=== PATIENT | female | born 1945 | race Caucasian/White ===

== ENCOUNTER → 2019-01-28 11:56 | Outpatient (CLI) | payer MEDICARE, SELFPAY ==
--- NOTE | 2019-01-28 | DI.MG.S_ITS ---
BILATERAL DIGITAL SCREENING MAMMOGRAM 3D/2D WITH CAD: 01/28/2019 CLINICAL: Routine screening. Comparison is made to exams dated: 08/15/2017 mammogram, 03/07/2016 mammogram, and 11/03/2014 mammogram - [facility]. There are scattered fibroglandular elements in both breasts. Current study was also evaluated with a Computer Aided Detection (CAD) system. There are benign calcifications in the left breast. There also are benign biopsy clips in the left breast. No significant masses, calcifications, or other findings are seen in either breast. There has been no significant interval change. IMPRESSION: There is no mammographic evidence of malignancy. A 1 year screening mammogram is recommended. This exam was interpreted at Station ID: [id number]. NOTE: For mammograms, a report in lay terms will be sent to the patient. Approximately 15% of breast malignancies will not be visualized mammographically. In the management of a palpable breast mass, a negative mammogram must not discourage biopsy of a clinically suspicious lesion. Electronically Signed By: Shakira mcknight/triston:01/28/2019 20:07:55 letter sent: Normal Exam ACR BI-RADS Category 2: Benign Finding(s) 3342F
== END ==
PROVIDERS: PCP Family Medicine; Visit Provider Family Medicine
DX: Z12.31 Encounter for screening mammogram for malignant neoplasm of breast (principal)
CPT/HCPCS: 77063; 77067

== ENCOUNTER → 2020-02-19 11:12 | Outpatient (CLI) | payer MEDICARE, SELFPAY ==
--- NOTE | 2020-02-19 | DI.MRI.S_ITS ---
PROCEDURE: MR STROKE Pre- and post-contrast brain MRI, non-contrast brain MR angiogram, pre- and postcontrast neck MR angiogram INDICATIONS: Transient cerebral ischemic attack, unspecified TECHNIQUE: Brain: Noncontrast axial T1 spin echo, axial T2 fast spin echo, sagittal and axial FLAIR, coronal T2 fast spin echo, axial gradient echo, axial diffusion and ADC through the brain. After the administration of contrast, axial 3D VIBE of the cranial vasculature and brain. Brain MRA: Non-contrast 3-D time of flight MR angiogram, with multiple townzgk-vvpsiyjih-fgrxufdefs (MIP) reformats performed. Neck MRA: Axial and sagittal TruFISP through the neck. Coronal dynamic MR angiogram during administration of contrast in the arterial and venous phases, with 3-dimenstional sdbpuop-awzbeyxge-igsxumtjme (MIP) reformats constructed from subtraction images. COMPARISON: None. FINDINGS: Image quality: Excellent. BRAIN: CSF spaces: Ventricles are normal in size and shape. Basal cisterns are patent. No extra-axial fluid collections. Brain: No intracranial bleeds or mass effects. Dietrich-white matter interface is normal. Diffusion weighted images show no acute ischemic insults. Brainstem appears normal. Normal intravascular flow voids are present. No abnormal intracranial enhancement. Skull and face: Calvarial marrow signal is normal. Orbits appear normal. Note is made of bilateral lens replacements. Sinuses: Sinuses and mastoids are clear. There is a left sided ismael bullosa, with associated mild to moderate rightward nasal septal deviation noted. BRAIN MR ANGIOGRAM: Anterior circulation: Intracranial internal carotid arteries are normal in size and enhancement. The flow within the paired anterior cerebral arteries is normal and symmetric. The flow within the middle cerebral arteries is normal and symmetric. The anterior communicating artery is not well seen. No stenoses, occlusions, or aneurysms. Posterior circulation: The visualized portions of the vertebral arteries demonstrate normal caliber, and join to form a normal appearing basilar artery. The flow within the posterior cerebral arteries is normal and symmetric. No stenoses, occlusions, or aneurysms. NECK MR ANGIOGRAM: Carotids: Great vessels demonstrate a conventional anatomy as they arise from the aortic arch. The origins of the common carotid arteries appear patent. The calibers and courses of both common carotid arteries are normal. The bifurcation regions appear normal bilaterally. The internal carotid arteries demonstrate normal course and caliber. Posterior circulation: The origins of the vertebral arteries appear patent. More superior portions of both vertebral arteries demonstrate normal course and caliber, and join to form a normal appearing basilar artery. Miscellaneous: Subclavian arteries appear patent. Pre-contrast images through the neck show no soft tissue abnormalities. IMPRESSION: BRAIN MRI: No findings of acute or subacute infarction can be seen. Note is made of age-appropriate brain parenchymal volume loss and chronic small vessel ischemic changes. BRAIN MR ANGIOGRAM: No significant intracranial arterial abnormality can be seen. NECK MR ANGIOGRAM: Within the arteries of the neck, no hemodynamically significant stenosis can be seen. Dictated by: Vasiliy Irwin M.D. on 02/19/2020 at 12:22 Approved by: Vasiliy Irwin M.D. on 02/19/2020 at 12:24
== END ==
PROVIDERS: PCP Family Medicine; Referring Provider Family Medicine; Visit Provider Family Medicine
DX: G45.9 Transient cerebral ischemic attack, unspecified (principal)
CPT/HCPCS: 70548; 70553

== ENCOUNTER → 2020-03-01 11:12 | Outpatient (CLI) | payer MEDICARE, SELFPAY ==
--- NOTE | 2020-03-01 11:15 | DI.MG.S_ITS ---
BILATERAL DIGITAL SCREENING MAMMOGRAM 3D/2D WITH CAD: 03/01/2020 Comparison is made to exams dated: 01/28/2019 mammogram - [facility], 08/15/2017 mammogram, and 03/07/2016 mammogram - [facility]. There are scattered fibroglandular elements in both breasts. Current study was also evaluated with a Computer Aided Detection (CAD) system. There are benign calcifications in the left breast. There also are biopsy clips in the left breast. No significant masses, calcifications, or other findings are seen in either breast. There has been no significant interval change. IMPRESSION: There is no mammographic evidence of malignancy. A 1 year screening mammogram is recommended. This exam was interpreted at Station ID: [id number]. NOTE: For mammograms, a report in lay terms will be sent to the patient. Approximately 15% of breast malignancies will not be visualized mammographically. In the management of a palpable breast mass, a negative mammogram must not discourage biopsy of a clinically suspicious lesion. Electronically Signed By: Armando cash/triston:03/01/2020 15:00:06 letter sent: Normal Exam ACR BI-RADS Category 2: Benign Finding(s) 3342F
== END ==
PROVIDERS: PCP Family Medicine; Referring Provider Family Medicine; Visit Provider Family Medicine
DX: Z12.31 Encounter for screening mammogram for malignant neoplasm of breast (principal)
CPT/HCPCS: 77063; 77067

== ENCOUNTER → 2020-05-03 10:15 | Outpatient (CLI) | payer MEDICARE, SELFPAY ==
--- NOTE | 2020-05-03 | DI.NM.S_ITS ---
PROCEDURE: NM JAYANT PERF SPECT R&S PHARM Rest and pharmacological stress myocardial perfusion SPECT with gated imaging and ejection fraction RADIOPHARMACEUTICAL: 11.7 mCi Tc-99m tetrafosmin IV at rest and 26.1 mCi Tc-99m tetrafosmin IV at peak effect of pharmacological stress. Pon-qlw-azkwzqno was performed. INDICATIONS: ST ELEVATION TECHNIQUE: Radiopharmaceutical was injected at peak stress test, and also at rest. SPECT images were obtained. SPECT myocardial perfusion images were displayed in short axis, horizontal long axis, and vertical long axis views. Gated images were reviewed using [employer] software. COMPARISON: None. CARDIAC STRESS: A pharmacologic stress test was performed under the supervision of an attending staff, using an infusion of Lexiscan . Hemodynamic data: There is normal blood pressure and heart rate response to pharmacologic stress. Symptoms: The patient denied anginal chest pain. Aminophylline: Not used EKG: No diagnostic changes of ischemia; no ectopy. FINDINGS: Raw data: There is good myocardial uptake of radiotracer. No significant motion artifacts. Orhj-kb-gocbr ratio is 0.32 (normal is less than 0.38 for tetrafosmin tracer). Left ventricle function: Gated images demonstrate normal left ventricular wall thickening. No segmental wall motion abnormalities. No transient ischemic dilation; TID is 0.79 (normal less than 1.3). Left ventricle resting end diastolic volume is 49 mL. Left ventricle stress ejection fraction is >75% ; normal range is above 45%. Myocardial perfusion: There is normal distribution of activity in the left ventricular myocardium. No fixed or reversible perfusion defects. IMPRESSION: -Normal pharmacological myocardial perfusion study with no evidence of ischemia or scar. -Hyperdynamic LV. -Low risk study Dictated by: Omi Lee M.D. on 05/03/2020 at 20:08 Approved by: Omi Lee M.D. on 05/03/2020 at 20:11
== END ==
PROVIDERS: PCP Family Medicine; Referring Provider Family Medicine; Visit Provider Family Medicine
DX: I21.29 ST elevation (STEMI) myocardial infarction involving other sites (principal)
CPT/HCPCS: 78452; 93017; A9502; J2785

== ENCOUNTER → 2020-09-16 11:11 | Outpatient (CLI) | payer MEDICARE, SELFPAY ==
--- NOTE | 2020-09-16 11:58 | DI.CT.S_ITS ---
PROCEDURE: CT ABDOMEN PELVIS WO/W CON INDICATIONS: Other microscopic hematuria TECHNIQUE: Optional 5 mm thick noncontrast images acquired from the diaphragm to the symphysis pubis. After the administration of intravenous contrast, 5 mm thick images acquired from the diaphragm to the symphysis pubis after a 10-minute delay. 2 mm thick coronal and sagittal reformats were then performed of the kidneys and ureters. For radiation dose reduction, the following was used: automated exposure control, adjustment of mA and/or kV according to patient size. COMPARISON: None. FINDINGS: Image quality: Excellent. Lung bases: Lung bases are clear. Heart size is normal. Small to moderate hiatal hernia behind the heart. Urinary system: Both kidneys are normal in size, without hydronephrosis or nephrolithiasis on pre-contrast images. No perinephric fat stranding. There is normal bilateral renal enhancement. Renal calyces appear normal in morphology when filled with contrast. Opacified portions of both ureters demonstrate normal caliber. Bladder wall thickness is normal. No calcified bladder stones. Other solid organs: Liver is normal in size and enhancement. Gallbladder appears normal except for possible several very small noncalcified stones or sludge within the gallbladder lumen posteriorly . Biliary system is non dilated. Pancreas enhances normally. Spleen is normal in size and enhancement. No adrenal nodules. Peritoneum and bowel: Bowel loops demonstrate normal wall thickness and caliber. No free fluid or air. Nodes and vessels: No retroperitoneal or mesenteric adenopathy by size criteria. Aorta and inferior vena cava are normal in size. Abdominal wall: No ventral hernias. Pelvis: No pathologic free pelvic fluid. No inguinal hernias or adenopathy. Bones: No suspicious bony lesions. No vertebral body compression fractures. IMPRESSION: No urinary tract stones are found. No urothelial or renal cortical mass lesion is identified. A source of micro hematuria is not found. No current active disease is identified. Incidental note is made of a small to moderate size sliding hiatal hernia behind the heart. Dictated by: Gelacio Barboza M.D. on 09/16/2020 at 12:00 Approved by: Gelacio Barboza M.D. on 09/16/2020 at 12:03
== END ==
PROVIDERS: PCP Family Medicine; Referring Provider Family Medicine; Visit Provider Family Medicine
DX: R31.29 Other microscopic hematuria (principal); K44.9 Diaphragmatic hernia without obstruction or gangrene
CPT/HCPCS: 74178; Q9967

== ENCOUNTER → 2021-01-12 13:30 | Outpatient (CLI) | payer MEDICARE, SELFPAY | PROVIDERS: PCP Family Medicine; Visit Provider Specialist | DX: N39.0 Urinary tract infection, site not specified (principal); R31.9 Hematuria, unspecified; N95.2 Postmenopausal atrophic vaginitis | CPT/HCPCS: 52000; 81002; 87086; 99214 ==

== ENCOUNTER → 2021-03-10 11:12 | Outpatient (CLI) | payer MEDICARE, SELFPAY ==
--- NOTE | 2021-03-10 11:14 | DI.MG.S_ITS ---
BILATERAL DIGITAL SCREENING MAMMOGRAM 3D/2D WITH CAD: 03/10/2021 CLINICAL: Routine screening. Comparison is made to exams dated: 03/01/2020 mammogram, 01/28/2019 mammogram - [facility], and 08/15/2017 mammogram - [facility]. There are scattered fibroglandular elements in both breasts. Current study was also evaluated with a Computer Aided Detection (CAD) system. There are benign calcifications in both breasts. There also are biopsy clips in the left breast. There are mole markers on both breasts. No significant masses, calcifications, or other findings are seen in either breast. There has been no significant interval change. IMPRESSION: BENIGN There is no mammographic evidence of malignancy. A 1 year screening mammogram is recommended. This exam was interpreted at Station ID: [id number]. NOTE: For mammograms, a report in lay terms will be sent to the patient. Approximately 15% of breast malignancies will not be visualized mammographically. In the management of a palpable breast mass, a negative mammogram must not discourage biopsy of a clinically suspicious lesion. Electronically Signed By: Irineo Fontaine acr/penrad:03/10/2021 12:40:23 letter sent: Normal Exam ACR BI-RADS Category 2: Benign Finding(s) 3342F
== END ==
PROVIDERS: PCP Family Medicine; Referring Provider Family Medicine; Visit Provider Family Medicine
DX: Z12.31 Encounter for screening mammogram for malignant neoplasm of breast (principal)
CPT/HCPCS: 77063; 77067

== ENCOUNTER 2021-09-04 08:13 | Inpatient (IN) | payer MEDICARE, SELFPAY ==
[2021-09-04] VITALS (48 sets, daily range): BP systolic 73–160; BP diastolic 38–79; PULSE 70–102; RESP 0–26; TEMP 35.1–36.5; O2SAT 92–100; BMI 25.7
--- NOTE | 2021-09-04 | PATH_ITS ---
[facility] Accession Number: [id number] . 01 Material submitted: . gallbladder - GALLBLADDER . 02 Diagnosis: Gallbladder, Cholecystectomy: Cholelithiasis with mild chronic and active cholecystitis. No evidence of neoplasm. [facility] 09/07/2021 1719 Local . 02 Electronically signed: . Ryan Angeles MD, PhD, Pathologist NPI- [id number] . 01 Gross description: . The specimen is received in formalin labeled gallbladder and consists of a 7.5 x 3.0 x 2.5 cm previously disrupted gallbladder with a 0.2 cm in diameter cystic duct. The serosa is fernandez-pink and wrinkled. Opening reveals green viscous bile with two black-brown multifaceted choleliths measuring 0.5 x 0.4 x 0.3 cm in aggregate. The mucosa is fernandez-pink and velvety and the wall thickness measures 0.2 cm. Corporate Staff Accountant sections are submitted, to include the en face cystic duct margin (blue) in cassette A1. ([id number]) /[facility] 09/06/[id number] Local . 02 Pathologist provided ICD-10: K81.2 . 02 CPT . 909610 Performed at: 01 [facility] [address], [place], [place] [id number] MD Alfredito Shankar MD Phone: [phone] Performed at: 02 [facility] [address] [place], [place] [id number] MD Isi Bowman MD Phone: [phone]
--- NOTE | 2021-09-04 08:15 | ED.GENADULT ---
HPI - General Adult General Chief complaint: Chest Pain Stated complaint: Poss Cardiac issues- sent by [place] EMT's Time Seen by Provider: 09/04/21 08:15 History of Present Illness HPI narrative: 75-year-old woman from [facility] with a history of hypertension, ITP, surgically removed thyroid on replacement, scoliosis with left hip pain was awoken from sleep this morning to a.m. with severe chest pain she rated as an 8/10 focus between her breasts and associated with bandlike tightness around her lower chest just under her breasts. Was not associated with diaphoresis, dyspnea or palpitations. She did have an episode of emesis prior to arrival. On arrival in the emergency department after being transported from [facility], she is complaining of 4/10 pain that continues to feel like a band like tightness. She notes that she had a large hiatal hernia it was causing dyspnea about 8 years ago that was surgically repaired. She notes that prior to arrival she took a regular aspirin and was given 4 chewable aspirin by medics. She think she was also given some nitroglycerin by medics and that it may have helped but she is not entirely certain. She describes no recent increase in exertional dyspnea no prior chest pain no personal history of cardiac issues, no abdominal pain or diarrhea, no orthopnea, no lower extremity edema and no recent headaches. Related Data Home Medications Medication Instructions Recorded Confirmed levothyroxine 112 mcg tablet 112 mcg PO QAM 04/19/21 09/04/21 estradiol 1 g VAGINAL 2XW 09/04/21 09/04/21 netarsudil 0.02 %-latanoprost 1 drp OPHTHALMIC (EYE) QAM 09/04/21 09/04/21 0.005 % eye drops ([facility]) simvastatin 40 mg tablet 40 mg PO DAILY 09/04/21 09/04/21 vitamin B complex (B 1 tab PO QAM 09/04/21 09/04/21 Complex-Vitamin B12) Previous Rx's Medication Instructions Recorded chlorthalidone 25 mg tablet 25 mg PO QAM #90 tab 02/13/17 irbesartan 150 mg tablet 150 mg PO QAM #90 tab 02/13/17 sertraline 100 mg tablet 100 mg PO QAM #90 tab 02/13/17 oxycodone-acetaminophen 5 mg-325 2 tab PO Q4H PRN #30 tab 07/11/21 mg tablet Allergies Allergy/AdvReac Type Severity Reaction Status Date / Time No Known Drug Allergies Allergy Verified 09/04/21 08:21 Review of Systems Review of Systems Narrative: Remainder of complete review of systems is otherwise unremarkable except for that included in the HPI. Patient History Medical History Arthritis Atrophic vaginitis Benign microscopic hematuria Cystocele History of skin cancer Hypertension (01/05/15) Hypothyroidism (01/05/15) Inflammatory bowel disease Rectocele Recurrent UTI Scar of conjunctiva of right eye Scoliosis Screening for breast cancer Surgical History H/O thyroidectomy History of hip replacement History of repair of hiatal hernia Status post glaucoma surgery Status post Annamaria fundoplication Family History Father Coronary artery disease Gout Hypertension Social History marital status: unmarried,single number of children: 2 household members: significant other Smoking Status: Never smoker alcohol intake: current caffeine: Yes Smoking Status: Never smoker Exam Narrative Exam Narrative: General: Healthy appearing, in no acute distress. Able to give a complete and coherent history. Well-nourished well-developed HEENT: Moist mucous membranes, normal sclera with reactive pupils, Neck: No JVD, supple Respiratory: Lungs are clear to auscultation, no wheezing no rales no rhonchi. Full and symmetrical air movement Cardiac: Regular rate and rhythm no murmurs no bruits Abdomen: Soft, nontender, good bowel tones, no flank pain Skin: Warm and dry, no rashes Neurologic: Grossly neurologically intact with no obvious asymmetries or abnormalities Extremities: No trauma, well perfused Psych: Cooperative, appropriate insight and affect Initial Vital Signs Initial Vital Signs: Vital Signs Pulse Rate 98 H 09/04/21 08:19 Pulse Oximetry 95 09/04/21 08:19 Course Orders Ordered: ED Orders 09/04/21 09:26 CT abdomen pelvis w con Stat 09/04/21 09:28 COVID19 - ADMIT (ASSISTANT SPA DIRECTOR swab/PCR) Stat 09/04/21 09:45 Ictotest Urine Stat Urinalysis and Microscopic Stat 09/04/21 12:48 MR abdomen wo con Stat Acetaminophen (Acetaminophen 325 Mg Tablet) 650 mg PO Q6HR ZORAIDA Al Hydrox/Mg Hydrox/Simethicone (Mag Hydrox/Alum/Simeth 30 Ml Udc) 30 ml PO Q6HR PRN PRN Reason: Dyspepsia Calcium Carbonate (Calcium Carbonate 500 Mg Tab) 1,000 mg PO Q4HR PRN PRN Reason: Dyspepsia Fentanyl (Fentanyl 100 Mcg/2 Ml Inj) 0 mcg IV Q5M PRN PRN Reason: Pain, Moderate (4-6) Hydromorphone HCl (Hydromorphone 0.5 Mg Inj) 0.5 mg IV Q6H PRN PRN Reason: Pain, Moderate (4-6) Hydromorphone HCl (Hydromorphone 2 Mg Inj) 0 mg IV Q5M PRN PRN Reason: Pain, Severe (7-10) Sodium Chloride (Normal Saline 0.9%) 1,000 mls @ 100 mls/hr IV CONT ZORAIDA Piperacillin Sod/Tazobactam (Sod 3.375 gm/ Sodium Chloride) 100 mls @ 25 mls/hr IV Q8H ZORAIDA Last Admin: 09/04/21 17:35 Dose: 25 mls/hr Documented by: CECIL Lactated Ringer's (Lactated Ringers) 1,000 mls @ 42 mls/hr IV NOW ONE Stop: 09/05/21 17:20 Last Admin: 09/04/21 17:32 Dose: 42 mls/hr Documented by: KEVIN Lorazepam (Lorazepam 2 Mg/Ml Inj) 0.25 mg IV NOW PRN PRN Reason: Anxiety Naloxone HCl (Naloxone 0.4 Mg/Ml Vial) 0.2 mg IV Q2MIN PRN PRN Reason: Opiate Reversal Ondansetron HCl (Ondansetron 4 Mg/2 Ml Inj) 4 mg IV Q8HR PRN PRN Reason: Nausea And Vomiting Ondansetron HCl (Ondansetron 4 Mg/2 Ml Inj) 4 mg IV NOW PRN PRN Reason: Nausea And Vomiting Oxycodone HCl (Oxycodone Ir 5 Mg Tablet) 5 mg PO Q6HR PRN PRN Reason: Pain, Moderate (4-6) Oxycodone/Acetaminophen (Oxycodone/Acetaminophen 5/325 Tablet) 1 tab PO PACUNOW PRN PRN Reason: Mild or Moderate Pain Discontinued Medications Bupivacaine HCl (Bupivacaine 0.5% (Pf) Vial) 30 ml INJ NOW ONE Stop: 09/04/21 18:08 Last Admin: 09/04/21 18:07 Dose: 20 ml Documented by: ANTONIO Sodium Chloride (Normal Saline 0.9%) 1,000 mls @ 1,000 mls/hr IV BOLUS ONE Stop: 09/04/21 10:19 Last Infusion: 09/04/21 12:44 Dose: 0 mls/hr Documented by: Admin: 09/04/21 09:26 Dose: 1,000 mls/hr Documented by: NILDA Ceftriaxone Sodium 2,000 mg/ (Sodium Chloride) 100 mls @ 200 mls/hr IV NOW ONE Stop: 09/04/21 09:27 Last Infusion: 09/04/21 10:22 Dose: 0 mls/hr Documented by: Admin: 09/04/21 09:40 Dose: 200 mls/hr Documented by: RICHIE Nitroglycerin (Nitroglycerin 0.4 Mg Sl Tab) 0.4 mg SL [id number] PRN PRN Reason: Chest Pain Last Admin: 09/04/21 08:54 Dose: 0.4 mg Documented by: Admin: 09/04/21 08:40 Dose: 0.4 mg Documented by: Admin: 09/04/21 08:34 Dose: 0.4 mg Documented by: RICHIE Vital Signs Vital signs: Vital Signs - 8 hr 09/04/21 10:30 09/04/21 11:00 09/04/21 11:09 Pulse Rate 91 H 90 91 H Respiratory Rate 17 26 H Blood Pressure 117/70 120/65 110/67 Pulse Oximetry 96 95 94 09/04/21 11:30 09/04/21 12:00 09/04/21 12:30 Pulse Rate 91 H 90 92 H Respiratory Rate 18 13 13 Blood Pressure 118/67 121/69 124/71 Pulse Oximetry 96 97 98 09/04/21 13:00 09/04/21 13:30 09/04/21 14:00 Pulse Rate 90 92 H 86 Respiratory Rate 16 19 16 Blood Pressure 119/68 120/70 123/68 Pulse Oximetry 97 98 09/04/21 14:30 09/04/21 16:41 Pulse Rate 83 81 Respiratory Rate 17 Blood Pressure 118/61 147/70 H Pulse Oximetry 97 Medical Decision Making Lab Data Result diagrams: 09/04/21 08:20 09/04/21 08:20 Labs: Lab Results 09/04/21 09/04/21 09/04/21 Range/Units 08:20 08:20 08:20 WBC 11.3 H (4.5-11.0) X10^3/uL RBC 4.10 (4.0-5.2) X10^6/uL Hgb 13.6 (12.0-16.0) g/dL Hct 39.9 (36-46) % MCV 97.3 (80-100) fL MCH 33.1 (26-34) PG MCHC 34.0 (30-36) % RDW 13.4 (11.6-14.8) % Plt Count 103 L (150-400) X10^3/uL Neut % (Auto) 93.3 H (50-75) % Lymph % (Auto) 2.4 L (25-40) % [place] % (Auto) 3.3 (3-14) % Eos % (Auto) 0.8 L (2-4) % Baso % (Auto) 0.2 (0-2) % Neut # (Auto) 23005 H (4418-6621) /uL Lymph # (Auto) 300 L (6521-7492) /uL [place] # (Auto) 400 (0-900) /uL Eos # (Auto) 100 (0-450) /uL Baso # (Auto) 0 (0-100) /uL Sodium 137 (137-145) mmol/L Potassium 3.5 (3.4-5.1) mmol/L Chloride 99 (98-107) mmol/L Carbon Dioxide 30 (22-32) mmol/L BUN 24 H (7-17) mg/dL Creatinine 0.92 (0.52-1.04) mg/dL Estimated GFR 59.4 L (>60) mL/min BUN/Creatinine Ratio 26.1 H (6-22) Glucose 130 H (80-110) mg/dL Calcium 9.8 (8.4-10.2) mg/dL Magnesium 1.6 (1.6-2.3) mg/dL Total Bilirubin 5.4 H (0.2-1.3) mg/dL AST 336 H (14-36) IU/L ALT 263 H (<35) IU/L Alkaline Phosphatase 204 H (38-126) U/L Troponin I < 0.012 (0.01-0.034) ng/mL Total Protein 7.8 (6.3-8.2) g/dL Albumin 4.5 (3.5-5.0) g/dL Globulin 3.3 (1.7-4.1) g/dL Albumin/Globulin Ratio 1.4 (1.0-2.8) Lipase 171 (23-300) U/L Urine Color Urine Appearance Urine pH (4.5-8.0) Ur Specific [place] (1.000-1.035) Urine Protein (Negative) Urine Glucose (UA) (Negative) g/dL Urine Ketones (NEGATIVE) Urine Occult Blood (Negative) Urine Nitrate (Negative) Urine Bilirubin (NEGATIVE) Ur Bilirubin Confirm (Negative) Urine Urobilinogen (0.2) E.U./dL Ur Leukocyte Esterase (NEGATIVE) Urine RBC (0-5/HPF) Urine WBC (0-5/HPF) Ur Squamous Epith Cells (0-5/HPF) Urine Bacteria (None) Ur Culture Indicated? SARS-CoV-2 (PCR) (Negative) 09/04/21 09/04/21 Range/Units 09:28 09:45 WBC (4.5-11.0) X10^3/uL RBC (4.0-5.2) X10^6/uL Hgb (12.0-16.0) g/dL Hct (36-46) % MCV (80-100) fL MCH (26-34) PG MCHC (30-36) % RDW (11.6-14.8) % Plt Count (150-400) X10^3/uL Neut % (Auto) (50-75) % Lymph % (Auto) (25-40) % [place] % (Auto) (3-14) % Eos % (Auto) (2-4) % Baso % (Auto) (0-2) % Neut # (Auto) (2448-5828) /uL Lymph # (Auto) (6484-9569) /uL [place] # (Auto) (0-900) /uL Eos # (Auto) (0-450) /uL Baso # (Auto) (0-100) /uL Sodium (137-145) mmol/L Potassium (3.4-5.1) mmol/L Chloride (98-107) mmol/L Carbon Dioxide (22-32) mmol/L BUN (7-17) mg/dL Creatinine (0.52-1.04) mg/dL Estimated GFR (>60) mL/min BUN/Creatinine Ratio (6-22) Glucose (80-110) mg/dL Calcium (8.4-10.2) mg/dL Magnesium (1.6-2.3) mg/dL Total Bilirubin (0.2-1.3) mg/dL AST (14-36) IU/L ALT (<35) IU/L Alkaline Phosphatase (38-126) U/L Troponin I (0.01-0.034) ng/mL Total Protein (6.3-8.2) g/dL Albumin (3.5-5.0) g/dL Globulin (1.7-4.1) g/dL Albumin/Globulin Ratio (1.0-2.8) Lipase (23-300) U/L Urine Color Shruti Urine Appearance Sl cloudy Urine pH 5.5 (4.5-8.0) Ur Specific [place] 1.020 (1.000-1.035) Urine Protein 1+ H (Negative) Urine Glucose (UA) Trace H (Negative) g/dL Urine Ketones 1+ H (NEGATIVE) Urine Occult Blood 3+ H (Negative) Urine Nitrate Negative (Negative) Urine Bilirubin 2+ H (NEGATIVE) Ur Bilirubin Confirm Positive H (Negative) Urine Urobilinogen 2.0 H (0.2) E.U./dL Ur Leukocyte Esterase Trace H (NEGATIVE) Urine RBC 5-10/hpf H (0-5/HPF) Urine WBC 1-5/hpf (0-5/HPF) Ur Squamous Epith Cells 5-10 /hpf H (0-5/HPF) Urine Bacteria Few (2-10) H (None) Ur Culture Indicated? Cult not indicated SARS-CoV-2 (PCR) Negative (Negative) Urine Dip Bedside Urine Glucose Negative Bedside Urine Bilirubin ++ 2 Bedside Urine Ketone +/- 5 Urine Specific [place] 1.020 Bedside Urine Occult Blood +++ Bedside Urine pH 6.0 Bedside Urine Protein + 30 Bedside Urine Urobilinogen 2+ 4mg Bedside Urine Nitrite - Negative Bedside Urine Leukocytes + 70 Esterase Point of care testing: Urine Dip Bedside Urine Glucose Negative Bedside Urine Bilirubin ++ 2 Bedside Urine Ketone +/- 5 Urine Specific [place] 1.020 Bedside Urine Occult Blood +++ Bedside Urine pH 6.0 Bedside Urine Protein + 30 Bedside Urine Urobilinogen 2+ 4mg Bedside Urine Nitrite - Negative Bedside Urine Leukocytes + [address] scan - abdomen/pelvis: Radiologist's Impression: FINDINGS:? Image quality:? There is metallic streak artifact from patient's right hip prosthesis.? ? Lung bases:? There is minimal atelectasis and scarring in the right lung base. Heart:? Heart is normal in size.? There is a small to moderate hiatal hernia. ? ABDOMEN: Liver:? Unremarkable.? ? Gallbladder:? The gallbladder is distended with a few small dependent noncalcified gallstones or biliary sludge.? No gallbladder wall thickening or pericholecystic fluid. Biliary ducts:? Unremarkable.? ? Pancreas:? Unremarkable.? ? Spleen:? Unremarkable.? ? Adrenal Glands:? Unremarkable.? ? Kidneys and Ureters:? There is no hydronephrosis.? A few small hypodense foci are demonstrated in the left kidney which are too small to characterize but likely represent cysts.? ? ? Stomach and Bowel:? Stomach and small bowel loops are normal in caliber and wall thickness.? No pericecal inflammatory changes to suggest appendicitis.? There is mild colonic wall thickening with minimal pericolonic fat stranding involving a long segment of the colon beginning in the mid ascending colon extending through the sigmoid colon suggestive of a mild infectious or inflammatory colitis.? Peritoneum:? No abnormal intraperitoneal fluid.? No free air.? ? Ventral Wall: ? No hernia.? Abdominal Nodes:? No retroperitoneal or mesenteric adenopathy by size criteria.? Vessels:? Aorta and inferior vena cava are normal in size.? ? PELVIS: Pelvic Organs:? Unremarkable.? ? Bladder:? Unremarkable.? ? Pelvic Nodes: No enlarged lymph nodes.? Miscellaneous: No inguinal hernias are seen. ? ? ? Bones:? There is a dextroscoliosis of the lumbar spine centered at L2-L3.? Multilevel moderate degenerative disc disease is demonstrated within the lower thoracic and upper lumbar spine.? There is also multilevel moderate facet arthropathy in the lower lumbar spine. ? ? IMPRESSION:? ? 1. Distention of the gallbladder with small dependent noncalcified gallstones or biliary sludge.? No gallbladder wall thickening or pericholecystic fluid to suggest definite cholecystitis.? Further evaluation may be obtained with ultrasound if there is clinical suspicion for cholecystitis. ? 2. Long-segment mild colonic wall thickening as described suggestive of a mild infectious or inflammatory colitis.? ? ? Dictated by: Alfredito Kruse M.D. on 09/04/2021 at 9:05? ?? US - abdomen: Radiologist's Impression: FINDINGS:? ? Liver:? Liver is enlarged measuring 17.5 cm with diffuse increased echogenicity.? No focal lesions. ? Gallbladder:? Gallbladder demonstrates mobile areas of increased echogenicity.? Wall is mildly thickened measuring 3.1 cm.? The gallbladder is markedly distended.? ? Biliary ducts:? Intrahepatic bile ducts are non-dilated.? Extrahepatic bile duct caliber measures 8.8 mm.? Normal is 6-7 mm or less in diameter, or 10 mm or less post-cholecystectomy.? ? Pancreas:? Pancreas is only seen in limited view.? Please see CT abdomen pelvis report of 09/04/2021 for further details. ? ? IMPRESSION:? ? 1. Hepatomegaly with steatosis. ? 2. Markedly distended gallbladder with gallstones as well as mildly prominent wall thickness.? Cholelithiasis with potential cholecystitis should be considered as clinically appropriate. ? Dictated by: Leticia Guerrero M.D. on 09/04/2021 at 9:52? ?? ECG Data Interpretation: Sinus rhythm at a rate of 93 Leftward axis, normal interval No acute ischemic changes MDM Narrative Medical decision making narrative: 75-year-old woman with history of hypertension and hyperlipidemia presents with bandlike chest pain at 2:00 a.m. this morning. Cardiac workup is entirely unremarkable with negative troponins. White count is 11.3, chemistries reveal significantly elevated total bili AST ALT and alk-phos. She does not initially complain of right upper quadrant tenderness however with deep palpation she does note some mild discomfort. Ultrasound shows markedly distended gallbladder with gallstones as well as mildly prominent wall thickness. CT scan of the abdomen is done due to the elevated bilirubin and alk-phos this reveals distended gallbladder mild colonic wall thickening suggestive of mild infectious or inflammatory colitis (which does not correlate with clinical complaints for physical exam). Liver, biliary ducts and pancreas are all described as normal. Patient is currently afebrile. Will review findings with Dr. Rivera, general surgeon. 12:[address] Rivera. He recommends ERCP. If a stone is noted then she will need transfer and if not will be able to admit her here with anticipation of cholecystectomy Discharge Plan Departure Patient Disposition: Admitted as Observation Clinical Impression: Acute cholecystitis Admit Date/Time: 09/04/21 17:02 Admit Provider: Sudheer Rivera
--- NOTE | 2021-09-04 08:31 | DI.RAD.S_ITS ---
PROCEDURE: XR CHEST 1V INDICATIONS: Chest pain TECHNIQUE: One view of the chest was acquired. COMPARISON: None. FINDINGS: Surgical changes and devices: Surgical clips at midline in the thoracic inlet. Lungs and pleura: Subtle perihilar infiltrates. No pleural effusions or pneumothorax. Mediastinum: Mediastinal contours appear normal. Heart size is normal. Tortuous aorta. Suspect a moderate-sized hiatal hernia. Bones and chest wall: Moderate scoliosis. No suspicious bony lesions. Overlying soft tissues appear unremarkable. IMPRESSION: 1. Subtle perihilar infiltrates. 2. Question moderate-sized hiatal hernia. Dictated by: Erma Hammond M.D. on 09/04/2021 at 9:07 Approved by: Erma Hammond M.D. on 09/04/2021 at 9:09
[2021-09-04] MEDS: NITROGLYCERIN 0.4 MG SL TAB SL ×3 (08:34→08:54)
[2021-09-04 08:42] LABS: Add Manual Diff / Slide Review NO; Basophils Absolute Auto 0 /uL (0-100); Basophils Percent Auto 0.2 % (0-2); Eosinophils Absolute Auto 100 /uL (0-450); Eosinophils Percent Auto 0.8 % (2-4); Hematocrit 39.9 % (36-46); Hemoglobin 13.6 g/dL (12.0-16.0); Lymphocytes Absolute Auto 300 /uL (1100-4500); Lymphocytes Percent Auto 2.4 % (25-40); Mean Corpuscular Hemoglobin 33.1 PG (26-34); Mean Corpuscular Volume 97.3 fL (80-100); Monocytes Absolute Auto 400 /uL (0-900); Monocytes Percent Auto 3.3 % (3-14); Neutrophils Absolute Auto 10500 /uL (1500-7000); Neutrophils Percent Auto 93.3 % (50-75); Platelet Count 103 X10^3/uL (150-400); Red Cell Distribution Width 13.4 % (11.6-14.8); White Blood Cell Count 11.3 X10^3/uL (4.5-11.0)
[2021-09-04 08:54] LABS: Alanine Aminotransferase 263 IU/L (<35); Albumin 4.5 g/dL (3.5-5.0); Albumin Globulin Ratio 1.4 (1.0-2.8); Alkaline Phosphatase 204 U/L (38-126); Aspartate Aminotransferase 336 IU/L (14-36); BUN Creatinine Ratio 26.1 (6-22); Bilirubin Total 5.4 mg/dL (0.2-1.3); Blood Urea Nitrogen 24 mg/dL (7-17); Calcium 9.8 mg/dL (8.4-10.2); Carbon Dioxide 30 mmol/L (22-32); Chloride 99 mmol/L (98-107); Estimated Glomerular Filt Rate 59.4 mL/min (>60); Globulin 3.3 g/dL (1.7-4.1); Glucose 130 mg/dL (80-110); HEMOLYSIS 27 (0-50); Lipase 171 U/L (23-300); Potassium 3.5 mmol/L (3.4-5.1); Sodium 137 mmol/L (137-145); Total Protein 7.8 g/dL (6.3-8.2)
[2021-09-04 08:55] LABS: Magnesium 1.6 mg/dL (1.6-2.3)
--- NOTE | 2021-09-04 08:57 | DI.US.S_ITS ---
PROCEDURE: US ABDOMEN LIMITED INDICATIONS: ELEVATED LIVER FUNCTION TESTS TECHNIQUE: Real-time scanning was performed of the abdominal and retroperitoneal organs, with image documentation. COMPARISON: [facility], CT, CT ABDOMEN PELVIS W CON, 09/04/2021, 9:39. FINDINGS: Liver: Liver is enlarged measuring 17.5 cm with diffuse increased echogenicity. No focal lesions. Gallbladder: Gallbladder demonstrates mobile areas of increased echogenicity. Wall is mildly thickened measuring 3.1 cm. The gallbladder is markedly distended. Biliary ducts: Intrahepatic bile ducts are non-dilated. Extrahepatic bile duct caliber measures 8.8 mm. Normal is 6-7 mm or less in diameter, or 10 mm or less post-cholecystectomy. Pancreas: Pancreas is only seen in limited view. Please see CT abdomen pelvis report of 09/04/2021 for further details. IMPRESSION: 1. Hepatomegaly with steatosis. 2. Markedly distended gallbladder with gallstones as well as mildly prominent wall thickness. Cholelithiasis with potential cholecystitis should be considered as clinically appropriate. Dictated by: Leticia Guerrero M.D. on 09/04/2021 at 9:52 Approved by: Leticia Guerrero M.D. on 09/04/2021 at 9:54
--- NOTE | 2021-09-04 09:02 | PC.NURSE ---
No change in pain after 3rd nitro.
[2021-09-04 09:06] LABS: Troponin I < 0.012 ng/mL (0.01-0.034)
[2021-09-04] MEDS: SODIUM CHLORIDE 0.9% 1,000 ML 1000 ML IV (09:26)
--- NOTE | 2021-09-04 09:26 | DI.CT.S_ITS ---
PROCEDURE: CT ABDOMEN PELVIS W CON INDICATIONS: bandlike abd pain, elevated bili/alk phos TECHNIQUE: After the administration of IV contrast, axial sections were acquired from the lung bases to the pubic symphysis. Coronal and sagittal reformats were performed. For radiation dose reduction, the following was used: automated exposure control, adjustment of mA and/or kV according to patient size. COMPARISON: [facility], CT, CT ABDOMEN PELVIS WO/W CON, 09/16/2020, 11:20. [facility], US, US ABDOMEN LIMITED, 09/04/2021, 9:08. FINDINGS: Image quality: There is metallic streak artifact from patient's right hip prosthesis. Lung bases: There is minimal atelectasis and scarring in the right lung base. Heart: Heart is normal in size. There is a small to moderate hiatal hernia. ABDOMEN: Liver: Unremarkable. Gallbladder: The gallbladder is distended with a few small dependent noncalcified gallstones or biliary sludge. No gallbladder wall thickening or pericholecystic fluid. Biliary ducts: Unremarkable. Pancreas: Unremarkable. Spleen: Unremarkable. Adrenal Glands: Unremarkable. Kidneys and Ureters: There is no hydronephrosis. A few small hypodense foci are demonstrated in the left kidney which are too small to characterize but likely represent cysts. Stomach and Bowel: Stomach and small bowel loops are normal in caliber and wall thickness. No pericecal inflammatory changes to suggest appendicitis. There is mild colonic wall thickening with minimal pericolonic fat stranding involving a long segment of the colon beginning in the mid ascending colon extending through the sigmoid colon suggestive of a mild infectious or inflammatory colitis. Peritoneum: No abnormal intraperitoneal fluid. No free air. Ventral Wall: No hernia. Abdominal Nodes: No retroperitoneal or mesenteric adenopathy by size criteria. Vessels: Aorta and inferior vena cava are normal in size. PELVIS: Pelvic Organs: Unremarkable. Bladder: Unremarkable. Pelvic Nodes: No enlarged lymph nodes. Miscellaneous: No inguinal hernias are seen. Bones: There is a dextroscoliosis of the lumbar spine centered at L2-L3. Multilevel moderate degenerative disc disease is demonstrated within the lower thoracic and upper lumbar spine. There is also multilevel moderate facet arthropathy in the lower lumbar spine. IMPRESSION: 1. Distention of the gallbladder with small dependent noncalcified gallstones or biliary sludge. No gallbladder wall thickening or pericholecystic fluid to suggest definite cholecystitis. Further evaluation may be obtained with ultrasound if there is clinical suspicion for cholecystitis. 2. Long-segment mild colonic wall thickening as described suggestive of a mild infectious or inflammatory colitis. Dictated by: Alfredito Kruse M.D. on 09/04/2021 at 9:05 Approved by: Alfredito Kruse M.D. on 09/04/2021 at 9:16
[2021-09-04] MEDS: cefTRIAXone 2,000 MG in SODIUM CHLORIDE 0.9% 100 ML 200 ML IV (09:40)
[2021-09-04 11:24] LABS: Appearance Urine UA SL CLOUDY; Bilirubin Urine UA 2+ (NEGATIVE); Glucose Urine UA TRACE g/dL (Negative); Ketones Urine UA 1+ (NEGATIVE); Leukocyte Esterase Urine UA TRACE (NEGATIVE); Nitrite Urine UA NEGATIVE (Negative); Occult Blood Urine UA 3+ (Negative); Protein Urine UA 1+ (Negative)
[2021-09-04 11:35] LABS: Color Urine UA Amber; pH Urine UA 5.5 (4.5-8.0)
[2021-09-04 11:45] LABS: Bacteria Urine Few (2-10); Culture Indicated Urine Cult Not Indicated; Ictotest Urine Positive (Negative); RBC Urine 5-10/HPF (0-5/HPF); Squamous Epithelial Cell Urine 5-10 /HPF (0-5/HPF); WBC Urine 1-5/HPF (0-5/HPF)
[2021-09-04 11:55] LABS: COVID19 - ADMIT (NP swab/PCR) Negative (Negative)
--- NOTE | 2021-09-04 12:48 | DI.MRI.S_ITS ---
PROCEDURE: MR ABDOMEN WO CON INDICATIONS: MRCP. ? common duct stone. Epigastric pain TECHNIQUE: Coronal HASTE through the abdomen, axial 2-D FLASH in- and [id number], and breath-hold T2 FSE with fat saturation through the biliary system and pancreas. Oblique coronal and axial thin-slice HASTE, radial thick-slab HASTE centered on the extrahepatic bile ducts. Intravenous secretin: Not requested. COMPARISON: [facility], CT, CT ABDOMEN PELVIS W CON, 09/04/2021, 9:39. FINDINGS: Image quality: Excellent. Pancreas and biliary system: Intra- and extra-hepatic biliary ducts are non dilated. Pancreas is normal in morphology, without adjacent soft tissue edema. Pancreatic duct is normal in caliber, without developmental anomalies. The gallbladder is distended with no significant wall thickening or pericholecystic fluid. There are layering small stones.. No gallbladder wall thickening or pericholecystic fluid. . Other solid organs: Liver is normal in size. Spleen is normal in size. No adrenal nodules. Both kidneys are normal in size, without hydronephrosis. Nodes and vessels: No retroperitoneal or mesenteric adenopathy by size criteria. Aorta and inferior vena cava are normal in size. Bowel and peritoneum: Small to moderate-sized hiatal hernia. The bowel loops are normal in caliber. No free fluid. Lung bases: No basal pleural effusions. Heart size is normal. Bones and soft tissues: Severe S-shaped scoliosis of the thoracolumbar spine. No ventral hernias. Bone marrow is of normal overall signal. IMPRESSION: 1. Cholelithiasis without evidence of acute cholecystitis. 2. No choledocholithiasis. 3. Hiatal hernia. Dictated by: Irineo Fontaine M.D. on 09/04/2021 at 15:40 Approved by: Irineo Fontaine M.D. on 09/04/2021 at 15:50
--- NOTE | 2021-09-04 17:14 | P.HP_ITS ---
History of Present Illness History of Present Illness Date Patient Seen: 09/04/21 Time Patient Seen: 17:25 Chief complaint: Poss Cardiac issues- sent by [facility] EMT's Narrative: 75 y.o woman developed epigastric pain and presented to [facility] today. Cardiac workup was negative. On further evaluation labs were significant for WBC 12, TBil 5.4, and elevated LFTs. US, CT and MRCP were performed that demonstrate cholelithiasis and wall thickening there is no common bile duct stone. Her abdominal pain has improved since admission but not yet resolved. Associated nausea no emesis or fever. No anticoagulation. No anesthetic issues with previous surgery. Nonsmoker. Relevant perioperative history 1. Annamaria fundoplication 2. ITP Patient History Medical History Arthritis Atrophic vaginitis Benign microscopic hematuria Cystocele History of skin cancer Hypertension (01/05/15) Hypothyroidism (01/05/15) Inflammatory bowel disease Rectocele Recurrent UTI Scar of conjunctiva of right eye Scoliosis Screening for breast cancer Surgical History H/O thyroidectomy History of hip replacement History of repair of hiatal hernia Status post glaucoma surgery Status post Annamaria fundoplication Family & Social History Family History Father Coronary artery disease Gout Hypertension Safety & Behavioral: Feels Safe in Current Yes Environment Tobacco & Substance use: Smoking Status Never smoker alcohol intake current alcohol intake frequency 0-2 drinks per day Substance Use Type does not use Meds Home Medications and Allergies Home Medications Medication Instructions Recorded Confirmed Type chlorthalidone 25 mg tablet 25 mg PO QAM #90 tab 02/13/17 09/04/21 Rx irbesartan 150 mg tablet 150 mg PO QAM #90 tab 02/13/17 09/04/21 Rx sertraline 100 mg tablet 100 mg PO QAM #90 tab 02/13/17 09/04/21 Rx levothyroxine 112 mcg tablet 112 mcg PO QAM 04/19/21 09/04/21 History oxycodone-acetaminophen 5 mg-325 2 tab PO Q4H PRN #30 tab 07/11/21 09/04/21 Rx mg tablet estradiol 1 g VAGINAL 2XW 09/04/21 09/04/21 History netarsudil 0.02 %-latanoprost 1 drp OPHTHALMIC (EYE) QAM 09/04/21 09/04/21 History 0.005 % eye drops ([place]) simvastatin 40 mg tablet 40 mg PO DAILY 09/04/21 09/04/21 History vitamin B complex (B 1 tab PO QAM 09/04/21 09/04/21 History Complex-Vitamin B12) Allergies Allergy/AdvReac Type Severity Reaction Status Date / Time No Known Drug Allergies Allergy Verified 09/04/21 08:21 Review of Systems Review of Systems ROS: Yes All systems reviewed with the patient and are negative except as otherwise documented Exam Vital Signs (past 8 hours): - 09/04/21 09:30 09/04/21 09:49 09/04/21 10:00 Pulse Rate 93 H 102 H 94 H Respiratory Rate Blood Pressure 130/74 117/68 Pulse Oximetry 96 98 09/04/21 10:30 09/04/21 11:00 09/04/21 11:09 Pulse Rate 91 H 90 91 H Respiratory Rate 17 26 H Blood Pressure 117/70 120/65 110/67 Pulse Oximetry 96 95 94 09/04/21 11:30 09/04/21 12:00 09/04/21 12:30 Pulse Rate 91 H 90 92 H Respiratory Rate 18 13 13 Blood Pressure 118/67 121/69 124/71 Pulse Oximetry 96 97 98 09/04/21 13:00 09/04/21 13:30 09/04/21 14:00 Pulse Rate 90 92 H 86 Respiratory Rate 16 19 16 Blood Pressure 119/68 120/70 123/68 Pulse Oximetry 97 98 09/04/21 14:30 09/04/21 16:41 09/04/21 17:08 Pulse Rate 83 81 82 Respiratory Rate 17 Blood Pressure 118/61 147/70 H 149/67 H Pulse Oximetry 97 97 09/04/21 17:09 Pulse Rate 85 Respiratory Rate Blood Pressure 149/67 H Pulse Oximetry 97 Oxygen Delivery Method Room Air Narrative Exam Narrative: Constitutional-She is oriented to person, place and time. No apparent distress Cardiovascular- regular rate, no peripheral edema Pulmonary-unlabored respiratory effort, no audible wheezing Abdominal- tenderness right upper quadrant with deep palpation Musculoskeletal-no cyanosis or clubbing Neurological-nonfocal, normal strength throughout, normal gait. Skin-warm and dry Objective Labs Result Diagrams: 09/04/21 08:20 09/04/21 08:20 Labs: Laboratory Results - last 24 hr 09/04/21 09/04/21 09/04/21 08:20 08:20 08:20 WBC 11.3 H RBC 4.10 Hgb 13.6 Hct 39.9 MCV 97.3 MCH 33.1 MCHC 34.0 RDW 13.4 Plt Count 103 L Neut % (Auto) 93.3 H Lymph % (Auto) 2.4 L [place] % (Auto) 3.3 Eos % (Auto) 0.8 L Baso % (Auto) 0.2 Neut # (Auto) 01401 H Lymph # (Auto) 300 L [place] # (Auto) 400 Eos # (Auto) 100 Baso # (Auto) 0 Sodium 137 Potassium 3.5 Chloride 99 Carbon Dioxide 30 BUN 24 H Creatinine 0.92 Estimated GFR 59.4 L BUN/Creatinine Ratio 26.1 H Glucose 130 H Calcium 9.8 Magnesium 1.6 Total Bilirubin 5.4 H AST 336 H ALT 263 H Alkaline Phosphatase 204 H Troponin I < 0.012 Total Protein 7.8 Albumin 4.5 Globulin 3.3 Albumin/Globulin Ratio 1.4 Lipase 171 Urine Color Urine Appearance Urine pH Ur Specific [place] Urine Protein Urine Glucose (UA) Urine Ketones Urine Occult Blood Urine Nitrate Urine Bilirubin Ur Bilirubin Confirm Urine Urobilinogen Ur Leukocyte Esterase Urine RBC Urine WBC Ur Squamous Epith Cells Urine Bacteria Ur Culture Indicated? SARS-CoV-2 (PCR) 09/04/21 09/04/21 09:28 09:45 WBC RBC Hgb Hct MCV MCH MCHC RDW Plt Count Neut % (Auto) Lymph % (Auto) [place] % (Auto) Eos % (Auto) Baso % (Auto) Neut # (Auto) Lymph # (Auto) [place] # (Auto) Eos # (Auto) Baso # (Auto) Sodium Potassium Chloride Carbon Dioxide BUN Creatinine Estimated GFR BUN/Creatinine Ratio Glucose Calcium Magnesium Total Bilirubin AST ALT Alkaline Phosphatase Troponin I Total Protein Albumin Globulin Albumin/Globulin Ratio Lipase Urine Color Shruti Urine Appearance Sl cloudy Urine pH 5.5 Ur Specific [place] 1.020 Urine Protein 1+ H Urine Glucose (UA) Trace H Urine Ketones 1+ H Urine Occult Blood 3+ H Urine Nitrate Negative Urine Bilirubin 2+ H Ur Bilirubin Confirm Positive H Urine Urobilinogen 2.0 H Ur Leukocyte Esterase Trace H Urine RBC 5-10/hpf H Urine WBC 1-5/hpf Ur Squamous Epith Cells 5-10 /hpf H Urine Bacteria Few (2-10) H Ur Culture Indicated? Cult not indicated SARS-CoV-2 (PCR) Negative Assessment & Plan Assessment and plan (1) Acute cholecystitis: Status: Acute Assessment & Plan narrative: 75 y.o woman with acute cholecystitis hx of Annamaria and ITP. -Laparoscopic cholecystectomy Reviewed labs and imaging (US, CT, and MRCP). Cholelithiasis with wall thickening no common duct stone, total bilirubin noted at 5.4. Discussed management options including operative and non operative. Recomended that we proceed with laparoscopic cholecystectomy to which she agrees. Technical detai ls of operation discussed. Operative risks including bleeding, infection, damage to surrounding structures, conversion to open. Questions have been answered and she is in agreement with this plan. Time Spent With Patient Critical Care time: I spent a total of [] minutes of critical care time on this patient's care today; this time is exclusive of procedural time.
[2021-09-04] MEDS: LACTATED RINGERS 1,000 ML 42 ML IV (17:32)
[2021-09-04] MEDS: PIPERACILLIN/TAZO 3.375 GM in SODIUM CHLORIDE 0.9% 100 ML 25 ML IV (17:35)
--- NOTE | 2021-09-04 17:59 | SUR.OPER ---
Supine on padded OR bed, head on pillow, arms secured on padded arm boards at <90 degrees abduction, legs uncrossed, safety belt at thigh, tape over blanket over lower legs.
[2021-09-04] MEDS: BUPIVACAINE 0.5% (PF) VIAL 30 ML INJ (18:07)
--- NOTE | 2021-09-04 21:03 | P.OP_ITS ---
Operative Date/Time/Diagnoses Date of procedure: 09/04/21 Time of procedure: 21:03 Pre-op diagnosis: Acute cholecystitis Idiopathic thrombocytopenic purpura Post-op diagnosis: other (Acute cholecystitis, Idiopathic thrombocytopenic purpura, Acute blood loss anemia) Procedure & Clinicians Procedure: Laparoscopic to open cholecystectomy Same procedure as scheduled: Yes Indications: 75 y.o woman presents with acute cholecystitis Surgeon: Sudheer Rivera General Laborer: Terry Pantoja Anesthesia Type: General Operative Notes Findings: Acute cholecystitis 2.0 L blood loss from venous structure within the liver bed Specimen(s): other (Gallbladder) Blood products transfused: packed red blood cells (4 units) Procedure in detail: Patient was brought to the operating room placed supine on the table bilateral lower extremity compression devices were applied. General anesthesia was induced she was intubated with an endotracheal tube. She she was prepped and draped sterile fashion. She received antibiotics prior to skin incision. An infraumbilical incision was made the subcutaneous tissue was divided the fascia was grasped elevated and sharply incised the abdomen was entered atraumatically. The gallbladder was markedly distended and consistent with acute cholecystitis. 5 mm working ports were placed in the right upper quadrant x2. 11 mm port was placed high in the epigastrium. The gallbladder was percutaneously drained to facilitate its manipulation. The gallbladder was grasped by the fundus and retracted over the liver and retracted laterally by the infundibulum. Using electrocautery the lateral plane between the gallbladder and the liver was opened towards the fundus. The gallbladder was then retracted laterally and the medial plane was developed in the same manner. With the gallbladder mobilized the bottom of the cystic plate was visualized. The hepatocystic triangle was meticulosly skeletonized from both the front and the back. Only two structures were then clearly seen entering the gallbladder the cystic duct and the cystic artery. With the critical view of safety fully established the cystic duct was clipped twice proximally and once distally using the 5 mm Weck hemo clip applied under direct visualization and then sharply divided. The cystic artery was divided in the same fashion. The gallbladder was removed from the liver bed using electro cautery. In the course of removing the gallbladder from the liver bed there was venous bleeding from the liver. It was not pulsatile but it was continuous. I held direct compression for 10 min twice without success. Surgicel and electrocautery were not successful either. She received desmopressin dexamethasone and TXA which did not significantly improve control of bleeding. I called my partner for assistance. Subcostal incision was made the fascia was incised the abdomen opened and the liver was packed. With a combination of direct pressure and Flowseal the hemorrhage was ultimately controlled. It appears to have been a branch of a venous structure within the surface of the liver. We observed the liver bed for at least 20 min and there was no further bleeding. A 19F drain was placed into the gallbladder fossa and brought out through the right side of the abdomen. The fascia was closed in layers using #1 PDS. The subcutaneous was closed with Vircyl skin closed with john. The umbilical fascia was closed with 0 Vicryl in a [id number] fashion under direct visualization. Skin incisions were irrigated and closed with 4-0 Monocryl. 30 ml of 0.25% bupivacaine was infiltrated into the subcutaneous tissue of the incisions. The wounds were sealed with Dermabond. Patient emerged from anesthesia was extubated and transferred to ICU in stable condition. She received 4 units of PRBS in total. The sponge and instrument count at the end of the operation was correct. Post-operative Condition: stable Disposition: ICU
[2021-09-04] MEDS: ONDANSETRON 4 MG/2 ML INJ IV (21:20)
[2021-09-04] MEDS: fentaNYL 100 MCG/2 ML INJ IV ×2 (21:20→21:38)
[2021-09-04] MEDS: SODIUM CHLORIDE 0.9% 1,000 ML 100 ML IV (21:25)
--- NOTE | 2021-09-04 21:47 | PC.NURSE ---
2100 - PATIENT ARRIVED FROM OR TO ICU BED 226 LYING SUPINE ON BED WITH TRANSPORT MONITOR ON AND NORMAL SALINE INFUSING AT 100 ML/HR. PATIENT IS DROWSY AND COMPLAINING OF PAIN AND NAUSEA UPON ARRIVAL TO UNIT. VSS, S1/S2 NOTED. BILATERAL PERIPHERAL PULSES PRESENT X4 EXTREMITIES. PATIENT PLACED ON 15L O2 VIA NRB UPON ARRIVAL. INCISION TO UPPER RIGHT QUADRANT. DRESSING INTACT WITH SLIGHT BLOODY DRAINAGE NOTED. CHRISTINA DRAIN PRESENT WITH 25ML BLOODY DRAINAGE. GRULLON PRESENT WITH DARK PATIENCE URINE. GRULLON IS STAT LOCKED. 20G PIV TO LEFT WRIST WITH NORMAL SALINE RUNNING, 20G PIV TO RIGHT HAND SALINE LOCKED.
--- NOTE | 2021-09-04 21:52 | SUR.PHASEI ---
2104 Patient transferred to ICU bed 226 in bed after general anesthesia on transport monitor with Dr Delgado and this RN. Pt breathing unassisted on room air. Pt responding to voice, taking deep breaths. SBAR report at bedside to Minal FARIAS. 2139 Dr Rivera in room. Updated on patient Vital Signs. Small amount of bleeding to right side of incision, reinforced with 4x4 and silk tape. CHRISTINA drainage viewed by MD and clear risa urine in ahumada. No new orders at this time.
[2021-09-04 21:55] LABS: Hematocrit 42.6 % (36-46); Hemoglobin 14.6 g/dL (12.0-16.0); Mean Corpuscular HGB Conc 34.3 % (30-36); Mean Corpuscular Hemoglobin 31.4 PG (26-34); Mean Corpuscular Volume 91.5 fL (80-100); Platelet Count 60 X10^3/uL (150-400); Red Blood Cell Count 4.66 X10^6/uL (4.0-5.2); Red Cell Distribution Width 14.9 % (11.6-14.8); White Blood Cell Count 9.3 X10^3/uL (4.5-11.0)
--- NOTE | 2021-09-04 21:56 | SUR.PHASEI ---
TAR note. See anesthesia record for all blood transfusion vital signs. Unit #1 and unit #[address] Rivera uncross matched by Dr Delgado with verification by Dr Delgado and this RN. Unit #3 and unit #4 cross-matched and given by Dr Delgado and verfied by this RN with Dr Delgado. See TAR record for times. All blood maintained in blood bank cooler until given and given as taken out of cooler.
[2021-09-04 22:01] LABS: Alanine Aminotransferase 242 IU/L (<35); Albumin 2.7 g/dL (3.5-5.0); Albumin Globulin Ratio 1.1 (1.0-2.8); Alkaline Phosphatase 108 U/L (38-126); Aspartate Aminotransferase 320 IU/L (14-36); BUN Creatinine Ratio 22.2 (6-22); Bilirubin Total 6.6 mg/dL (0.2-1.3); Blood Urea Nitrogen 16 mg/dL (7-17); Calcium 9.3 mg/dL (8.4-10.2); Carbon Dioxide 19 mmol/L (22-32); Chloride 110 mmol/L (98-107); Estimated Glomerular Filt Rate > 60.0 mL/min (>60); Globulin 2.4 g/dL (1.7-4.1); Glucose 173 mg/dL (80-110); Potassium 3.8 mmol/L (3.4-5.1); Sodium 137 mmol/L (137-145); Total Protein 5.1 g/dL (6.3-8.2)
[2021-09-04 22:02] LABS: HEMOLYSIS 51 (0-50)
[2021-09-04 22:03] LABS: Add Manual Diff / Slide Review YES
--- NOTE | 2021-09-04 22:18 | PC.NURSE ---
blood pressure 92/50 MAP 65. Bolus 500 ml NS. notified md Rivera. MD agreed with bolus of 500 ml, and recommended increasing maintenance fluid rate to 150 ml/hr after 500 ml bolus.
--- NOTE | 2021-09-04 22:20 | SUR.PHASEI ---
2220 Patient transferred our of PACU phase I. See charting by Minal FARIAS.
[2021-09-04] MEDS: HYDROMORPHONE 0.5 MG INJ IV (22:34)
[2021-09-04 22:46] LABS: Neutrophils Absolute Manual 8463 /uL (3000-5900); Total Cells Counted 100
[2021-09-04 22:47] LABS: Anisocytosis 1+
[2021-09-04] MEDS: LACTATED RINGERS 500 ML 1000 ML IV (23:30)
[2021-09-04] MEDS: OXYCODONE/ACETAMINOPHEN 5/325 TABLET 1 TAB PO (23:40)
--- NOTE | 2021-09-04 23:40 | PM.CN.EICU ---
History of Present Illness Consult details Chief complaint: Poss Cardiac issues- sent by [facility] EMT's :: This patient was seen via real time interactive two-way audiovisual telecommunication. 75 y.o woman with PMH hypertension, ITP, surgically removed thyroid on replacement, scoliosis with left hip pain, and h/o of Annamaria fundoplication was adnitted 09/04/21 with acute cholecystitis. Patient went to OR for Laparoscopic Cholecystectomy that was converted to Open Laparotomy Cholecystectomy complicated by Venous liver bleed with ESBL of 2L. Patient got 4 u of PRBC. Pt. Arrived in ICU extubated and with BP initially of 100s/50's. It dipped down to 80-90s/50s. HR 70's. I was called for consult. I ordered for LR 500 cc bolus and BP improved to 120/70s. [facility] Medical History Arthritis Atrophic vaginitis Benign microscopic hematuria Cystocele History of skin cancer Hypertension (01/05/15) Hypothyroidism (01/05/15) Inflammatory bowel disease Rectocele Recurrent UTI Scar of conjunctiva of right eye Scoliosis Screening for breast cancer Surgical History H/O thyroidectomy History of hip replacement History of repair of hiatal hernia Status post glaucoma surgery Status post Annamaria fundoplication Family History Father Coronary artery disease Gout Hypertension Social History marital status: unmarried,single number of children: 2 household members: significant other Smoking Status: Never smoker alcohol intake: current caffeine: Yes Current Medications Current Medications Medications: Home Medications chlorthalidone 25 mg tablet 25 mg PO QAM #90 tab 02/13/17 [Rx Confirmed 09/04/21] irbesartan 150 mg tablet 150 mg PO QAM #90 tab 02/13/17 [Rx Confirmed 09/04/21] sertraline 100 mg tablet 100 mg PO QAM #90 tab 02/13/17 [Rx Confirmed 09/04/21] levothyroxine 112 mcg tablet 112 mcg PO QAM 04/19/21 [History Confirmed 09/04/21] oxycodone-acetaminophen 5 mg-325 mg tablet 2 tab PO Q4H PRN #30 tab 07/11/21 [Rx Confirmed 09/04/21] estradiol 1 g VAGINAL 2XW 09/04/21 [History Confirmed 09/04/21] netarsudil 0.02 %-latanoprost 0.005 % eye drops ([place]) 1 drp OPHTHALMIC (EYE) QAM 09/04/21 [History Confirmed 09/04/21] simvastatin 40 mg tablet 40 mg PO DAILY 09/04/21 [History Confirmed 09/04/21] vitamin B complex (B Complex-Vitamin B12) 1 tab PO QAM 09/04/21 [History Confirmed 09/04/21] Visit Medications (administered) Generic Name Dose Route Start Last Admin Trade Name Freq PRN Reason Stop Dose Admin Fentanyl 0 mcg 09/04/21 18:09 09/04/21 21:38 Fentanyl 100 Mcg/2 Ml Inj IV 100 mcg Q5M PRN Administration Pain, Moderate (4-6) Hydromorphone HCl 0.5 mg 09/04/21 20:55 09/04/21 22:34 Hydromorphone 0.5 Mg Inj IV 0.5 mg Q1H PRN Administration Pain, Moderate (4-6) Piperacillin Sod/Tazobactam 100 mls @ 25 mls/hr 09/04/21 17:30 09/04/21 17:35 Sod 3.375 gm/ Sodium Chloride IV 25 mls/hr Q8H ZORAIDA Administration Ondansetron HCl 4 mg 09/04/21 18:09 09/04/21 21:20 Ondansetron 4 Mg/2 Ml Inj IV 4 mg NOW PRN Administration Nausea And Vomiting Exam Vital Signs (past 8 hours): - 09/04/21 16:41 09/04/21 17:08 09/04/21 17:09 Temperature Pulse Rate 81 82 85 Respiratory Rate Blood Pressure 147/70 H 149/67 H 149/67 H Pulse Oximetry 97 97 97 09/04/21 17:20 09/04/21 21:00 09/04/21 21:05 Temperature 97.7 F 97.4 F L Pulse Rate 80 84 83 Respiratory Rate 16 20 25 H Blood Pressure 137/79 117/58 L Pulse Oximetry 97 94 94 09/04/21 21:18 09/04/21 21:30 12/06/21 21:36 Temperature 95.2 F L 95.7 F L Pulse Rate 70 74 73 Respiratory Rate 15 14 13 Blood Pressure 103/59 L 103/59 L Pulse Oximetry 100 99 94 09/04/21 22:00 09/04/21 22:02 09/04/21 22:10 Temperature 95.7 F L Pulse Rate 72 71 75 Respiratory Rate 15 14 14 Blood Pressure 92/52 L 92/50 L 92/50 L Pulse Oximetry 100 100 100 09/04/21 22:15 Temperature Pulse Rate 71 Respiratory Rate 16 Blood Pressure 102/55 L Pulse Oximetry 99 Oxygen Delivery Method Non -Rebreather Oxygen Flow Rate 15 Objective Labs Result Diagrams: 09/04/21 21:25 09/04/21 21:35 Labs: Laboratory Results - last 24 hr 09/04/21 09/04/21 09/04/21 08:20 08:20 08:20 WBC 11.3 H RBC 4.10 Hgb 13.6 Hct 39.9 MCV 97.3 MCH 33.1 MCHC 34.0 RDW 13.4 Plt Count 103 L Neut % (Auto) 93.3 H Lymph % (Auto) 2.4 L [place] % (Auto) 3.3 Eos % (Auto) 0.8 L Baso % (Auto) 0.2 Neut # (Auto) 35645 H Lymph # (Auto) 300 L [place] # (Auto) 400 Eos # (Auto) 100 Baso # (Auto) 0 Total Counted Seg Neutrophils % Band Neutrophils % Lymphocytes % (Manual) Monocytes % (Manual) Basophils % (Manual) Neutrophils # (Manual) RBC Morphology Anisocytosis Sodium 137 Potassium 3.5 Chloride 99 Carbon Dioxide 30 BUN 24 H Creatinine 0.92 Estimated GFR 59.4 L BUN/Creatinine Ratio 26.1 H Glucose 130 H Calcium 9.8 Magnesium 1.6 Total Bilirubin 5.4 H AST 336 H ALT 263 H Alkaline Phosphatase 204 H Troponin I < 0.012 Total Protein 7.8 Albumin 4.5 Globulin 3.3 Albumin/Globulin Ratio 1.4 Lipase 171 Urine Color Urine Appearance Urine pH Ur Specific [place] Urine Protein Urine Glucose (UA) Urine Ketones Urine Occult Blood Urine Nitrate Urine Bilirubin Ur Bilirubin Confirm Urine Urobilinogen Ur Leukocyte Esterase Urine RBC Urine WBC Ur Squamous Epith Cells Urine Bacteria Ur Culture Indicated? SARS-CoV-2 (PCR) Blood Type Antibody Screen Crossmatch 09/04/21 09/04/21 09/04/21 09:28 09:45 19:07 WBC RBC Hgb Hct MCV MCH MCHC RDW Plt Count Neut % (Auto) Lymph % (Auto) [place] % (Auto) Eos % (Auto) Baso % (Auto) Neut # (Auto) Lymph # (Auto) [place] # (Auto) Eos # (Auto) Baso # (Auto) Total Counted Seg Neutrophils % Band Neutrophils % Lymphocytes % (Manual) Monocytes % (Manual) Basophils % (Manual) Neutrophils # (Manual) RBC Morphology Anisocytosis Sodium Potassium Chloride Carbon Dioxide BUN Creatinine Estimated GFR BUN/Creatinine Ratio Glucose Calcium Magnesium Total Bilirubin AST ALT Alkaline Phosphatase Troponin I Total Protein Albumin Globulin Albumin/Globulin Ratio Lipase Urine Color Shruti Urine Appearance Sl cloudy Urine pH 5.5 Ur Specific [place] 1.020 Urine Protein 1+ H Urine Glucose (UA) Trace H Urine Ketones 1+ H Urine Occult Blood 3+ H Urine Nitrate Negative Urine Bilirubin 2+ H Ur Bilirubin Confirm Positive H Urine Urobilinogen 2.0 H Ur Leukocyte Esterase Trace H Urine RBC 5-10/hpf H Urine WBC 1-5/hpf Ur Squamous Epith Cells 5-10 /hpf H Urine Bacteria Few (2-10) H Ur Culture Indicated? Cult not indicated SARS-CoV-2 (PCR) Negative Blood Type AB Positive Antibody Screen Negative Crossmatch See Detail 09/04/21 09/04/21 21:25 21:35 WBC 9.3 RBC 4.66 Hgb 14.6 Hct 42.6 MCV 91.5 D MCH 31.4 MCHC 34.3 RDW 14.9 H Plt Count 60 L Neut % (Auto) Not Reportable Lymph % (Auto) Not Reportable [place] % (Auto) Not Reportable Eos % (Auto) Not Reportable Baso % (Auto) Not Reportable Neut # (Auto) Lymph # (Auto) Not Reportable [place] # (Auto) Not Reportable Eos # (Auto) Baso # (Auto) Not Reportable Total Counted 100 Seg Neutrophils % 68.0 Band Neutrophils % 23.0 H Lymphocytes % (Manual) 3.0 L Monocytes % (Manual) 5.0 Basophils % (Manual) 1.0 Neutrophils # (Manual) 8463 H RBC Morphology See below Anisocytosis 1+ H Sodium 137 Potassium 3.8 Chloride 110 H Carbon Dioxide 19 L BUN 16 Creatinine 0.72 Estimated GFR > 60.0 BUN/Creatinine Ratio 22.2 H Glucose 173 H Calcium 9.3 Magnesium Total Bilirubin 6.6 H AST 320 H ALT 242 H Alkaline Phosphatase 108 D Troponin I Total Protein 5.1 L Albumin 2.7 L Globulin 2.4 Albumin/Globulin Ratio 1.1 Lipase Urine Color Urine Appearance Urine pH Ur Specific [place] Urine Protein Urine Glucose (UA) Urine Ketones Urine Occult Blood Urine Nitrate Urine Bilirubin Ur Bilirubin Confirm Urine Urobilinogen Ur Leukocyte Esterase Urine RBC Urine WBC Ur Squamous Epith Cells Urine Bacteria Ur Culture Indicated? SARS-CoV-2 (PCR) Blood Type Antibody Screen Crossmatch Assessment & Plan Assessment & Plan narrative: Assessment Acute Cholecystitis s/p Open Lap Cholecystectomy Complicated by liver venous bleed Acute on chronic Thrombocytopenia secondary to ITP and transfusion dilution Recommendations -monitor CBC q6h till it stabilizes -check INR and if elevated consider giving FFP if hgb continues to trend down -if patient shows signs of continued blood loss and platelets are are also trending down to <50, recommend platelet transfusion (if no platelet transfusion available at [facility] then consider transfer to hospital that has platelets available) -check chemistries and replaced electrolytes as needed -given hyperchloremic metabolic acidosis, switch from NS to LR maintenance fluid -SCDs, hold off DVT chemoprophylaxis still no further signs of active bleeding CCT spent 55 min Time Spent With Patient Critical Care time: I spent a total of [] minutes of critical care time on this patient's care today; this time is exclusive of procedural time.
[2021-09-04] MEDS: SERTRALINE 50 MG TABLET 100 MG PO (23:59)
[2021-09-05] VITALS (32 sets, daily range): BP systolic 90–122; BP diastolic 51–71; PULSE 74–99; RESP 14–27; TEMP 35.8–37; O2SAT 91–100
[2021-09-05] MEDS: OXYCODONE/ACETAMINOPHEN 5/325 TABLET 1 TAB PO (00:09)
[2021-09-05 00:18] LABS: Hemoglobin 13.8 g/dL (12.0-16.0); Mean Corpuscular HGB Conc 33.7 % (30-36); Mean Corpuscular Hemoglobin 31.2 PG (26-34); Mean Corpuscular Volume 92.6 fL (80-100); Platelet Count 54 X10^3/uL (150-400); Red Blood Cell Count 4.43 X10^6/uL (4.0-5.2); Red Cell Distribution Width 15.3 % (11.6-14.8); White Blood Cell Count 13.7 X10^3/uL (4.5-11.0)
[2021-09-05 00:20] LABS: INR 1.3 (0.9-1.3); Prothrombin Time 14.7 SECONDS (10.1-12.7)
[2021-09-05 00:22] LABS: PTT Partial Thromboplastin Tim 25 SECONDS (26.4-36.2)
[2021-09-05] MEDS: LACTATED RINGERS 1,000 ML 100 ML IV ×2 (00:39→10:17)
[2021-09-05] MEDS: PIPERACILLIN/TAZO 3.375 GM in SODIUM CHLORIDE 0.9% 100 ML 25 ML IV ×3 (03:44→16:32)
[2021-09-05] MEDS: ACETAMINOPHEN 325 MG TABLET 650 MG PO (07:02)
[2021-09-05 07:55] LABS: Add Manual Diff / Slide Review NO; Basophils Absolute Auto 0 /uL (0-100); Basophils Percent Auto 0.1 % (0-2); Eosinophils Absolute Auto 0 /uL (0-450); Hematocrit 38.4 % (36-46); Lymphocytes Absolute Auto 300 /uL (1100-4500); Lymphocytes Percent Auto 1.6 % (25-40); Mean Corpuscular HGB Conc 33.7 % (30-36); Mean Corpuscular Hemoglobin 31.2 PG (26-34); Mean Corpuscular Volume 92.4 fL (80-100); Monocytes Absolute Auto 800 /uL (0-900); Monocytes Percent Auto 4.5 % (3-14); Neutrophils Absolute Auto 16000 /uL (1500-7000); Neutrophils Percent Auto 93.8 % (50-75); Platelet Count 58 X10^3/uL (150-400); Red Blood Cell Count 4.16 X10^6/uL (4.0-5.2); Red Cell Distribution Width 15.4 % (11.6-14.8); White Blood Cell Count 17.1 X10^3/uL (4.5-11.0)
[2021-09-05] MEDS: LEVOTHYROXINE 112 MCG TABLET PO (08:00)
[2021-09-05 08:07] LABS: Alanine Aminotransferase 214 IU/L (<35); Albumin 2.6 g/dL (3.5-5.0); Albumin Globulin Ratio 1.1 (1.0-2.8); Alkaline Phosphatase 85 U/L (38-126); Aspartate Aminotransferase 222 IU/L (14-36); BUN Creatinine Ratio 21.1 (6-22); Bilirubin Total 11.3 mg/dL (0.2-1.3); Blood Urea Nitrogen 19 mg/dL (7-17); Calcium 8.7 mg/dL (8.4-10.2); Carbon Dioxide 22 mmol/L (22-32); Chloride 107 mmol/L (98-107); Estimated Glomerular Filt Rate > 60.0 mL/min (>60); Globulin 2.3 g/dL (1.7-4.1); Glucose 160 mg/dL (80-110); HEMOLYSIS < 15 (0-50); Potassium 3.6 mmol/L (3.4-5.1); Sodium 137 mmol/L (137-145); Total Protein 4.9 g/dL (6.3-8.2)
[2021-09-05] MEDS: SERTRALINE 50 MG TABLET 100 MG PO (08:31)
[2021-09-05] MEDS: BRIMONIDINE 0.2% OPHTH 5 ML 1 DROPS EYE-BOTH ×2 (08:31→21:46)
[2021-09-05] MEDS: DORZOLAMIDE/TIMOLOL OPHTH 10 ML 1 DROPS EYE-BOTH ×2 (08:31→21:46)
[2021-09-05] MEDS: OXYCODONE IR 5 MG TABLET PO ×2 (08:32→16:12)
[2021-09-05] MEDS: CALCIUM CARBONATE 500 MG TAB 1000 MG PO (08:42)
--- NOTE | 2021-09-05 09:41 | P.PN_ITS ---
Exam Vital Signs (past 8 hours): - 09/05/21 02:00 09/05/21 02:30 09/05/21 03:00 Temperature Pulse Rate 80 79 80 Respiratory Rate 18 18 19 Blood Pressure 114/64 117/71 Pulse Oximetry 99 98 99 09/05/21 03:30 09/05/21 04:00 09/05/21 04:30 Temperature 96.5 F L Pulse Rate 80 81 84 Respiratory Rate 19 18 17 Blood Pressure 111/71 Pulse Oximetry 99 98 91 09/05/21 05:00 09/05/21 05:30 09/05/21 06:00 Temperature Pulse Rate 85 85 86 Respiratory Rate 17 18 25 H Blood Pressure 95/55 L Pulse Oximetry 98 97 98 09/05/21 06:01 09/05/21 06:30 09/05/21 07:00 Temperature 97.7 F Pulse Rate 85 88 89 Respiratory Rate 19 18 19 Blood Pressure 91/55 L 94/55 L Pulse Oximetry 98 98 98 Oxygen Delivery Method Nasal Cannula Oxygen Flow Rate 2 Objective Labs Result Diagrams: 09/05/21 07:40 09/05/21 07:40 Labs: Laboratory Results - last 24 hr 09/04/21 09/04/21 09/04/21 09:28 09:45 19:07 WBC RBC Hgb Hct MCV MCH MCHC RDW Plt Count Neut % (Auto) Lymph % (Auto) [place] % (Auto) Eos % (Auto) Baso % (Auto) Neut # (Auto) Lymph # (Auto) [place] # (Auto) Eos # (Auto) Baso # (Auto) Total Counted Seg Neutrophils % Band Neutrophils % Lymphocytes % (Manual) Monocytes % (Manual) Basophils % (Manual) Neutrophils # (Manual) RBC Morphology Anisocytosis PT INR APTT Sodium Potassium Chloride Carbon Dioxide BUN Creatinine Estimated GFR BUN/Creatinine Ratio Glucose Calcium Total Bilirubin AST ALT Alkaline Phosphatase Total Protein Albumin Globulin Albumin/Globulin Ratio Urine Color Shruti Urine Appearance Sl cloudy Urine pH 5.5 Ur Specific [place] 1.020 Urine Protein 1+ H Urine Glucose (UA) Trace H Urine Ketones 1+ H Urine Occult Blood 3+ H Urine Nitrate Negative Urine Bilirubin 2+ H Ur Bilirubin Confirm Positive H Urine Urobilinogen 2.0 H Ur Leukocyte Esterase Trace H Urine RBC 5-10/hpf H Urine WBC 1-5/hpf Ur Squamous Epith Cells 5-10 /hpf H Urine Bacteria Few (2-10) H Ur Culture Indicated? Cult not indicated Nasal Screen MRSA (PCR) SARS-CoV-2 (PCR) Negative Blood Type AB Positive Antibody Screen Negative Crossmatch See Detail 09/04/21 09/04/21 09/04/21 21:25 21:35 23:59 WBC 9.3 RBC 4.66 Hgb 14.6 Hct 42.6 MCV 91.5 D MCH 31.4 MCHC 34.3 RDW 14.9 H Plt Count 60 L Neut % (Auto) Not Reportable Lymph % (Auto) Not Reportable [place] % (Auto) Not Reportable Eos % (Auto) Not Reportable Baso % (Auto) Not Reportable Neut # (Auto) Lymph # (Auto) Not Reportable [place] # (Auto) Not Reportable Eos # (Auto) Baso # (Auto) Not Reportable Total Counted 100 Seg Neutrophils % 68.0 Band Neutrophils % 23.0 H Lymphocytes % (Manual) 3.0 L Monocytes % (Manual) 5.0 Basophils % (Manual) 1.0 Neutrophils # (Manual) 8463 H RBC Morphology See below Anisocytosis 1+ H PT 14.7 H INR 1.3 APTT 25 L Sodium 137 Potassium 3.8 Chloride 110 H Carbon Dioxide 19 L BUN 16 Creatinine 0.72 Estimated GFR > 60.0 BUN/Creatinine Ratio 22.2 H Glucose 173 H Calcium 9.3 Total Bilirubin 6.6 H AST 320 H ALT 242 H Alkaline Phosphatase 108 D Total Protein 5.1 L Albumin 2.7 L Globulin 2.4 Albumin/Globulin Ratio 1.1 Urine Color Urine Appearance Urine pH Ur Specific [place] Urine Protein Urine Glucose (UA) Urine Ketones Urine Occult Blood Urine Nitrate Urine Bilirubin Ur Bilirubin Confirm Urine Urobilinogen Ur Leukocyte Esterase Urine RBC Urine WBC Ur Squamous Epith Cells Urine Bacteria Ur Culture Indicated? Nasal Screen MRSA (PCR) SARS-CoV-2 (PCR) Blood Type Antibody Screen Crossmatch 09/04/21 09/04/21 09/05/21 23:59 23:59 07:40 WBC 13.7 H 17.1 H RBC 4.43 4.16 Hgb 13.8 13.0 Hct 41.0 38.4 MCV 92.6 92.4 MCH 31.2 31.2 MCHC 33.7 33.7 RDW 15.3 H 15.4 H Plt Count 54 L 58 L Neut % (Auto) 93.8 H Lymph % (Auto) 1.6 L [place] % (Auto) 4.5 Eos % (Auto) 0.0 L Baso % (Auto) 0.1 Neut # (Auto) 53283 H Lymph # (Auto) 300 L [place] # (Auto) 800 Eos # (Auto) 0 Baso # (Auto) 0 Total Counted Seg Neutrophils % Band Neutrophils % Lymphocytes % (Manual) Monocytes % (Manual) Basophils % (Manual) Neutrophils # (Manual) RBC Morphology Anisocytosis PT INR APTT Sodium Potassium Chloride Carbon Dioxide BUN Creatinine Estimated GFR BUN/Creatinine Ratio Glucose Calcium Total Bilirubin AST ALT Alkaline Phosphatase Total Protein Albumin Globulin Albumin/Globulin Ratio Urine Color Urine Appearance Urine pH Ur Specific [place] Urine Protein Urine Glucose (UA) Urine Ketones Urine Occult Blood Urine Nitrate Urine Bilirubin Ur Bilirubin Confirm Urine Urobilinogen Ur Leukocyte Esterase Urine RBC Urine WBC Ur Squamous Epith Cells Urine Bacteria Ur Culture Indicated? Nasal Screen MRSA (PCR) Negative for mrsa SARS-CoV-2 (PCR) Blood Type Antibody Screen Crossmatch 09/05/21 07:40 WBC RBC Hgb Hct MCV MCH MCHC RDW Plt Count Neut % (Auto) Lymph % (Auto) [place] % (Auto) Eos % (Auto) Baso % (Auto) Neut # (Auto) Lymph # (Auto) [place] # (Auto) Eos # (Auto) Baso # (Auto) Total Counted Seg Neutrophils % Band Neutrophils % Lymphocytes % (Manual) Monocytes % (Manual) Basophils % (Manual) Neutrophils # (Manual) RBC Morphology Anisocytosis PT INR APTT Sodium 137 Potassium 3.6 Chloride 107 Carbon Dioxide 22 BUN 19 H Creatinine 0.90 Estimated GFR > 60.0 BUN/Creatinine Ratio 21.1 Glucose 160 H Calcium 8.7 Total Bilirubin 11.3 H AST 222 H ALT 214 H Alkaline Phosphatase 85 Total Protein 4.9 L Albumin 2.6 L Globulin 2.3 Albumin/Globulin Ratio 1.1 Urine Color Urine Appearance Urine pH Ur Specific [place] Urine Protein Urine Glucose (UA) Urine Ketones Urine Occult Blood Urine Nitrate Urine Bilirubin Ur Bilirubin Confirm Urine Urobilinogen Ur Leukocyte Esterase Urine RBC Urine WBC Ur Squamous Epith Cells Urine Bacteria Ur Culture Indicated? Nasal Screen MRSA (PCR) SARS-CoV-2 (PCR) Blood Type Antibody Screen Crossmatch [facility] Medical History Arthritis Atrophic vaginitis Benign microscopic hematuria Cystocele History of skin cancer Hypertension (01/05/15) Hypothyroidism (01/05/15) Inflammatory bowel disease Rectocele Recurrent UTI Scar of conjunctiva of right eye Scoliosis Screening for breast cancer Surgical History H/O thyroidectomy History of hip replacement History of repair of hiatal hernia Status post glaucoma surgery Status post Annamaria fundoplication Family History Father Coronary artery disease Gout Hypertension Social History marital status: unmarried,single number of children: 2 household members: significant other Smoking Status: Never smoker alcohol intake: current caffeine: Yes Assessment & Plan Post-op Postoperative Procedures: Procedures Operation Date: 09/04/21 17:45 Actual Procedure Side Surgeon p Laparoscopic Cholecystectomy CONVERTED TO OPEN TO CONTROL BLEEDING Not Applicable Sudheer Rivera MD Postoperative status narrative: 75 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 -Acute blood loss anemia. Hct stable sp transfusion of 4 units PRBCs last night. Intra abdominal drain and labs reassuring no significant ongoing bleeding. Recheck CBC this afternoon. -Thrombocytopenia. Acute on chronic secondary to acute blood loss and ITP. Appreciate ICU consult will transfuse plt if <50k -Hyperbilirubinemia. Total Bilirubin 11 today was 5.5 yesterday there was no evidence of common bile duct stone. elevation in bilirubin likely secondary to hemorrhage. Will trend. -Diet as tolerated -PT/OT consult -SCDs only chemical DVT prophylaxis contra indicated Time Spent With Patient Time with patient: 25 - 35 minutes Quality VTE Deep Vein Thrombosis/Pulmonary Embolism Present on Admission: No
--- NOTE | 2021-09-05 10:50 | P.TELICUPN_ITS ---
Subjective Subjective :: This patient was seen via real time interactive two-way audiovisual telecommunication. labs reviewed- bili trending up though LFt trending down. Toelrating liquid diet. pain controlled. map adequate though sbp is lower than baselione Current Medications Current Medications Medications: Home Medications chlorthalidone 25 mg tablet 25 mg PO QAM #90 tab 02/13/17 [Rx Confirmed 09/04/21] irbesartan 150 mg tablet 150 mg PO QAM #90 tab 02/13/17 [Rx Confirmed 09/04/21] sertraline 100 mg tablet 100 mg PO QAM #90 tab 02/13/17 [Rx Confirmed 09/04/21] levothyroxine 112 mcg tablet 112 mcg PO QAM 04/19/21 [History Confirmed 09/04/21] oxycodone-acetaminophen 5 mg-325 mg tablet 2 tab PO Q4H PRN #30 tab 07/11/21 [Rx Confirmed 09/04/21] estradiol 1 g VAGINAL 2XW 09/04/21 [History Confirmed 09/04/21] netarsudil 0.02 %-latanoprost 0.005 % eye drops ([facility]) 1 drp OPHTHALMIC (EYE) QPM 09/04/21 [History Confirmed 09/05/21] simvastatin 40 mg tablet 40 mg PO DAILY 09/04/21 [History Confirmed 09/04/21] vitamin B complex (B Complex-Vitamin B12) 1 tab PO QAM 09/04/21 [History Confirmed 09/04/21] brimonidine 0.2 % eye drops 1 drp EYE-BOTH QAM AND QPM 09/05/21 [History Confirm ed 09/05/21] dorzolamide 22.3 mg-timolol 6.8 mg/mL eye drops 1 drp EYE-BOTH QAM AND QPM 09/05/21 [History Confirmed 09/05/21] Visit Medications (administered) Generic Name Dose Route Start Last Admin Trade Name Freq PRN Reason Stop Dose Admin Acetaminophen 650 mg 09/04/21 18:00 09/05/21 07:02 Acetaminophen 325 Mg Tablet PO 650 mg Q6HR ZORAIDA Administration Brimonidine Tartrate 1 drops 09/05/21 09:00 09/05/21 08:31 Brimonidine 0.2% Ophth 5 Ml EYE-BOTH 1 drops BID ZORAIDA Administration Calcium Carbonate 1,000 mg 09/04/21 17:18 09/05/21 08:42 Calcium Carbonate 500 Mg Tab PO 1,000 mg Q4HR PRN Administration Dyspepsia Chlorthalidone 25 mg 09/04/21 22:30 09/05/21 08:34 Chlorthalidone 25 Mg Tablet PO Not Given DAILY ZORAIDA Dorzolamide/Timolol 1 drops 09/05/21 09:00 09/05/21 08:31 Dorzolamide/Timolol Ophth 10 Ml EYE-BOTH 1 drops BID ZORAIDA Administration Fentanyl 0 mcg 09/04/21 18:09 09/04/21 21:38 Fentanyl 100 Mcg/2 Ml Inj IV 100 mcg Q5M PRN Administration Pain, Moderate (4-6) Hydromorphone HCl 0.5 mg 09/04/21 20:55 09/04/21 22:34 Hydromorphone 0.5 Mg Inj IV 0.5 mg Q1H PRN Administration Pain, Moderate (4-6) Piperacillin Sod/Tazobactam 100 mls @ 25 mls/hr 09/04/21 17:30 09/05/21 09:28 Sod 3.375 gm/ Sodium Chloride IV 25 mls/hr Q8H ZORAIDA Administration Lactated Ringer's 1,000 mls @ 100 mls/hr 09/05/21 00:15 09/05/21 10:17 Lactated Ringers IV 100 mls/hr CONT ZORAIDA Administration Levothyroxine Sodium 112 mcg 09/05/21 07:00 09/05/21 08:00 Levothyroxine 112 Mcg Tablet PO 112 mcg QACBREAK ZORAIDA Administration Oxycodone HCl 5 mg 09/05/21 08:30 09/05/21 08:32 Oxycodone Ir 5 Mg Tablet PO 5 mg Q4H PRN Administration Pain, Moderate (4-6) Sertraline HCl 100 mg 09/04/21 22:30 09/05/21 08:31 Sertraline 50 Mg Tablet PO 100 mg DAILY ZORAIDA Administration Objective Labs Result Diagrams: 09/05/21 07:40 09/05/21 07:40 Labs: Laboratory Results - last 24 hr 09/04/21 09/04/21 09/04/21 09:28 09:45 19:07 WBC RBC Hgb Hct MCV MCH MCHC RDW Plt Count Neut % (Auto) Lymph % (Auto) [place] % (Auto) Eos % (Auto) Baso % (Auto) Neut # (Auto) Lymph # (Auto) [place] # (Auto) Eos # (Auto) Baso # (Auto) Total Counted Seg Neutrophils % Band Neutrophils % Lymphocytes % (Manual) Monocytes % (Manual) Basophils % (Manual) Neutrophils # (Manual) RBC Morphology Anisocytosis PT INR APTT Sodium Potassium Chloride Carbon Dioxide BUN Creatinine Estimated GFR BUN/Creatinine Ratio Glucose Calcium Total Bilirubin AST ALT Alkaline Phosphatase Total Protein Albumin Globulin Albumin/Globulin Ratio Urine Color Shruti Urine Appearance Sl cloudy Urine pH 5.5 Ur Specific [place] 1.020 Urine Protein 1+ H Urine Glucose (UA) Trace H Urine Ketones 1+ H Urine Occult Blood 3+ H Urine Nitrate Negative Urine Bilirubin 2+ H Ur Bilirubin Confirm Positive H Urine Urobilinogen 2.0 H Ur Leukocyte Esterase Trace H Urine RBC 5-10/hpf H Urine WBC 1-5/hpf Ur Squamous Epith Cells 5-10 /hpf H Urine Bacteria Few (2-10) H Ur Culture Indicated? Cult not indicated Nasal Screen MRSA (PCR) SARS-CoV-2 (PCR) Negative Blood Type AB Positive Antibody Screen Negative Crossmatch See Detail 09/04/21 09/04/21 09/04/21 21:25 21:35 23:59 WBC 9.3 RBC 4.66 Hgb 14.6 Hct 42.6 MCV 91.5 D MCH 31.4 MCHC 34.3 RDW 14.9 H Plt Count 60 L Neut % (Auto) Not Reportable Lymph % (Auto) Not Reportable [place] % (Auto) Not Reportable Eos % (Auto) Not Reportable Baso % (Auto) Not Reportable Neut # (Auto) Lymph # (Auto) Not Reportable [place] # (Auto) Not Reportable Eos # (Auto) Baso # (Auto) Not Reportable Total Counted 100 Seg Neutrophils % 68.0 Band Neutrophils % 23.0 H Lymphocytes % (Manual) 3.0 L Monocytes % (Manual) 5.0 Basophils % (Manual) 1.0 Neutrophils # (Manual) 8463 H RBC Morphology See below Anisocytosis 1+ H PT 14.7 H INR 1.3 APTT 25 L Sodium 137 Potassium 3.8 Chloride 110 H Carbon Dioxide 19 L BUN 16 Creatinine 0.72 Estimated GFR > 60.0 BUN/Creatinine Ratio 22.2 H Glucose 173 H Calcium 9.3 Total Bilirubin 6.6 H AST 320 H ALT 242 H Alkaline Phosphatase 108 D Total Protein 5.1 L Albumin 2.7 L Globulin 2.4 Albumin/Globulin Ratio 1.1 Urine Color Urine Appearance Urine pH Ur Specific [place] Urine Protein Urine Glucose (UA) Urine Ketones Urine Occult Blood Urine Nitrate Urine Bilirubin Ur Bilirubin Confirm Urine Urobilinogen Ur Leukocyte Esterase Urine RBC Urine WBC Ur Squamous Epith Cells Urine Bacteria Ur Culture Indicated? Nasal Screen MRSA (PCR) SARS-CoV-2 (PCR) Blood Type Antibody Screen Crossmatch 09/04/21 09/04/21 09/05/21 23:59 23:59 07:40 WBC 13.7 H 17.1 H RBC 4.43 4.16 Hgb 13.8 13.0 Hct 41.0 38.4 MCV 92.6 92.4 MCH 31.2 31.2 MCHC 33.7 33.7 RDW 15.3 H 15.4 H Plt Count 54 L 58 L Neut % (Auto) 93.8 H Lymph % (Auto) 1.6 L [place] % (Auto) 4.5 Eos % (Auto) 0.0 L Baso % (Auto) 0.1 Neut # (Auto) 98414 H Lymph # (Auto) 300 L [place] # (Auto) 800 Eos # (Auto) 0 Baso # (Auto) 0 Total Counted Seg Neutrophils % Band Neutrophils % Lymphocytes % (Manual) Monocytes % (Manual) Basophils % (Manual) Neutrophils # (Manual) RBC Morphology Anisocytosis PT INR APTT Sodium Potassium Chloride Carbon Dioxide BUN Creatinine Estimated GFR BUN/Creatinine Ratio Glucose Calcium Total Bilirubin AST ALT Alkaline Phosphatase Total Protein Albumin Globulin Albumin/Globulin Ratio Urine Color Urine Appearance Urine pH Ur Specific [place] Urine Protein Urine Glucose (UA) Urine Ketones Urine Occult Blood Urine Nitrate Urine Bilirubin Ur Bilirubin Confirm Urine Urobilinogen Ur Leukocyte Esterase Urine RBC Urine WBC Ur Squamous Epith Cells Urine Bacteria Ur Culture Indicated? Nasal Screen MRSA (PCR) Negative for mrsa SARS-CoV-2 (PCR) Blood Type Antibody Screen Crossmatch 09/05/21 07:40 WBC RBC Hgb Hct MCV MCH MCHC RDW Plt Count Neut % (Auto) Lymph % (Auto) [place] % (Auto) Eos % (Auto) Baso % (Auto) Neut # (Auto) Lymph # (Auto) [place] # (Auto) Eos # (Auto) Baso # (Auto) Total Counted Seg Neutrophils % Band Neutrophils % Lymphocytes % (Manual) Monocytes % (Manual) Basophils % (Manual) Neutrophils # (Manual) RBC Morphology Anisocytosis PT INR APTT Sodium 137 Potassium 3.6 Chloride 107 Carbon Dioxide 22 BUN 19 H Creatinine 0.90 Estimated GFR > 60.0 BUN/Creatinine Ratio 21.1 Glucose 160 H Calcium 8.7 Total Bilirubin 11.3 H AST 222 H ALT 214 H Alkaline Phosphatase 85 Total Protein 4.9 L Albumin 2.6 L Globulin 2.3 Albumin/Globulin Ratio 1.1 Urine Color Urine Appearance Urine pH Ur Specific [place] Urine Protein Urine Glucose (UA) Urine Ketones Urine Occult Blood Urine Nitrate Urine Bilirubin Ur Bilirubin Confirm Urine Urobilinogen Ur Leukocyte Esterase Urine RBC Urine WBC Ur Squamous Epith Cells Urine Bacteria Ur Culture Indicated? Nasal Screen MRSA (PCR) SARS-CoV-2 (PCR) Blood Type Antibody Screen Crossmatch Exam Vital Signs (past 8 hours): - 09/05/21 03:00 09/05/21 03:30 09/05/21 04:00 Temperature 96.5 F L Pulse Rate 80 80 81 Respiratory Rate 19 19 18 Blood Pressure 117/71 111/71 Pulse Oximetry 99 99 98 09/05/21 04:30 09/05/21 05:00 09/05/21 05:30 Temperature Pulse Rate 84 85 85 Respiratory Rate 17 17 18 Blood Pressure 95/55 L Pulse Oximetry 91 98 97 09/05/21 06:00 09/05/21 06:01 09/05/21 06:30 Temperature Pulse Rate 86 85 88 Respiratory Rate 25 H 19 18 Blood Pressure 91/55 L Pulse Oximetry 98 98 98 09/05/21 07:00 09/05/21 08:00 09/05/21 09:00 Temperature 97.7 F Pulse Rate 89 87 87 Respiratory Rate 19 20 19 Blood Pressure 94/55 L 120/64 116/63 Pulse Oximetry 98 98 99 09/05/21 10:00 Temperature 97.5 F L Pulse Rate 88 Respiratory Rate 15 Blood Pressure 95/56 L Pulse Oximetry 98 Oxygen Delivery Method Nasal Cannula Oxygen Flow Rate 2 Narrative Exam Narrative: surrogate for exam is primary team Quality TeleICU VTE Deep Vein Thrombosis/Pulmonary Embolism Present on Admission: No Assessment & Plan Assessment & Plan narrative: Assessment Acute Cholecystitis s/p Open Lap Cholecystectomy sepsis 2/2 to cholecystitis Complicated by liver venous bleed Acute on chronic Thrombocytopenia secondary to ITP and transfusion dilution htn hypothyroidism IBD Recommendations pain control adat trend cbc plt slowly trending up but will monitor cbc q12 hours check chemistries and replaced electrolytes as needed can conitnue LR for nowm, but would stop after 24 hours SCDs, hold off DVT chemoprophylaxis still no further signs of active bleeding on zosyn f/u cx on synthroid unclear if she takes any immunosupprants for IBD, but would hold for now regardless CCT spent 35 min Time Spent With Patient Critical Care time: I spent a total of [] minutes of critical care time on this patient's care today; this time is exclusive of procedural time.
[2021-09-05] MEDS: POTASSIUM CHLORIDE IN WATER 10 MEQ/100 ML PIGGYBACK 100 MEQ IV ×4 (11:36→16:11)
[2021-09-05 13:40] LABS: Bilirubin Direct 9.4 mg/dL (0.0-0.4)
--- NOTE | 2021-09-05 14:19 | CM.DANOTE ---
DCP/Assessment: Reviewed chart. Patient is a 75yr old female admitted to [facility] with chest pain/epigastric pain. PCP is Dr. Manning on [facility]. Primary payor is 1)Medicare 2)[facility]. Met with patient explained CM/SW role. Patient alert and oriented resting in bed with 02 at time of visit. Patient reports that she resides on [facility] with life partner/Tim. Patient indicates that she is completely I in all ADL's. Prior to hospitalization patient was going to outpatient therapy for her hip. Patient reports that she has muscular issue(s) in her hip which has been causing her to limp slightly. Patient denies any d/c planning needs at this time. Patient reports that her life partner can provide transport home when she is stable. Patient will need priority boarding to return to [place]. Patient underwent lap reuben on 09-[address] Rivera. Patient hopes to d/c within the next 24-48hrs. Patient currently on 02 which she is not on at baseline. HANDLE LATHE OPERATOR notified patient that CM team will continue to follow if needs were to arise. Patient appreciative and agreeable. P: Home when medically stable. Patient will need priority boarding to return to [facility]. RAUL Discharge Planning/Care Management CM Discharge Assessment Start: 09/05/21 14:16 Freq: Status: Active Protocol: Document 09/05/21 14:16 KJ (Rec: 09/05/21 14:[address] [facility] [id number]) Discharge Planning Assessment Assigned Supervisor Of Research Vilma Suarez MSW Contact Information Tim Ratliff (Life partner) ph# [phone] Advance Directives? No History Provided By Patient,Medical Record Prior Living Arrangements House Household Members significant other Type of transporation used prior to Drives own vehicle admit Independent with ADL's Yes Is patient alert and oriented? Yes Caregiver for Another No Barriers to Discharge No Discharge Plan Home Whiteboard Updated in Patient Room with Yes name and ext. # of Supervisor Of Research Review Status In Process Next Review Type Continued Stay Review
--- NOTE | 2021-09-05 14:30 | PT.IIE ---
Current Diagnoses Acute cholecystitis (09/04/21) Surgery Performed Operation Date: 09/04/21 17:45 Actual Procedures p Laparoscopic Cholecystectomy CONVERTED TO OPEN TO CONTROL BLEEDING(Not Applicable) - Sudheer Rivera MD Medical History (Last Reviewed 09/04/21 @ 17:22 by Sudheer Rivera MD) Arthritis Atrophic vaginitis Benign microscopic hematuria Cystocele History of skin cancer Hypertension (01/05/15) Hypothyroidism (01/05/15) Inflammatory bowel disease Rectocele Recurrent UTI Scar of conjunctiva of right eye Scoliosis Screening for breast cancer Physical Therapy Inpatient Evaluation/Re-Eval M1 PT/OT-IP Prior Functional Status Start: 09/05/21 17:12 Freq: NEEDED Status: Active Protocol: Document 09/05/21 14:30 AB (Rec: 09/05/21 17:26 AB [id number]) Medical Review Prior Functional Status Medical History Reviewed Yes Communication able to make needs known Mobility and Gait pt stated that she is independent with all mobilities and ambulation without AD Social History Household Members significant other Living Arrangements House Number of Floors (Floors) One Floor Number of Stairs To Enter/Railing? 2 steps without rails to enter Home Environment High Toilet,Walk in Shower Home Equipment Shower Seat with Backrest,Hand Held Shower Additional Social History Comment pt has an adjustable bed M2 PT-IP Current Condition Start: 09/05/21 17:12 Freq: NEEDED Status: Active Protocol: Document 09/05/21 14:30 AB (Rec: 09/05/21 17:26 AB [id number]) Physical Therapy Current Condition Current Condition Evaluation Date 09/05/21 Treatment Diagnosis s/p cholecystectomy; difficulty in walking Onset Date 09/04/21 M3 PT-IP Subjective Start: 09/05/21 17:12 Freq: NEEDED Status: Active Protocol: Document 09/05/21 14:30 AB (Rec: 09/05/21 17:26 AB [email or web address]) Subjective Physical Therapy Visit Type Type Initial Evaluation Visit Start Time 14:30 Visit Stop Time 15:15 Total Visit Minutes 45 Number of EQUINE VET Visits 0 Physical Therapy Visit Comments Patient Comments agreeable to do PT Therapy Pain Assessment Pain When Pain Assessed At Rest Pain Present Pain Present Pain Reported Location abdomen Intensity 2 Scale Used increased to 8/10 with mobility Pain Management Techniques Distraction,Modification of Treatment,Re-positioning, Timing of Activity with Medications M4 PT-IP Mobility and Gait Start: 09/05/21 17:12 Freq: NEEDED Status: Active Protocol: Document 09/05/21 14:30 AB (Rec: 09/05/21 17:26 AB [id number]) PT-Bed Mobility Assessment Rolling Type of Rolling Log Rolling Level of Assist Maximal Assistance Supine to Sit Supine to Sit Maximum Assistance,Bedrails PT-Transfer Assessment Sit to and From Stand Sit to and from Stand Maximum Assistance,1 Person Assistance,Use of Upper Extremities Equipment Transfer Assistive Device Gait Belt,Front Wheeled Walker Orthotic/Prosthetic Devices or Brace: No Transfers Transfer Destination Chair Transfer Technique ambulated using FWW Transfer Ability Level of Assist Moderate Assistance,1 Person Assistance,Use of Upper Extremities Comments Mobility Comments spouse in room with pt. educated pt and significant other regarding abdominal precautions and log roll bed mobility. completed log roll supine to sit max A and max cues. pt used bed rail to assist. pt was able to sit on EOB CGA. no c/o dizziness but c/o increase pain. completed sit to stand max A and ambulated using FWW ~ 15 ft mod A and agreed to sit up on chair. positioned pt on chair. call light and table placed within reach. pt stated that she was doing PT for her hip but then had to have cholecystectomy. stated that core and LE strength are not too strong due to her scoliosis. informed pt and SO regarding equipement needs and understood. Gait Assessment Gait Gait Assistance Required: Moderate Assistance Distance (Feet) 15 Able to Maintain Weight Bearing Status Yes During Gait Assistive Devices Assistive Device Gait Belt,Front Wheeled Walker Orthotic/Prosthetic Devices or Brace: No Gait Deviations General Gait Pattern Antalgic,Decreased Stride Length,Decreased Feet Clearance Factors Limiting Gait Function Factors Limiting Gait Function Decreased Activity Tolerance, Decreased Strength,Limited Range of Motion,Pain,Poor Balance PT-Balance Assessment Sitting Balance and Reactions Static Sitting Balance Ability Good Dynamic Sitting Balance Ability Fair Standing Balance and Reactions Static Standing Balance Ability Fair Dynamic Standing Balance Ability Poor Device Used FWW M5 PT-IP Objective Assessments Start: 09/05/21 17:12 Freq: NEEDED Status: Active Protocol: Document 09/05/21 14:30 AB (Rec: 09/05/21 17:26 AB [id number]) Orientation Orientation/Cognition Level of Alertness Alert Orientation Name,Place,Situation Language Function Ability No Deficits Noted Safety Awareness Decreased Safety Awareness Memory Description No Deficits Noted Gross Range of Motion Lower Extremity ROM Assessment Within Functional Limits Strength Lower Extremity Strength Hip 4-/5 Knee 4-/5 Coordination Assessment Gross Coordination Gross Coordination WNL Sensation Assessment Sensation Gross Sensation WNL Muscle Tone Muscle Tone WNL Yes M6 PT-IP Treatment Start: 09/05/21 17:12 Freq: NEEDED Status: Active Protocol: Document 09/05/21 14:30 AB (Rec: 09/05/21 17:26 AB [email or web address]) Physical Therapy Treatment Education Education Provided Safety M7 PT-IP Assessment and Plan Start: 09/05/21 17:12 Freq: NEEDED Status: Active Protocol: Document 09/05/21 14:30 AB (Rec: 09/05/21 17:26 AB [email or web address]) PT Summary Assessment and Plan Potential Rehabilitation Potential Fair Status of Condition at Evaluation Evolving Summary Impairments Pain,ROM,Strength,Balance, Coordination,Sensation, Cognition,Bed Mobility, Transfers,Gait,Activity Tolerance Assessment Summary pt requiring max A with mobility and unable to tolerate much activity with c/ o increase abdominal pain. will continue to assess progress. pt plans to go home and her significant other will be able to assist. will have to conduct caregiver training and stair climbing training when appropriate. pt will also benefit from HHPT. Goals Bed Mobility Goal Independent Transfer Goal Independent,Front Wheeled Walker Gait Goal Independent,Front Wheel Walker Gait Distance 200 Other Goals improve ambulation without AD SBA 200 ft up/down 2 steps without rails SBA Days to Meet Goals 10 Frequency of Treatment Frequency Of Treatment Once a Day Treatment Plan Physical Therapy Treatment Plan Bed Mobility Training,Transfer Training,Gait Training, Therapeutic Exercise,Balance Retraining,Post Op Education, Discharge Planning,Hot or Cold Pack,Neuromuscular Re-ed, Coordination Retraining,Manual Therapy Precautions Abdominal Surgery Precautions Log Roll,Lifting Restrictions, Gait Belt above Incisional Area Recommendations To Nursing Amount of Assist Needed 1 Person Assist Discharge Recommendations PT Discharge Recommendations Home with Assistance,Home Health Equipment Needed for Home Before FWW Discharge Transportation Needs at Discharge Private Vehicle
[2021-09-05 15:10] LABS: Add Manual Diff / Slide Review NO; Basophils Absolute Auto 0 /uL (0-100); Basophils Percent Auto 0.1 % (0-2); Eosinophils Absolute Auto 0 /uL (0-450); Hemoglobin 11.9 g/dL (12.0-16.0); Lymphocytes Absolute Auto 500 /uL (1100-4500); Mean Corpuscular HGB Conc 33.9 % (30-36); Mean Corpuscular Hemoglobin 31.2 PG (26-34); Mean Corpuscular Volume 91.8 fL (80-100); Monocytes Absolute Auto 800 /uL (0-900); Monocytes Percent Auto 5.1 % (3-14); Neutrophils Absolute Auto 14000 /uL (1500-7000); Neutrophils Percent Auto 91.8 % (50-75); Platelet Count 57 X10^3/uL (150-400); Red Blood Cell Count 3.81 X10^6/uL (4.0-5.2); Red Cell Distribution Width 15.1 % (11.6-14.8); White Blood Cell Count 15.2 X10^3/uL (4.5-11.0)
[2021-09-05 15:26] LABS: Bilirubin Direct 4.3 mg/dL (0.0-0.4)
[2021-09-05 15:29] LABS: Alanine Aminotransferase 188 IU/L (<35); Albumin 2.5 g/dL (3.5-5.0); Albumin Globulin Ratio 1.3 (1.0-2.8); Alkaline Phosphatase 80 U/L (38-126); Aspartate Aminotransferase 171 IU/L (14-36); BUN Creatinine Ratio 22.2 (6-22); Bilirubin Total 6.1 mg/dL (0.2-1.3); Blood Urea Nitrogen 22 mg/dL (7-17); Calcium 8.3 mg/dL (8.4-10.2); Carbon Dioxide 23 mmol/L (22-32); Chloride 104 mmol/L (98-107); Estimated Glomerular Filt Rate 54.5 mL/min (>60); Glucose 170 mg/dL (80-110); HEMOLYSIS < 15 (0-50); Potassium 4.1 mmol/L (3.4-5.1); Sodium 134 mmol/L (137-145); Total Protein 4.5 g/dL (6.3-8.2)
--- NOTE | 2021-09-05 16:00 | OT.IPNOTE ---
Pt just completed working with PT, and not wanting to get up at this time and requested to do OT eval tomorrow.
[2021-09-05] MEDS: OXYCODONE IR 10 MG TABLET PO (17:58)
[2021-09-05] MEDS: ALBUMIN HUMAN 50 GM/200 ML VIAL IV (19:55)
--- NOTE | 2021-09-05 20:59 | PM.ICURNDS ---
- :: This patient was seen via real time interactive two-way audiovisual telecommunication. 75 yo WOman s/p open Cholecystectomy 09/04/21 complicated by venous liver bleed with 2L EBL. BP wnl with IVF but urine output low so patient will be getting some albumin (50 gm) now and will continue with LR 100 cc/hr. Will start stool softeners and order prn bisacodyl for bowel regimen. CCT spent 20 min
[2021-09-05] MEDS: NETARSUDIL LATANOPROST 1 EACH EYE-BOTH (21:46)
[2021-09-05] MEDS: DOCUSATE 100 MG CAPSULE 200 MG PO (21:46)
[2021-09-06] VITALS (27 sets, daily range): BP systolic 110–148; BP diastolic 57–82; PULSE 60–109; RESP 14–25; TEMP 36.3–37.1; O2SAT 89–99
[2021-09-06] MEDS: PIPERACILLIN/TAZO 3.375 GM in SODIUM CHLORIDE 0.9% 100 ML 25 ML IV ×3 (01:30→16:30)
[2021-09-06] MEDS: OXYCODONE IR 10 MG TABLET PO (02:12)
[2021-09-06 07:37] LABS: Add Manual Diff / Slide Review NO; Alanine Aminotransferase 147 IU/L (<35); Albumin 3.6 g/dL (3.5-5.0); Albumin Globulin Ratio 1.6 (1.0-2.8); Alkaline Phosphatase 74 U/L (38-126); Aspartate Aminotransferase 97 IU/L (14-36); BUN Creatinine Ratio 19.6 (6-22); Basophils Absolute Auto 0 /uL (0-100); Basophils Percent Auto 0.1 % (0-2); Bilirubin Total 2.3 mg/dL (0.2-1.3); Blood Urea Nitrogen 18 mg/dL (7-17); Carbon Dioxide 26 mmol/L (22-32); Chloride 102 mmol/L (98-107); Eosinophils Absolute Auto 0 /uL (0-450); Eosinophils Percent Auto 0.1 % (2-4); Estimated Glomerular Filt Rate 59.4 mL/min (>60); Globulin 2.2 g/dL (1.7-4.1); Glucose 110 mg/dL (80-110); HEMOLYSIS < 15 (0-50); Hematocrit 31.2 % (36-46); Hemoglobin 10.4 g/dL (12.0-16.0); Lymphocytes Absolute Auto 500 /uL (1100-4500); Lymphocytes Percent Auto 4.3 % (25-40); Mean Corpuscular HGB Conc 33.5 % (30-36); Mean Corpuscular Volume 92.6 fL (80-100); Monocytes Absolute Auto 500 /uL (0-900); Monocytes Percent Auto 4.3 % (3-14); Neutrophils Absolute Auto 10100 /uL (1500-7000); Neutrophils Percent Auto 91.2 % (50-75); Platelet Count 47 X10^3/uL (150-400); Potassium 3.5 mmol/L (3.4-5.1); Red Blood Cell Count 3.37 X10^6/uL (4.0-5.2); Red Cell Distribution Width 15.5 % (11.6-14.8); Sodium 136 mmol/L (137-145); Total Protein 5.8 g/dL (6.3-8.2)
[2021-09-06] MEDS: DOCUSATE 100 MG CAPSULE 200 MG PO ×2 (08:35→20:46)
[2021-09-06] MEDS: SERTRALINE 50 MG TABLET 100 MG PO (08:35)
[2021-09-06] MEDS: LEVOTHYROXINE 112 MCG TABLET PO (08:35)
[2021-09-06] MEDS: CHLORTHALIDONE 25 MG TABLET PO (08:35)
[2021-09-06] MEDS: DORZOLAMIDE/TIMOLOL OPHTH 10 ML 1 DROPS EYE-BOTH ×2 (08:36→20:46)
[2021-09-06] MEDS: BRIMONIDINE 0.2% OPHTH 5 ML 1 DROPS EYE-BOTH ×2 (08:36→20:45)
--- NOTE | 2021-09-06 09:09 | P.PN_ITS ---
Subjective Subjective Date Patient Seen: 09/06/21 Time Patient Seen: 09:09 Interval history: No major overnight events. No nausea tolerateing diet. Was out of bed yesterday to chair. Exam Vital Signs (past 8 hours): - 09/06/21 02:00 09/06/21 03:00 09/06/21 04:00 Temperature 97.7 F Pulse Rate 104 H 109 H 106 H Respiratory Rate 22 20 24 Blood Pressure 123/74 138/76 132/75 Pulse Oximetry 99 96 96 09/06/21 05:00 09/06/21 06:00 09/06/21 07:00 Temperature 98.0 F Pulse Rate 105 H 105 H 104 H Respiratory Rate 14 14 20 Blood Pressure 138/73 133/73 127/72 Pulse Oximetry 96 96 93 09/06/21 07:30 09/06/21 08:00 09/06/21 08:03 Temperature 98.3 F Pulse Rate 104 H 104 H Respiratory Rate 25 H 20 Blood Pressure 135/79 Pulse Oximetry 92 95 Oxygen Delivery Method Nasal Cannula Oxygen Flow Rate 2 Narrative Exam Narrative: Gen-Adult woman alert and oriented Skin-Jaundice significantly improved from yesterday Abdomen-Incision CDI. Drain serosanginous less sanginous then yesterday no bile Objective Labs Result Diagrams: 09/06/21 06:46 09/06/21 06:46 Labs: Laboratory Results - last 24 hr 09/05/21 09/05/21 09/05/21 07:40 14:56 14:56 WBC 15.2 H RBC 3.81 L Hgb 11.9 L Hct 35.0 L MCV 91.8 MCH 31.2 MCHC 33.9 RDW 15.1 H Plt Count 57 L Neut % (Auto) 91.8 H Lymph % (Auto) 3.0 L Stokes % (Auto) 5.1 Eos % (Auto) 0.0 L Baso % (Auto) 0.1 Neut # (Auto) 61874 H Lymph # (Auto) 500 L Stokes # (Auto) 800 Eos # (Auto) 0 Baso # (Auto) 0 Sodium 134 L Potassium 4.1 Chloride 104 Carbon Dioxide 23 BUN 22 H Creatinine 0.99 Estimated GFR 54.5 L BUN/Creatinine Ratio 22.2 H Glucose 170 H Calcium 8.3 L Total Bilirubin 6.1 H Direct Bilirubin 9.4 H AST 171 H ALT 188 H Alkaline Phosphatase 80 Total Protein 4.5 L Albumin 2.5 L Globulin 2.0 Albumin/Globulin Ratio 1.3 09/05/21 09/06/21 09/06/21 14:56 06:46 06:46 WBC 11.0 RBC 3.37 L Hgb 10.4 L Hct 31.2 L MCV 92.6 MCH 31.0 MCHC 33.5 RDW 15.5 H Plt Count 47 L Neut % (Auto) 91.2 H Lymph % (Auto) 4.3 L Stokes % (Auto) 4.3 Eos % (Auto) 0.1 L Baso % (Auto) 0.1 Neut # (Auto) 28077 H Lymph # (Auto) 500 L Stokes # (Auto) 500 Eos # (Auto) 0 Baso # (Auto) 0 Sodium 136 L Potassium 3.5 Chloride 102 Carbon Dioxide 26 BUN 18 H Creatinine 0.92 Estimated GFR 59.4 L BUN/Creatinine Ratio 19.6 Glucose 110 Calcium 9.0 Total Bilirubin 2.3 H Direct Bilirubin 4.3 H AST 97 H ALT 147 H Alkaline Phosphatase 74 Total Protein 5.8 L Albumin 3.6 Globulin 2.2 Albumin/Globulin Ratio 1.6 PFSH Medical History Arthritis Atrophic vaginitis Benign microscopic hematuria Cystocele History of skin cancer Hypertension (01/05/15) Hypothyroidism (01/05/15) Inflammatory bowel disease Rectocele Recurrent UTI Scar of conjunctiva of right eye Scoliosis Screening for breast cancer Surgical History H/O thyroidectomy History of hip replacement History of repair of hiatal hernia Status post glaucoma surgery Status post Annamaria fundoplication Family History Father Coronary artery disease Gout Hypertension Social History marital status: unmarried,single number of children: 2 household members: significant other Smoking Status: Never smoker alcohol intake: current caffeine: Yes Assessment & Plan Post-op Postoperative Procedures: Procedures Operation Date: 09/04/21 17:45 Actual Procedure Side Surgeon p Laparoscopic Cholecystectomy CONVERTED TO OPEN TO CONTROL BLEEDING Not Applicable Sudheer Rivera MD Postoperative status narrative: 75F with ITP POD 2 sp lap to open cholecystectomy for control of bleeding. Hemodynamcially normal. #Acute blood loss anemia. Bleeding has stopped the abdominal drain is serous and scant output, Ht stable. #ITP/Thrombocytopenia. Plts now down to 47 transfusion of platelets today. -Diet as tolerated -OOB PT/OT. -Will remove abdominal drain tomorrow -Continue ahumada for monitoring -SCDs only no chemical VTE prophylaxis contraindicated -Adding flexeril for muscle spasms. Quality VTE Deep Vein Thrombosis/Pulmonary Embolism Present on Admission: No
[2021-09-06] MEDS: CYCLOBENZAPRINE 10 MG TABLET PO ×3 (09:28→20:46)
[2021-09-06] MEDS: POTASSIUM CHLORIDE 20 MEQ TAB PO (09:28)
--- NOTE | 2021-09-06 09:45 | OT.IP.EVAL ---
Current Diagnoses Acute cholecystitis (09/04/21) Surgery Performed Operation Date: 09/04/21 17:45 Actual Procedures p Laparoscopic Cholecystectomy CONVERTED TO OPEN TO CONTROL BLEEDING(Not Applicable) - Sudheer Rivera MD Past Medical History (Last Reviewed 09/04/21 @ 17:22 by Sudheer Rivera MD) Arthritis Atrophic vaginitis Benign microscopic hematuria Cystocele H/O thyroidectomy History of hip replacement History of repair of hiatal hernia History of skin cancer Hypertension (01/05/15) Hypothyroidism (01/05/15) Inflammatory bowel disease Rectocele Recurrent UTI Scar of conjunctiva of right eye Scoliosis Screening for breast cancer Status post glaucoma surgery Status post Annamaria fundoplication Surgical History (Last Reviewed 09/04/21 @ 17:22 by Sudheer Rivera MD) H/O thyroidectomy History of hip replacement History of repair of hiatal hernia Status post glaucoma surgery Status post Annamaria fundoplication Occupational Therapy Inpatient Evaluation/Re-Eval M1 PT/OT-IP Prior Functional Status Start: 09/05/21 17:12 Freq: NEEDED Status: Active Protocol: Document 09/06/21 09:06 [facility] (Rec: 09/06/21 11:47 [facility] [id number]) Medical Review Prior Functional Status Medical History Reviewed Yes Communication able to make needs known Mobility and Gait pt stated that she is independent with all mobilities and ambulation without AD Activities of Daily Living and IADL's Pt states she was completely independent for all he ADl and IADl needs. Social History Household Members significant other Living Arrangements House Number of Floors (Floors) One Floor Number of Stairs To Enter/Railing? 2 steps without rails to enter Home Environment High Toilet,Walk in Shower Home Equipment Shower Seat with Backrest,Hand Held Shower Additional Social History Comment pt has an adjustable bed M2 OT-IP Current Condition Start: 09/06/21 11:33 Freq: Status: Active Protocol: Document 09/06/21 09:06 [facility] (Rec: 09/06/21 11:47 [facility] [id number]) Occupational Therapy Current Condition Current Condition Evaluation Date 09/06/21 Treatment Diagnosis S/P laproscopic cholecystectomy Diagnosis Onset Date 09/04/21 Post Operative Precautions Abdominal Surgery Precautions Log Roll,Lifting Restrictions, Gait Belt above Incisional Area M3 OT- IP Subjective and Pain Start: 09/06/21 11:33 Freq: Status: Active Protocol: Document 09/06/21 09:06 [facility] (Rec: 09/06/21 11:47 [facility] [id number]) OT- Subjective Occupational Therapy Visit Type Type Initial Evaluation Visit Start Time 09:06 Visit Stop Time 09:45 Total Visit Minutes 39 Occupational Therapy Visit Comments Patient Comments Pt agreed to get up to the recliner. Patient/Caregiver Goals To go home. M4 OT- IP ADL's Start: 09/06/21 11:33 Freq: Status: Active Protocol: Document 09/06/21 09:06 [facility] (Rec: 09/06/21 11:47 [facility] [id number]) OT [id number] Comments OT Self-Feeding Comments Pt states has not been hungry and did not eat breakfast. OT ADL-Grooming General Evaluation Grooming Ability Independent Areas Needing Assistance Retrieving/Set-up of Grooming Items Comments OT Grooming Comments While in the recliner. OT ADL-Oral Care General Eval Oral Care Ability Independent OT ADL-Dressing General Eval Lower Body Dressing Ability Maximum Assistance Areas Needing Assistance Socks Comments OT Dressing Comments Beginning to initiate LB dressing equipment needs. Pt states her Life partner will be able to assist her. OT ADL-Toileting Comments OT Toileting Comments Bishop in place. OT ADL-Bathing Bathing Type Bathing Type Sponge Bath General Evaluation Bathing Ability Moderate Assistance Areas Needing Assistance Wash/Dry Back Comments OT Bathing Comments Pt able to do a quick sponge off oh her chest, arms and perineal area from the front while seated in the recliner, but not wanting to stand at this time. M5 OT- IP IADL's Start: 09/06/21 11:33 Freq: Status: Active Protocol: Document 09/06/21 09:06 [facility] (Rec: 09/06/21 11:47 [facility] [id number]) OT-Instrumental Activities of Daily Living Home Safety Awareness Home Safety Comments Pt has a supportive partner that is able to assist her with all her needs at home. Money Management Money Management Comments Prior, her life partner does the bills. M6 OT- IP Functional Cognition Start: 09/06/21 11:33 Freq: Status: Active Protocol: Document 09/06/21 09:06 [facility] (Rec: 09/06/21 11:47 [facility] [id number]) Cognitive Factors Limiting Selfcare Function Cognitive Ability Level of Alertness Alert Patient Orientation Name,Place,Situation Attention Span Ability Capable of Focused Attention, Capable of Sustained Attention Ability to Follow Commands Able to Follow Multi-Step Commands Cognitive Comments Cognitive Assessment Comments Pt appears intact for cognitive needs. OT- Vision and Hearing OT- Hearing Assessment OT- Hearing Assessment Use of Hearing Aids OT- Vision Assessment Visual Acuity Glasses All The Time M7 OT- IP Mobility and Balance Start: 09/06/21 11:33 Freq: Status: Active Protocol: Document 09/06/21 09:06 [facility] (Rec: 09/06/21 11:47 [facility] [id number]) OT- Bed Mobility Assessment Rolling Type of Rolling Roll to Right Level of Assistance Standby Assistance,Bedrails Supine to Sit Supine to Sit Assist Contact Guard Assistance,1 Person Assistance Scooting Scooting to Edge of Bed Standby Assistance,1 Person Assistance OT-Transfer Assessment Sit to and From Stand Sit to and from Stand Minimal Assistance,1 Person Assistance Transfers Transfer Ability Contact Guard Assistance,1 Person Assistance Technique Transfer Destination Bed,Chair Transfer Technique Stand Step Pivot Devices Transfer Assistive Devices Gait Belt,Front Wheeled Walker Comments Mobility Comments Pt able to use bed rail to assist to roll and EMMANUEL to get upright form side lying. EMMANUEL to stand and transfer to the recliner. M9 OT- IP Assessment and Plan Start: 09/06/21 11:33 Freq: Status: Active Protocol: Document 09/06/21 09:06 [facility] (Rec: 09/06/21 11:47 [facility] [id number]) OT Summary Assessment and Plan Potential Rehabilitation Potential Good Analytic Complexity at Evaluation Moderate Summary OT Impairments Pain,Functional Mobility, Dressing,Toileting,Bathing, Toilet Transfers,Shower Transfers,Activity Tolerance Progress Towards Goals Progressing Toward Goals Assessment Summary Pt MOD complexity and main barriers are steps, now needing one person assist for ADL and mobility needs. Pt has a supportive Life Partner to assist pt at home. To initiate caregiver training next session. Goals Self-Feeding Goal Independent Grooming Goal Independent Dressing Goal Minimal Assistance Toileting Goal Independent Bathing Goal Minimal Assistance Toilet Transfer Goal Independent Shower Transfer Goal Contact Guard Assistance Patient/Caregiver Education Goal Caregiver Independent Assisting Patient Days to Meet Goals 3 Frequency of Treatment Frequency Of Treatment Once a Day Treatment Plan OT Treatment Plan ADL Training,Functional Mobility,Patient/Family Education,Discharge Planning Other Treatment Recommendations and Next Shower versus sponge off at Treatment Focus the sink while standing, caregiver training Discharge Recommendations OT Discharge Recommendations Home with Assistance Home Equipment Needs fww, LB dressing equipment Transportation Needs at Discharge Private Vehicle
--- NOTE | 2021-09-06 11:34 | P.TELICUPN_ITS ---
Subjective Subjective :: This patient was seen via real time interactive two-way audiovisual telecommunication. No acute events reported overnight, receiving 6 pack of platelets by surgery for plt of 47 on morning CBC. Drain with minimal output Current Medications Current Medications Medications: Home Medications chlorthalidone 25 mg tablet 25 mg PO QAM #90 tab 02/13/17 [Rx Confirmed 09/04/21] irbesartan 150 mg tablet 150 mg PO QAM #90 tab 02/13/17 [Rx Confirmed 09/04/21] sertraline 100 mg tablet 100 mg PO QAM #90 tab 02/13/17 [Rx Confirmed 09/04/21] levothyroxine 112 mcg tablet 112 mcg PO QAM 04/19/21 [History Confirmed 09/04/21] oxycodone-acetaminophen 5 mg-325 mg tablet 2 tab PO Q4H PRN #30 tab 07/11/21 [Rx Confirmed 09/04/21] estradiol 1 g VAGINAL 2XW 09/04/21 [History Confirmed 09/04/21] netarsudil 0.02 %-latanoprost 0.005 % eye drops ([facility]) 1 drp OPHTHALMIC (EYE) QPM 09/04/21 [History Confirmed 09/05/21] simvastatin 40 mg tablet 40 mg PO DAILY 09/04/21 [History Confirmed 09/04/21] vitamin B complex (B Complex-Vitamin B12) 1 tab PO QAM 09/04/21 [History Confirmed 09/04/21] brimonidine 0.2 % eye drops 1 drp EYE-BOTH QAM AND QPM 09/05/21 [History Confirmed 09/05/21] dorzolamide 22.3 mg-timolol 6.8 mg/mL eye drops 1 drp EYE-BOTH QAM AND QPM 09/05/21 [History Confirmed 09/05/21] Visit Medications (administered) Generic Name Dose Route Start Last Admin Trade Name Freq PRN Reason Stop Dose Admin Brimonidine Tartrate 1 drops 09/05/21 09:00 09/06/21 08:36 Brimonidine 0.2% Ophth 5 Ml EYE-BOTH 1 drops BID ZORAIDA Administration Calcium Carbonate 1,000 mg 09/04/21 17:18 09/05/21 08:42 Calcium Carbonate 500 Mg Tab PO 1,000 mg Q4HR PRN Administration Dyspepsia Chlorthalidone 25 mg 09/04/21 22:30 09/06/21 08:35 Chlorthalidone 25 Mg Tablet PO 25 mg DAILY ZORAIDA Administration Cyclobenzaprine HCl 10 mg 09/06/21 09:15 09/06/21 09:28 Cyclobenzaprine 10 Mg Tablet PO 10 mg TID ZORAIDA Administration Docusate Sodium 200 mg 09/05/21 21:00 09/06/21 08:35 Docusate 100 Mg Capsule PO 200 mg BID ZORAIDA Administration Dorzolamide/Timolol 1 drops 09/05/21 09:00 09/06/21 08:36 Dorzolamide/Timolol Ophth 10 Ml EYE-BOTH 1 drops BID ZORAIDA Administration Fentanyl 0 mcg 09/04/21 18:09 09/04/21 21:38 Fentanyl 100 Mcg/2 Ml Inj IV 100 mcg Q5M PRN Administration Pain, Moderate (4-6) Hydromorphone HCl 0.5 mg 09/04/21 20:55 09/04/21 22:34 Hydromorphone 0.5 Mg Inj IV 0.5 mg Q1H PRN Administration Pain, Moderate (4-6) Piperacillin Sod/Tazobactam 100 mls @ 25 mls/hr 09/04/21 17:30 09/06/21 08:35 Sod 3.375 gm/ Sodium Chloride IV 25 mls/hr Q8H ZORAIDA Administration Levothyroxine Sodium 112 mcg 09/05/21 07:00 09/06/21 08:35 Levothyroxine 112 Mcg Tablet PO 112 mcg QACBREAK ZORAIDA Administration Nf - Netarsudil- 1 drop 09/05/21 21:00 09/05/21 21:46 Latanoprost ( EYE-BOTH 1 drop Rocklatan) 0.02-0. BEDTIME ZORAIDA Administration 005 % Drops) Oxycodone HCl 10 mg 09/05/21 08:20 09/06/21 02:12 Oxycodone Ir 10 Mg Tablet PO 10 mg Q6HR PRN Administration Pain, Severe (7-10) Oxycodone HCl 5 mg 09/05/21 08:30 09/05/21 16:12 Oxycodone Ir 5 Mg Tablet PO 5 mg Q4H PRN Administration Pain, Moderate (4-6) Sertraline HCl 100 mg 09/04/21 22:30 09/06/21 08:35 Sertraline 50 Mg Tablet PO 100 mg DAILY ZORAIDA Administration Objective Labs Result Diagrams: 09/06/21 06:46 09/06/21 06:46 Labs: Laboratory Results - last 24 hr 09/05/21 09/05/21 09/05/21 07:40 14:56 14:56 WBC 15.2 H RBC 3.81 L Hgb 11.9 L Hct 35.0 L MCV 91.8 MCH 31.2 MCHC 33.9 RDW 15.1 H Plt Count 57 L Neut % (Auto) 91.8 H Lymph % (Auto) 3.0 L Sanders % (Auto) 5.1 Eos % (Auto) 0.0 L Baso % (Auto) 0.1 Neut # (Auto) 81189 H Lymph # (Auto) 500 L Sanders # (Auto) 800 Eos # (Auto) 0 Baso # (Auto) 0 Sodium 134 L Potassium 4.1 Chloride 104 Carbon Dioxide 23 BUN 22 H Creatinine 0.99 Estimated GFR 54.5 L BUN/Creatinine Ratio 22.2 H Glucose 170 H Calcium 8.3 L Total Bilirubin 6.1 H Direct Bilirubin 9.4 H AST 171 H ALT 188 H Alkaline Phosphatase 80 Total Protein 4.5 L Albumin 2.5 L Globulin 2.0 Albumin/Globulin Ratio 1.3 09/05/21 09/06/21 09/06/21 14:56 06:46 06:46 WBC 11.0 RBC 3.37 L Hgb 10.4 L Hct 31.2 L MCV 92.6 MCH 31.0 MCHC 33.5 RDW 15.5 H Plt Count 47 L Neut % (Auto) 91.2 H Lymph % (Auto) 4.3 L Sanders % (Auto) 4.3 Eos % (Auto) 0.1 L Baso % (Auto) 0.1 Neut # (Auto) 29453 H Lymph # (Auto) 500 L Sanders # (Auto) 500 Eos # (Auto) 0 Baso # (Auto) 0 Sodium 136 L Potassium 3.5 Chloride 102 Carbon Dioxide 26 BUN 18 H Creatinine 0.92 Estimated GFR 59.4 L BUN/Creatinine Ratio 19.6 Glucose 110 Calcium 9.0 Total Bilirubin 2.3 H Direct Bilirubin 4.3 H AST 97 H ALT 147 H Alkaline Phosphatase 74 Total Protein 5.8 L Albumin 3.6 Globulin 2.2 Albumin/Globulin Ratio 1.6 Exam Vital Signs (past 8 hours): - 09/06/21 04:00 09/06/21 05:00 09/06/21 06:00 Temperature 98.0 F Pulse Rate 106 H 105 H 105 H Respiratory Rate 24 14 14 Blood Pressure 132/75 138/73 133/73 Pulse Oximetry 96 96 96 09/06/21 07:00 09/06/21 07:30 09/06/21 08:00 Temperature Pulse Rate 104 H 104 H 104 H Respiratory Rate 20 25 H 20 Blood Pressure 127/72 135/79 Pulse Oximetry 93 92 95 09/06/21 08:03 09/06/21 09:00 09/06/21 09:20 Temperature 98.3 F Pulse Rate 102 H 103 H Respiratory Rate 23 24 Blood Pressure 134/77 141/82 H Pulse Oximetry 92 09/06/21 10:00 09/06/21 11:00 Temperature 98.0 F Pulse Rate 95 H 90 Respiratory Rate 22 20 Blood Pressure 121/61 Pulse Oximetry 99 94 Oxygen Delivery Method Nasal Cannula Oxygen Flow Rate 0 Quality TeleICU VTE Deep Vein Thrombosis/Pulmonary Embolism Present on Admission: No Assessment & Plan Assessment & Plan narrative: Acute Cholecystitis s/p Open Lap Cholecystectomy sepsis 2/2 to cholecystitis, improved Complicated by liver venous bleed Acute on 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
--- NOTE | 2021-09-06 11:46 | PT.IPTN ---
Current Diagnoses Acute cholecystitis (09/04/21) Surgery Performed Operation Date: 09/04/21 17:45 Actual Procedures p Laparoscopic Cholecystectomy CONVERTED TO OPEN TO CONTROL BLEEDING(Not Applicable) - Sudheer Rivera MD Physical Therapy Treatment Note M2 PT-IP Current Condition Start: 09/05/21 17:12 Freq: NEEDED Status: Active Protocol: Document 09/05/21 14:30 AB (Rec: 09/05/21 17:26 AB [email or web address]) Physical Therapy Current Condition Current Condition Evaluation Date 09/05/21 Treatment Diagnosis s/p cholecystectomy; difficulty in walking Onset Date 09/04/21 M3 PT-IP Subjective Start: 09/05/21 17:12 Freq: NEEDED Status: Active Protocol: Document 09/06/21 11:46 AB (Rec: 09/06/21 13:01 AB [email or web address]) Subjective Physical Therapy Visit Type Type Treatment Note Visit Start Time 11:46 Visit Stop Time 12:00 Total Visit Minutes 14 Number of RESEARCH LABORATORY MANAGER Visits 0 Physical Therapy Visit Comments Patient Comments agreed to do PT Therapy Pain Assessment Pain When Pain Assessed At Rest Pain Present Pain Present Pain Reported Location abdomen Scale Used pain scale not stated Pain Management Techniques Distraction,Modification of Treatment,Re-positioning, Timing of Activity with Medications M4 PT-IP Mobility and Gait Start: 09/05/21 17:12 Freq: NEEDED Status: Active Protocol: Document 09/06/21 11:46 AB (Rec: 09/06/21 13:01 AB [email or web address]) PT-Bed Mobility Assessment Supine to Sit Supine to Sit Standby Assistance,Bedrails PT-Transfer Assessment Sit to and From Stand Sit to and from Stand Minimal Assistance,1 Person Assistance,Use of Upper Extremities Equipment Transfer Assistive Device Gait Belt,Front Wheeled Walker Orthotic/Prosthetic Devices or Brace: No Transfers Transfer Destination Chair Transfer Technique ambulated Transfer Ability Level of Assist Minimal Assistance,1 Person Assistance,Use of Upper Extremities Comments Mobility Comments pt completed log roll supine to sit SBA with use of bed rail to assist. completed sit to stand from EOB min A and agreed to ambulate in room and completed ~ 40 ft using FWW min A. pt agreed to sit on chair. positioned on chair. call light and table placed within reach. Gait Assessment Gait Gait Assistance Required: Minimum Assistance Distance (Feet) 40 Able to Maintain Weight Bearing Status Yes During Gait Assistive Devices Assistive Device Gait Belt,Front Wheeled Walker Orthotic/Prosthetic Devices or Brace: No Gait Deviations General Gait Pattern Decreased Stride Length, Decreased Feet Clearance Factors Limiting Gait Function Factors Limiting Gait Function Decreased Activity Tolerance, Decreased Strength,Limited Range of Motion,Pain,Poor Balance,Poor Safety Awareness M5 PT-IP Objective Assessments Start: 09/05/21 17:12 Freq: NEEDED Status: Active Protocol: Document 09/05/21 14:30 AB (Rec: 09/05/21 17:26 AB [email or web address]) Orientation Orientation/Cognition Level of Alertness Alert Orientation Name,Place,Situation Language Function Ability No Deficits Noted Safety Awareness Decreased Safety Awareness Memory Description No Deficits Noted Gross Range of Motion Lower Extremity ROM Assessment Within Functional Limits Strength Lower Extremity Strength Hip 4-/5 Knee 4-/5 Coordination Assessment Gross Coordination Gross Coordination WNL Sensation Assessment Sensation Gross Sensation WNL Muscle Tone Muscle Tone WNL Yes M6 PT-IP Treatment Start: 09/05/21 17:12 Freq: NEEDED Status: Active Protocol: Document 09/06/21 11:46 AB (Rec: 09/06/21 13:01 AB [id number]) Physical Therapy Treatment Education Education Provided Precautions,Safety M7 PT-IP Assessment and Plan Start: 09/05/21 17:12 Freq: NEEDED Status: Active Protocol: Document 09/06/21 11:46 AB (Rec: 09/06/21 13:01 AB [email or web address]) PT Summary Assessment and Plan Potential Rehabilitation Potential Good Summary Impairments Pain,ROM,Strength,Balance, Coordination,Sensation,Tone, Cognition,Bed Mobility, Transfers,Gait,Activity Tolerance Progress Towards Goals Progressing Toward Goals Assessment Summary pt requiring min A with mobility and able to tolerate more activity but still limited. will continue to assess progress and will conduct caregiver training and stair training when appropriate. Goals Bed Mobility Goal Independent Transfer Goal Independent,Front Wheeled Walker Gait Goal Independent,Front Wheel Walker Gait Distance 200 Other Goals improve ambulation without AD SBA 200 ft up/down 2 steps without rails SBA Days to Meet Goals 10 Frequency of Treatment Frequency Of Treatment Once a Day Treatment Plan Physical Therapy Treatment Plan Bed Mobility Training,Transfer Training,Gait Training, Therapeutic Exercise,Balance Retraining,Post Op Education, Discharge Planning,Hot or Cold Pack,Neuromuscular Re-ed, Coordination Retraining,Manual Therapy Precautions Abdominal Surgery Precautions Log Roll,Lifting Restrictions, Gait Belt above Incisional Area Recommendations To Nursing Amount of Assist Needed 1 Person Assist Discharge Recommendations PT Discharge Recommendations Home with Assistance,Home Health Equipment Needed for Home Before FWW Discharge Transportation Needs at Discharge Private Vehicle
[2021-09-06 15:11] LABS: Ionized Calcium 4.6 mg/dL (4.5-5.6)
[2021-09-06] MEDS: POTASSIUM CHLORIDE IN WATER 10 MEQ/100 ML PIGGYBACK 100 MEQ IV (15:34)
[2021-09-06] MEDS: POTASSIUM CHLORIDE IN WATER 10 MEQ/100 ML PIGGYBACK 50 MEQ IV ×2 (17:15→23:35)
[2021-09-06] MEDS: NETARSUDIL LATANOPROST 1 EACH EYE-BOTH (20:46)
[2021-09-07] VITALS (10 sets, daily range): BP systolic 126–149; BP diastolic 75–92; PULSE 90–96; RESP 14–19; TEMP 36.4–37.6; O2SAT 93–97
[2021-09-07] MEDS: POTASSIUM CHLORIDE IN WATER 10 MEQ/100 ML PIGGYBACK 50 MEQ IV (00:57)
[2021-09-07] MEDS: PIPERACILLIN/TAZO 3.375 GM in SODIUM CHLORIDE 0.9% 100 ML 25 ML IV ×2 (02:23→09:22)
[2021-09-07 05:37] LABS: Add Manual Diff / Slide Review NO; Basophils Absolute Auto 0 /uL (0-100); Basophils Percent Auto 0.2 % (0-2); Eosinophils Absolute Auto 0 /uL (0-450); Eosinophils Percent Auto 0.5 % (2-4); Hematocrit 30.3 % (36-46); Hemoglobin 10.4 g/dL (12.0-16.0); Lymphocytes Absolute Auto 1000 /uL (1100-4500); Lymphocytes Percent Auto 9.8 % (25-40); Mean Corpuscular HGB Conc 34.4 % (30-36); Mean Corpuscular Hemoglobin 31.5 PG (26-34); Mean Corpuscular Volume 91.6 fL (80-100); Monocytes Absolute Auto 400 /uL (0-900); Monocytes Percent Auto 3.9 % (3-14); Neutrophils Absolute Auto 8600 /uL (1500-7000); Neutrophils Percent Auto 85.6 % (50-75); Platelet Count 76 X10^3/uL (150-400); Red Blood Cell Count 3.31 X10^6/uL (4.0-5.2); White Blood Cell Count 10.1 X10^3/uL (4.5-11.0)
[2021-09-07 05:54] LABS: Alanine Aminotransferase 111 IU/L (<35); Albumin 3.2 g/dL (3.5-5.0); Albumin Globulin Ratio 1.2 (1.0-2.8); Alkaline Phosphatase 74 U/L (38-126); Aspartate Aminotransferase 57 IU/L (14-36); BUN Creatinine Ratio 14.3 (6-22); Bilirubin Total 1.6 mg/dL (0.2-1.3); Blood Urea Nitrogen 12 mg/dL (7-17); Calcium 9.1 mg/dL (8.4-10.2); Carbon Dioxide 29 mmol/L (22-32); Chloride 102 mmol/L (98-107); Estimated Glomerular Filt Rate > 60.0 mL/min (>60); Globulin 2.7 g/dL (1.7-4.1); Glucose 95 mg/dL (80-110); HEMOLYSIS < 15 (0-50); Potassium 3.6 mmol/L (3.4-5.1); Sodium 137 mmol/L (137-145); Total Protein 5.9 g/dL (6.3-8.2)
[2021-09-07] MEDS: LEVOTHYROXINE 112 MCG TABLET PO (06:54)
[2021-09-07] MEDS: DOCUSATE 100 MG CAPSULE 200 MG PO ×2 (09:11→20:52)
[2021-09-07] MEDS: CYCLOBENZAPRINE 10 MG TABLET PO ×3 (09:12→20:53)
[2021-09-07] MEDS: CHLORTHALIDONE 25 MG TABLET PO (09:12)
[2021-09-07] MEDS: SERTRALINE 50 MG TABLET 100 MG PO (09:12)
[2021-09-07] MEDS: DORZOLAMIDE/TIMOLOL OPHTH 10 ML 1 DROPS EYE-BOTH ×2 (09:15→20:57)
[2021-09-07] MEDS: BRIMONIDINE 0.2% OPHTH 5 ML 1 DROPS EYE-BOTH ×2 (09:15→20:57)
[2021-09-07] MEDS: FUROSEMIDE 40 MG/4 ML VIAL 20 MG IV (10:42)
[2021-09-07] MEDS: POTASSIUM CHLORIDE 20 MEQ/15 ML UDC 40 MEQ PO (10:42)
--- NOTE | 2021-09-07 11:15 | PT.IPTN ---
Current Diagnoses Acute cholecystitis (09/04/21) Surgery Performed Operation Date: 09/04/21 17:45 Actual Procedures p Laparoscopic Cholecystectomy CONVERTED TO OPEN TO CONTROL BLEEDING(Not Applicable) - Sudheer Rivera MD Physical Therapy Treatment Note M2 PT-IP Current Condition Start: 09/05/21 17:12 Freq: NEEDED Status: Active Protocol: Document 09/05/21 14:30 AB (Rec: 09/05/21 17:26 AB [id number]) Physical Therapy Current Condition Current Condition Evaluation Date 09/05/21 Treatment Diagnosis s/p cholecystectomy; difficulty in walking Onset Date 09/04/21 M3 PT-IP Subjective Start: 09/05/21 17:12 Freq: NEEDED Status: Active Protocol: Document 09/07/21 10:52 KS (Rec: 09/07/21 12:49 KS [id number]) Subjective Physical Therapy Visit Type Type Treatment Note Visit Start Time 10:52 Visit Stop Time 11:15 Total Visit Minutes 23 Number of SKINNING MACHINE FEEDER Visits 1 Physical Therapy Visit Comments Patient Comments agreed to do PT M4 PT-IP Mobility and Gait Start: 09/05/21 17:12 Freq: NEEDED Status: Active Protocol: Document 09/07/21 10:52 KS (Rec: 09/07/21 12:49 KS [id number]) PT-Bed Mobility Assessment Rolling Type of Rolling Log Rolling,Roll to Right Level of Assist Contact Guard Assistance,1 Person Assistance Supine to Sit Supine to Sit Standby Assistance,Bedrails Sit to Supine Sit to Supine Minimal Assistance,1 Person Assistance Scooting Scooting to Edge of Bed Standby Assistance PT-Transfer Assessment Sit to and From Stand Sit to and from Stand Contact Guard Assistance,1 Person Assistance,Use of Upper Extremities Equipment Transfer Assistive Device Gait Belt,Front Wheeled Walker Orthotic/Prosthetic Devices or Brace: No Transfers Transfer Destination Bed,Chair Transfer Technique pt ambulated w/ FWW Transfer Ability Level of Assist Contact Guard Assistance, Minimal Assistance,1 Person Assistance,Use of Upper Extremities Comments Mobility Comments Pt SBA to CGA for bed mobility , CGA for sit<>stand and ambulation w/ FWW. Able to ambulate ~75 ft w/ FWW and demonstrated proper use of FWW . Refused stair training today due to fatigue. Upon return to room, pt sat in chair for RN to apply bandage to dressing. SBA for stand<>sit, no cues required for hand placement or slow descent. Pt then got back in bed w/ Min A for LE guidance into bed. Pt left in bed w/ all needs in reach and RN in room. Gait Assessment Gait Gait Assistance Required: Standby Assistance,Contact Guard Assist,1 Person Assist Distance (Feet) 75 Able to Maintain Weight Bearing Status Yes During Gait Assistive Devices Assistive Device Gait Belt,Front Wheeled Walker Orthotic/Prosthetic Devices or Brace: No Gait Deviations General Gait Pattern Decreased Stride Length, Decreased Feet Clearance Factors Limiting Gait Function Factors Limiting Gait Function Decreased Activity Tolerance, Decreased Strength,Limited Range of Motion,Pain,Poor Balance,Poor Safety Awareness PT-Balance Assessment Sitting Balance and Reactions Static Sitting Balance Ability Good Dynamic Sitting Balance Ability Fair Standing Balance and Reactions Static Standing Balance Ability Good Dynamic Standing Balance Ability Fair Device Used FWW M5 PT-IP Objective Assessments Start: 09/05/21 17:12 Freq: NEEDED Status: Active Protocol: Document 09/05/21 14:30 AB (Rec: 09/05/21 17:26 AB [id number]) Orientation Orientation/Cognition Level of Alertness Alert Orientation Name,Place,Situation Language Function Ability No Deficits Noted Safety Awareness Decreased Safety Awareness Memory Description No Deficits Noted Gross Range of Motion Lower Extremity ROM Assessment Within Functional Limits Strength Lower Extremity Strength Hip 4-/5 Knee 4-/5 Coordination Assessment Gross Coordination Gross Coordination WNL Sensation Assessment Sensation Gross Sensation WNL Muscle Tone Muscle Tone WNL Yes M6 PT-IP Treatment Start: 09/05/21 17:12 Freq: NEEDED Status: Active Protocol: Document 09/07/21 10:52 KS (Rec: 09/07/21 12:49 KS [id number]) Physical Therapy Treatment Education Education Provided Precautions,Safety M7 PT-IP Assessment and Plan Start: 09/05/21 17:12 Freq: NEEDED Status: Active Protocol: Document 09/07/21 10:52 KS (Rec: 09/07/21 12:49 KS [id number]) PT Summary Assessment and Plan Potential Rehabilitation Potential Good Status of Condition at Evaluation Evolving Summary Impairments Pain,ROM,Strength,Balance, Coordination,Sensation,Tone, Cognition,Bed Mobility, Transfers,Gait,Activity Tolerance Progress Towards Goals Progressing Toward Goals Assessment Summary Pt showed improvements w/ mobility today requiring SBA to CGA for bed mobility, CGA for sit<>stand and ambulation w/ FWW. Able to ambulate ~60 ft w/ FWW and demonstrated proper use. Refused stair training today due to fatigue. She will need to participate in stair training and caregiver training prior to d/ c if going home. Goals Bed Mobility Goal Independent Transfer Goal Independent,Front Wheeled Walker Gait Goal Independent,Front Wheel Walker Gait Distance 200 Other Goals improve ambulation without AD SBA 200 ft up/down 2 steps without rails SBA Days to Meet Goals 10 Frequency of Treatment Frequency Of Treatment Once a Day Treatment Plan Physical Therapy Treatment Plan Bed Mobility Training,Transfer Training,Gait Training, Therapeutic Exercise,Balance Retraining,Post Op Education, Discharge Planning,Hot or Cold Pack,Neuromuscular Re-ed, Coordination Retraining,Manual Therapy Precautions Abdominal Surgery Precautions Log Roll,Lifting Restrictions, Gait Belt above Incisional Area Recommendations To Nursing Amount of Assist Needed 1 Person Assist Discharge Recommendations PT Discharge Recommendations Home with Assistance,Home Health Equipment Needed for Home Before FWW Discharge Transportation Needs at Discharge Private Vehicle
[2021-09-07] MEDS: OXYCODONE IR 10 MG TABLET PO ×2 (11:26→20:52)
--- NOTE | 2021-09-07 11:54 | OT.IPNOTE ---
Per nursing aid pt just wanting to sleep and not be disturbed. Per nursing aid, pt able to get to the sink and able to do all her grooming needs.
--- NOTE | 2021-09-07 14:00 | PM.PNPO.1 ---
Exam Vital Signs (past 8 hours): - 09/07/21 07:00 09/07/21 09:12 09/07/21 11:30 Temperature 97.9 F Pulse Rate 94 H Respiratory Rate 18 Blood Pressure 128/77 Pulse Oximetry 95 96 95 Oxygen Delivery Method Room Air Oxygen Flow Rate 0 Objective Labs Result Diagrams: 09/07/21 05:15 09/07/21 05:15 Labs: Laboratory Results - last 24 hr 09/04/21 09/04/21 09/07/21 19:07 23:59 05:15 WBC 10.1 RBC 3.31 L Hgb 10.4 L Hct 30.3 L MCV 91.6 MCH 31.5 MCHC 34.4 RDW 15.0 H Plt Count 76 L Neut % (Auto) 85.6 H Lymph % (Auto) 9.8 L Thayer % (Auto) 3.9 Eos % (Auto) 0.5 L Baso % (Auto) 0.2 Neut # (Auto) 8600 H Lymph # (Auto) 1000 L Thayer # (Auto) 400 Eos # (Auto) 0 Baso # (Auto) 0 Sodium Potassium Chloride Carbon Dioxide BUN Creatinine Estimated GFR BUN/Creatinine Ratio Glucose Calcium Ionized Calcium Harry 4.6 Total Bilirubin AST ALT Alkaline Phosphatase Total Protein Albumin Globulin Albumin/Globulin Ratio Blood Type AB Positive Antibody Screen Negative Crossmatch See Detail 09/07/21 05:15 WBC RBC Hgb Hct MCV MCH MCHC RDW Plt Count Neut % (Auto) Lymph % (Auto) Thayer % (Auto) Eos % (Auto) Baso % (Auto) Neut # (Auto) Lymph # (Auto) Thayer # (Auto) Eos # (Auto) Baso # (Auto) Sodium 137 Potassium 3.6 Chloride 102 Carbon Dioxide 29 BUN 12 Creatinine 0.84 Estimated GFR > 60.0 BUN/Creatinine Ratio 14.3 Glucose 95 Calcium 9.1 Ionized Calcium Harry Total Bilirubin 1.6 H AST 57 H ALT 111 H Alkaline Phosphatase 74 Total Protein 5.9 L Albumin 3.2 L Globulin 2.7 Albumin/Globulin Ratio 1.2 Blood Type Antibody Screen Crossmatch [facility] Medical History Arthritis Atrophic vaginitis Benign microscopic hematuria Cystocele History of skin cancer Hypertension (01/05/15) Hypothyroidism (01/05/15) Inflammatory bowel disease Rectocele Recurrent UTI Scar of conjunctiva of right eye Scoliosis Screening for breast cancer Surgical History H/O thyroidectomy History of hip replacement History of repair of hiatal hernia Status post glaucoma surgery Status post Annamaria fundoplication Family History Father Coronary artery disease Gout Hypertension Social History marital status: unmarried,single number of children: 2 household members: significant other Smoking Status: Never smoker alcohol intake: current caffeine: Yes Assessment & Plan Post-op Postoperative Procedures: Procedures Operation Date: 09/04/21 17:45 Actual Procedure Side Surgeon p Laparoscopic Cholecystectomy CONVERTED TO OPEN TO CONTROL BLEEDING Not Applicable Sudheer Rivera MD Postoperative status narrative: 75 year old woman with ITP postoperative day 3 status post laparoscopic converted to open cholecystectomy for control of bleeding. She is doing well and recovering from the operation appropriately. She received platelet transfusion last night there are no signs of ongoing bleeding -remove Bishop catheter -20 Lasix today -diet as tolerated -anticipate discharge home tomorrow with assistance -SCDs only chemical prophylaxis contraindicated -continue PT OT out of bed to chair Quality VTE Deep Vein Thrombosis/Pulmonary Embolism Present on Admission: No
--- NOTE | 2021-09-07 15:00 | PC.NURSE ---
Day shift note: Patient up OOB with PT, ambulated in hallway and room. Bishop Cath DC'd, voiding without any issues. Dressing changed to RLQ x 2, due to sanguinous saturation. Dr. Rivera made aware. No further orders. VSS and afebrile. Continue on RA. Call light within reach.
--- NOTE | 2021-09-07 19:13 | PC.NURSE ---
TRANSFERED TO ROOM 210
[2021-09-07] MEDS: NETARSUDIL LATANOPROST 1 EACH EYE-BOTH (20:57)
[2021-09-08 03:00] VITALS: O2SAT 97
[2021-09-08 06:00] VITALS: BP 135/79; PULSE 86; RESP 14; TEMP 37.3; O2SAT 93
[2021-09-08 06:01] LABS: Add Manual Diff / Slide Review NO; Basophils Absolute Auto 100 /uL (0-100); Basophils Percent Auto 0.6 % (0-2); Eosinophils Absolute Auto 200 /uL (0-450); Eosinophils Percent Auto 1.7 % (2-4); Hematocrit 31.3 % (36-46); Hemoglobin 10.8 g/dL (12.0-16.0); Lymphocytes Absolute Auto 1700 /uL (1100-4500); Lymphocytes Percent Auto 16.7 % (25-40); Mean Corpuscular HGB Conc 34.4 % (30-36); Mean Corpuscular Hemoglobin 31.7 PG (26-34); Mean Corpuscular Volume 92.2 fL (80-100); Monocytes Absolute Auto 500 /uL (0-900); Neutrophils Absolute Auto 7800 /uL (1500-7000); Platelet Count 72 X10^3/uL (150-400); Red Cell Distribution Width 14.8 % (11.6-14.8); White Blood Cell Count 10.3 X10^3/uL (4.5-11.0)
[2021-09-08] MEDS: LEVOTHYROXINE 112 MCG TABLET PO (06:05)
[2021-09-08] MEDS: OXYCODONE IR 10 MG TABLET PO ×2 (06:05→14:42)
[2021-09-08 06:09] LABS: Alanine Aminotransferase 78 IU/L (<35); Albumin 3.2 g/dL (3.5-5.0); Albumin Globulin Ratio 1.2 (1.0-2.8); Alkaline Phosphatase 83 U/L (38-126); Aspartate Aminotransferase 43 IU/L (14-36); BUN Creatinine Ratio 18.8 (6-22); Bilirubin Total 1.1 mg/dL (0.2-1.3); Blood Urea Nitrogen 15 mg/dL (7-17); Calcium 9.1 mg/dL (8.4-10.2); Carbon Dioxide 32 mmol/L (22-32); Chloride 97 mmol/L (98-107); Estimated Glomerular Filt Rate > 60.0 mL/min (>60); Globulin 2.7 g/dL (1.7-4.1); Glucose 95 mg/dL (80-110); HEMOLYSIS < 15 (0-50); Potassium 3.2 mmol/L (3.4-5.1); Sodium 136 mmol/L (137-145); Total Protein 5.9 g/dL (6.3-8.2)
--- NOTE | 2021-09-08 06:32 | PC.NURSE ---
a/o, voices needs. SBA ADL & mobility assistance. uses FWW to ambulate. midline/umbilicus incisions are clean, dry, well approximated, SOUP PERSON. declined offer to have dry gauze placed atop incisions. pain controlled thru the NOC by oxycodone 10mg PRN. anticipate d/c home today, lives [facility]/ .
--- NOTE | 2021-09-08 09:35 | OT.IP.TRT ---
Current Diagnoses Acute cholecystitis (09/04/21) Surgery Performed Operation Date: 09/04/21 17:45 Actual Procedures p Laparoscopic Cholecystectomy CONVERTED TO OPEN TO CONTROL BLEEDING(Not Applicable) - Sudheer Rivera MD Occupational Therapy Treatment Note M2 OT-IP Current Condition Start: 09/06/21 11:33 Freq: Status: Active Protocol: Document 09/06/21 09:06 [facility] (Rec: 09/06/21 11:47 [facility] [id number]) Occupational Therapy Current Condition Current Condition Evaluation Date 09/06/21 Treatment Diagnosis S/P laproscopic cholecystectomy Diagnosis Onset Date 09/04/21 Post Operative Precautions Abdominal Surgery Precautions Log Roll,Lifting Restrictions, Gait Belt above Incisional Area M3 OT- IP Subjective and Pain Start: 09/06/21 11:33 Freq: Status: Active Protocol: Document 09/08/21 09:37 [facility] (Rec: 09/08/21 09:41 [facility] [id number]) OT- Subjective Occupational Therapy Visit Type Type Treatment Note Visit Start Time 09:26 Visit Stop Time 09:35 Total Visit Minutes 9 Occupational Therapy Visit Comments Patient Comments Pt agreed to work with OT. Patient/Caregiver Goals TO go home. OT Pain Assessment Pain When Pain Assessed At Rest Pain Present Pain Present Denied Pain M4 OT- IP ADL's Start: 09/06/21 11:33 Freq: Status: Active Protocol: Document 09/08/21 09:37 [facility] (Rec: 09/08/21 09:41 [facility] [id number]) OT ADL-Dressing General Eval Lower Body Dressing Ability Contact Guard Assistance Comments OT Dressing Comments Went over use of marble worker and sock aid with pt . Pt state her Life Partner will be able to assist her. OT ADL-Toileting Comments OT Toileting Comments Suggested use of BSC, pt states feel will be able to manage at home walking into and out fo the bathroom. OT ADL-Bathing Comments OT Bathing Comments Pt states to have a chair for the shower. M5 OT- IP IADL's Start: 09/06/21 11:33 Freq: Status: Active Protocol: Document 09/06/21 09:06 [facility] (Rec: 09/06/21 11:47 [facility] [id number]) OT-Instrumental Activities of Daily Living Home Safety Awareness Home Safety Comments Pt has a supportive partner that is able to assist her with all her needs at home. Money Management Money Management Comments Prior, her life partner does the bills. M6 OT- IP Functional Cognition Start: 09/06/21 11:33 Freq: Status: Active Protocol: Document 09/08/21 09:37 [facility] (Rec: 09/08/21 09:41 [facility] [id number]) Cognitive Factors Limiting Selfcare Function Cognitive Comments Cognitive Assessment Comments Pt able to problem solve well andn anticipate her needs at home. M9 OT- IP Assessment and Plan Start: 09/06/21 11:33 Freq: Status: Active Protocol: Document 09/08/21 09:37 [facility] (Rec: 09/08/21 09:41 [facility] [id number]) OT Summary Assessment and Plan Potential Rehabilitation Potential Good Analytic Complexity at Evaluation Moderate Summary Progress Towards Goals Progressing Toward Goals Assessment Summary Able to go over ADL needs for pt and pt looking to go home today. Pt has a supportive Life Partner that will be home to assist her. Discharge Recommendations OT Discharge Recommendations Home with Assistance Home Equipment Needs fww, BSC, shower chair, LB dressing equipment Transportation Needs at Discharge Private Vehicle
[2021-09-08 10:00] VITALS: BP 123/79; PULSE 85; RESP 18; TEMP 36.8; O2SAT 94; O2SAT 98
[2021-09-08] MEDS: DOCUSATE 100 MG CAPSULE 200 MG PO (10:16)
[2021-09-08] MEDS: SERTRALINE 50 MG TABLET 100 MG PO (10:16)
[2021-09-08] MEDS: CYCLOBENZAPRINE 10 MG TABLET PO ×2 (10:16→14:42)
[2021-09-08] MEDS: CHLORTHALIDONE 25 MG TABLET PO (10:17)
[2021-09-08] MEDS: BRIMONIDINE 0.2% OPHTH 5 ML 1 DROPS EYE-BOTH (10:17)
[2021-09-08] MEDS: DORZOLAMIDE/TIMOLOL OPHTH 10 ML 1 DROPS EYE-BOTH (10:17)
--- NOTE | 2021-09-08 12:01 | PT.IPTN ---
Current Diagnoses Acute cholecystitis (09/04/21) Surgery Performed Operation Date: 09/04/21 17:45 Actual Procedures p Laparoscopic Cholecystectomy CONVERTED TO OPEN TO CONTROL BLEEDING(Not Applicable) - uSdheer Rivera MD Physical Therapy Treatment Note M2 PT-IP Current Condition Start: 09/05/21 17:12 Freq: NEEDED Status: Active Protocol: Document 09/05/21 14:30 [facility] (Rec: 09/05/21 17:26 [facility] [id number]) Physical Therapy Current Condition Current Condition Evaluation Date 09/05/21 Treatment Diagnosis s/p cholecystectomy; difficulty in walking Onset Date 09/04/21 M3 PT-IP Subjective Start: 09/05/21 17:12 Freq: NEEDED Status: Active Protocol: Document 09/08/21 11:37 R[facility] (Rec: 09/08/21 13:01 RBD [id number]) Subjective Physical Therapy Visit Type Type Treatment Note Visit Start Time 11:37 Visit Stop Time 12:01 Total Visit Minutes 24 Number of PAINTER BOTTOM Visits 2 Physical Therapy Visit Comments Patient Comments agreed to do PT Therapy Pain Assessment Pain When Pain Assessed After Treatment Pain Present Pain Present Pain Reported Location abdomen Scale Used Pain scale not stated Description Aching Pain Management Techniques Distraction,Modification of Treatment,Re-positioning, Timing of Activity with Medications M4 PT-IP Mobility and Gait Start: 09/05/21 17:12 Freq: NEEDED Status: Active Protocol: Document 09/08/21 11:37 RBD (Rec: 09/08/21 13:01 RBD [id number]) PT-Bed Mobility Assessment Rolling Type of Rolling Log Rolling,Roll to Left Level of Assist Contact Guard Assistance,1 Person Assistance Sit to Supine Sit to Supine Contact Guard Assistance, Minimal Assistance,1 Person Assistance Scooting Scooting to Edge of Bed Standby Assistance PT-Transfer Assessment Sit to and From Stand Sit to and from Stand Contact Guard Assistance,1 Person Assistance,Use of Upper Extremities Equipment Transfer Assistive Device Gait Belt,Front Wheeled Walker Orthotic/Prosthetic Devices or Brace: No Transfers Transfer Destination Bed,Chair Transfer Technique pt ambulated w/ FWW Transfer Ability Level of Assist Contact Guard Assistance, Minimal Assistance,1 Person Assistance,Use of Upper Extremities Comments Mobility Comments Pt sitting in chair and spouse in room upon arrival. Pt CGA for sit<>stand w/ FWW. Ambulated CGA w/FWW to door of room for wheelchair transfer to practice stairs. Pt CGA stand<>sit to wheelchair. CGA w/ PAINTER BOTTOM 3 stairs up and down. CGA w/ spouse 3 stairs up and down. Pt. CGA ambulated ~85 ft back to room w/ FWW. Pt. CGA for stand<>sit and log roll to bed. All needs within reach, including call light, and bed allarm on. Gait Assessment Gait Gait Assistance Required: Standby Assistance,Contact Guard Assist,1 Person Assist Distance (Feet) 85 Able to Maintain Weight Bearing Status Yes During Gait Assistive Devices Assistive Device Gait Belt,Front Wheeled Walker Orthotic/Prosthetic Devices or Brace: No Gait Deviations General Gait Pattern Decreased Stride Length, Decreased Feet Clearance Factors Limiting Gait Function Factors Limiting Gait Function Decreased Activity Tolerance, Decreased Strength,Limited Range of Motion,Pain,Poor Balance,Poor Safety Awareness Comments Gait Comments Please refer to mobility section for details. Stair Climbing Assessment Evaluation Level of Assist On Stairs Contact Guard Assistance,1 Person Assistance Devices Stair Climbing Assistive Devices Right Railing Technique/Endurance Stair Climbing Direction Ascend and Descend Stair Climbing Technique Step to Step Number of Steps Climbed 3 Stair Climbing Set # Repetitions (reps) 2 Comments Stair Climbing Comments Pt ascended/descended 3 steps x2 w/ R rail w/ CGA and cues provided by PAINTER BOTTOM on first set and CGA and cues by spouse on second step utilizing step to pattern. No LOB, pt and spouse state they feel safe to complete stairs entering home. PT-Balance Assessment Sitting Balance and Reactions Static Sitting Balance Ability Good Dynamic Sitting Balance Ability Good Standing Balance and Reactions Static Standing Balance Ability Good Dynamic Standing Balance Ability Good Device Used FWW M5 PT-IP Objective Assessments Start: 09/05/21 17:12 Freq: NEEDED Status: Active Protocol: Document 09/05/21 14:30 [facility] (Rec: 09/05/21 17:26 AB [id number]) Orientation Orientation/Cognition Level of Alertness Alert Orientation Name,Place,Situation Language Function Ability No Deficits Noted Safety Awareness Decreased Safety Awareness Memory Description No Deficits Noted Gross Range of Motion Lower Extremity ROM Assessment Within Functional Limits Strength Lower Extremity Strength Hip 4-/5 Knee 4-/5 Coordination Assessment Gross Coordination Gross Coordination WNL Sensation Assessment Sensation Gross Sensation WNL Muscle Tone Muscle Tone WNL Yes M6 PT-IP Treatment Start: 09/05/21 17:12 Freq: NEEDED Status: Active Protocol: Document 09/08/21 11:37 RBD (Rec: 09/08/21 13:01 RBD [id number]) Physical Therapy Treatment Education Education Provided Precautions,Safety Other Treatments Other Treatment Performed Conducted caregiver training w / pts spouse M7 PT-IP Assessment and Plan Start: 09/05/21 17:12 Freq: NEEDED Status: Active Protocol: Document 09/08/21 11:37 RBD (Rec: 09/08/21 13:01 RBD [id number]) PT Summary Assessment and Plan Potential Rehabilitation Potential Good Status of Condition at Evaluation Evolving Summary Impairments Pain,ROM,Strength,Balance, Coordination,Sensation,Tone, Cognition,Bed Mobility, Transfers,Gait,Activity Tolerance Progress Towards Goals Progressing Toward Goals Assessment Summary Spouse present for entire treatment. Patient and spouse completed caregiver training for safe ambulation and stair management at home. Goals Bed Mobility Goal Independent Transfer Goal Independent,Front Wheeled Walker Gait Goal Independent,Front Wheel Walker Gait Distance 200 Other Goals improve ambulation without AD SBA 200 ft up/down 2 steps without rails SBA Days to Meet Goals 10 Frequency of Treatment Frequency Of Treatment Once a Day Treatment Plan Physical Therapy Treatment Plan Bed Mobility Training,Transfer Training,Gait Training, Therapeutic Exercise,Balance Retraining,Post Op Education, Discharge Planning,Hot or Cold Pack,Neuromuscular Re-ed, Coordination Retraining,Manual Therapy Precautions Abdominal Surgery Precautions Log Roll,Lifting Restrictions, Gait Belt above Incisional Area Recommendations To Nursing Amount of Assist Needed 1 Person Assist Discharge Recommendations PT Discharge Recommendations Home with Assistance,Home Health Equipment Needed for Home Before FWW Discharge Transportation Needs at Discharge Private Vehicle
[2021-09-08] MEDS: POTASSIUM CHLORIDE 20 MEQ/15 ML UDC 40 MEQ PO (12:25)
--- NOTE | 2021-09-08 13:33 | PM.DS.1 ---
History of Present Illness History of Present Illness Date Patient Seen: 09/08/21 Time Patient Seen: 13:33 Chief complaint: Poss Cardiac issues- sent by [facility] EMT's Narrative: 75 y.o woman developed epigastric pain and presented to [facility] today. Cardiac workup was negative. On further evaluation labs were significant for WBC 12, TBil 5.4, and elevated LFTs. US, CT and MRCP were performed that demonstrate cholelithiasis and wall thickening there is no common bile duct stone. Her abdominal pain has improved since admission but not yet resolved. Associated nausea no emesis or fever. No anticoagulation. No anesthetic issues with previous surgery. Nonsmoker. Relevant perioperative history 1. Annamaria fundoplication 2. ITP Discharge Providers Provider Date of admission: 09/04/21 17:02 Discharge Date: 09/08/21 Primary care physician: Roddy Manning MD Consults: 09/05/21 09:27 Consult to Occupational Therapy Evaluate & Treat Comment: Physician Instructions: Evaluate and treat Consult to Physical Therapy Evaluate & Treat Comment: Physician Instructions: Evaluate and Treat Discharge provider: Sudheer Rivera MD Summary Hospital Course Discharge Diagnosis: Acute cholecystitis Open cholecystectomy Acute blood loss anemia Thrombocytopenia Immune Thromcytopenia (ITP) Hospital Course: Almaz Llamas is a 75 year old woman with ITP underwent a cholecystectomy for acute cholecystitis. Laparoscopic was converted to open cholecystectomy for control of bleeding. Estimated blood loss 2 litters. Recieved 4 units PRBCs and plts. Remained hemodynamically stable with stable blood counts. At discharge vitals are within normal limits, intra abdominal drain has been removed, tolerant of regular diet and ambulatory. Status at Discharge Cognitive/behavioral status at discharge: oriented Functional status at discharge: independent ambulation Overall status at discharge: patient is progressing back to baseline Time Spent with Patient Time spent: Greater than 30 minutes Exam Vital Signs (past 8 hours): - 09/08/21 06:00 09/08/21 10:00 Temperature 99.2 F 98.3 F Pulse Rate 86 85 Respiratory Rate 14 18 Blood Pressure 135/79 123/79 Pulse Oximetry 93 98 Oxygen Delivery Method Room Air Oxygen Flow Rate 0 Narrative Exam Narrative: Gen-Adult woman alert and oriented Skin-without jaundice Abdomen-Soft. Subcostal incision CDI john. Ext-Warm Objective Labs Result Diagrams: 09/08/21 05:45 09/08/21 05:45 Labs: Laboratory Results - last 24 hr 09/08/21 09/08/21 05:45 05:45 WBC 10.3 RBC 3.40 L Hgb 10.8 L Hct 31.3 L MCV 92.2 MCH 31.7 MCHC 34.4 RDW 14.8 Plt Count 72 L Neut % (Auto) 76.0 H Lymph % (Auto) 16.7 L [place] % (Auto) 5.0 Eos % (Auto) 1.7 L Baso % (Auto) 0.6 Neut # (Auto) 7800 H Lymph # (Auto) 1700 [place] # (Auto) 500 Eos # (Auto) 200 Baso # (Auto) 100 Sodium 136 L Potassium 3.2 L Chloride 97 L Carbon Dioxide 32 BUN 15 Creatinine 0.80 Estimated GFR > 60.0 BUN/Creatinine Ratio 18.8 Glucose 95 Calcium 9.1 Total Bilirubin 1.1 AST 43 H ALT 78 H Alkaline Phosphatase 83 Total Protein 5.9 L Albumin 3.2 L Globulin 2.7 Albumin/Globulin Ratio 1.2 PFSH Medical History Arthritis Atrophic vaginitis Benign microscopic hematuria Cystocele History of skin cancer Hypertension (01/05/15) Hypothyroidism (01/05/15) Inflammatory bowel disease Rectocele Recurrent UTI Scar of conjunctiva of right eye Scoliosis Screening for breast cancer Surgical History H/O thyroidectomy History of hip replacement History of repair of hiatal hernia Status post glaucoma surgery Status post Annamaria fundoplication Family History Father Coronary artery disease Gout Hypertension Social History marital status: unmarried,single number of children: 2 household members: significant other Smoking Status: Never smoker alcohol intake: current caffeine: Yes Discharge Plan Discharge Plan Patient Disposition: Home Provider Discharge Comment: -Okay to shower -Do not submerge wounds in water until seen in follow-up. -No lifting >20 lbs x 4 weeks. -Walking only for exercise for 4 weeks. -No driving while taking narcotics. Discharge orders & Medications Prescriptions: New docusate sodium [Colace] 100 mg capsule 100 mg PO BID Qty: 30 0RF oxycodone 5 mg tablet See Rx Instructions .ROUTE .COMPLEX PRN (Reason: pain) Qty: 30 0RF Rx Instructions: 1-2 tabs every 6 hrs as needed for pain Continued sertraline 100 MG tablet 100 mg PO QAM Qty: 90 3RF chlorthalidone 25 MG tablet 25 mg PO QAM Qty: 90 3RF irbesartan 150 MG tablet 150 mg PO QAM Qty: 90 3RF vitamin B complex [B Complex-Vitamin B12] Tablet 1 tab PO QAM 0RF Rocklatan 0.02-0.005 % drops 1 drp ophthalmic (eye) QPM 0RF simvastatin 40 MG tablet 40 mg PO DAILY 0RF estradiol 0.01 % (0.1 mg/gram) cream 1 g vaginal 2XW 0RF brimonidine 0.2 % drops 1 drp EYE-BOTH QAM AND QPM 0RF dorzolamide-timolol 22.3-6.8 mg/mL drops 1 drp EYE-BOTH QAM AND QPM 0RF oxycodone-acetaminophen 5-325 mg tablet 2 tab PO Q4H PRN (Reason: pain) Qty: 30 0RF Rx Instructions: Take 1 or 2 tablets every 4 hours NEEDED for back pain due to scoliosis levothyroxine 112 mcg tablet 112 mcg PO QAM 0RF Follow up/Referrals: Sudheer Rivera MD [Physician] - None (You may have your john removed by your primary care doctor in 1 week time or I can do this. If they remove them then please come see me in the office in 2 weeks from now.) Diet/Activity/Treatments Diet: Diet as Tolerated Skin/Wound/Dressing Care Report to your healthcare provider any signs of infection, such as:: chills, fever, increased pain, unusual drainage and unusual redness Dressing: Remove dressing over old drain site in a week. [place] can be removed at the clinic if they feel comfortable doing so. If not make an appointment to see Dr. Rivera in 1-2 weeks. Visit Report/Discharge Packet Instructions: DI for Open Cholecystectomy, DI for Constipation, DI for Prescription Opioid Use, [facility]: Wound Care Discharge Data Primary Care Provider: Roddy Manning VTE Deep Vein Thrombosis/Pulmonary Embolism Present on Admission: No
--- NOTE | 2021-09-08 19:35 | PC.NURSE ---
Discharge: Pt feels ready to d/c to home. Seen by Dr. Rivera and he gave pt d/c instructions. Rx has already been esent. Dressing to drain site was changed prior to leaving. Tolerates diet w/out problems. Minimal pain. Vds w/out diff. Reviewed d/c packet. Rx has already been esent. Priority load pass given. Questions answered. Pt d/c to home via auto with SO.
== END 2021-09-08 14:40 | disposition home or self-care (01) | DRG 415 ==
LOC: ED 16:46 → AC 17:10 → ICU 09-05 03:44 → AC 09-05 10:24 → ICU 09-05 10:24 → AC 09-07 19:15
PROVIDERS: Internal Medicine; Admitting Provider Surgery; Emergency Provider Emergency Medicine; PCP Family Medicine; Referring Provider Emergency Medicine; Visit Provider Surgery
PROC: 0FT44ZZ Resection of Gallbladder, Percutaneous Endoscopic Approach (ICD-10-PCS; CPT 47562; principal; 2021-09-04 17:45)
DX: K81.0 Acute cholecystitis (principal); K91.61 Intraoperative hemorrhage and hematoma of a digestive system organ or structure complicating a digestive system procedure; D62 Acute posthemorrhagic anemia; D69.3 Immune thrombocytopenic purpura; E80.6 Other disorders of bilirubin metabolism; I10 Essential (primary) hypertension; E03.9 Hypothyroidism, unspecified; Z20.822 Contact with and (suspected) exposure to COVID-19
CPT/HCPCS: 36415; 36430; 47600; 71045; 74177; 74181; 76705; 80053; 81001; 81003; 82248; 82330; 83690; 83735; 84484; 85007; 85025; 85027; 85610; 85730; 86850; 86900; 86901; 86945; 87635; 87797; 93005; 93010; 96361; 96365; 97116; 97162; 97166; 97530; 97535; 99222; 99284; 99285; C9803; P9016; J0696; J1100; J1170; J1940; J2405; J2543; J2704; J3010; P9035; P9041

== ENCOUNTER → 2021-10-23 10:00 | Outpatient (CLI) | payer MEDICARE, SELFPAY ==
[2021-09-04 17:16] VITALS: BMI 25.7
--- NOTE | 2021-10-23 10:03 | DI.RAD.S_ITS ---
PROCEDURE: XR LUMBAR SPINE MIN 4V INDICATIONS: BACK PAIN TECHNIQUE: 5 views of the lumbar spine were acquired, including bilateral oblique views. COMPARISON: [facility], CT, CT ABDOMEN PELVIS W CON, 09/04/2021, 9:39. FINDINGS: Bones: 5 nonrib-bearing vertebrae are present. Severe rotatory dextro curvature, centered at L3. Extensive degenerative change. No vertebral body compression fractures. No suspicious bony lesions. Soft tissues: Overlying bowel gas pattern is normal. No suspicious soft tissue calcifications. Oblique images: No pars defects. IMPRESSION: Extensive degenerative change with severe rotatory dextroscoliosis. No evidence acute bony abnormality of the lumbar spine. If clinical suspicion and/or symptoms persist, further assessment with repeat plain films, or advanced imaging (e.g., CT, MRI, or bone scan) may be helpful for further assessment. Dictated by: Loc Stewart M.D. on 10/23/2021 at 12:55 Approved by: Loc Stewart M.D. on 10/23/2021 at 12:57
== END ==
PROVIDERS: PCP Family Medicine; Referring Provider Physical Medicine & Rehabilitation; Visit Provider Physical Medicine & Rehabilitation
DX: M41.25 Other idiopathic scoliosis, thoracolumbar region (principal); M16.12 Unilateral primary osteoarthritis, left hip; M47.26 Other spondylosis with radiculopathy, lumbar region; M54.9 Dorsalgia, unspecified
CPT/HCPCS: 20611; 72110; 99215; J0702

== ENCOUNTER → 2021-11-01 12:38 | Outpatient (CLI) | payer MEDICARE, SELFPAY ==
[2021-09-04 17:16] VITALS: BMI 25.7
[2021-11-01 19:05] LABS: Add Manual Diff / Slide Review NO; Basophils Absolute Auto 0 /uL (0-100); Basophils Percent Auto 0.6 % (0-2); Eosinophils Absolute Auto 200 /uL (0-450); Eosinophils Percent Auto 2.9 % (2-4); Hematocrit 42.3 % (36-46); Hemoglobin 14.4 g/dL (12.0-16.0); Lymphocytes Absolute Auto 1800 /uL (1100-4500); Lymphocytes Percent Auto 23.8 % (25-40); Mean Corpuscular HGB Conc 33.9 % (30-36); Mean Corpuscular Hemoglobin 31.8 PG (26-34); Mean Corpuscular Volume 93.9 fL (80-100); Monocytes Absolute Auto 600 /uL (0-900); Monocytes Percent Auto 7.6 % (3-14); Neutrophils Absolute Auto 5000 /uL (1500-7000); Neutrophils Percent Auto 65.1 % (50-75); Platelet Count 115 X10^3/uL (150-400); Red Blood Cell Count 4.51 X10^6/uL (4.0-5.2); Red Cell Distribution Width 14.9 % (11.6-14.8); White Blood Cell Count 7.7 X10^3/uL (4.5-11.0)
== END ==
PROVIDERS: PCP Family Medicine; Visit Provider Orthopaedic Surgery Hand Surgery
DX: I10 Essential (primary) hypertension (principal); M19.041 Primary osteoarthritis, right hand; M19.042 Primary osteoarthritis, left hand; Z01.812 Encounter for preprocedural laboratory examination
CPT/HCPCS: 85025

== ENCOUNTER → 2022-03-27 11:46 | Outpatient (CLI) | payer MEDICARE, SELFPAY ==
[2021-09-04 17:16] VITALS: BMI 25.7
--- NOTE | 2022-03-27 | DI.MG.S_ITS ---
BILATERAL DIGITAL SCREENING MAMMOGRAM 3D/2D WITH CAD: 03/27/2022 CLINICAL: Routine screening. Comparison is made to exams dated: 03/10/2021 mammogram, 03/01/2020 mammogram, and 01/28/2019 mammogram - [facility]. There are scattered fibroglandular elements in both breasts. Current study was also evaluated with a Computer Aided Detection (CAD) system. There are benign calcifications in both breasts. There also is a biopsy clip in the left breast. No significant masses, calcifications, or other findings are seen in either breast. There has been no significant interval change. IMPRESSION: BENIGN There is no mammographic evidence of malignancy. A 1 year screening mammogram is recommended. Based on the Tyrer Cuzick model (a risk assessment model) the patient's lifetime risk is 2.3% and her 10 year risk is 0.0%. According to the ACR, ACS, and NCCN guidelines, an annual breast MRI exam along with mammogram is recommended if the patient's lifetime risk is 20% or greater. This exam was interpreted at Station ID: [id number]. NOTE: For mammograms, a report in lay terms will be sent to the patient. Approximately 15% of breast malignancies will not be visualized mammographically. In the management of a palpable breast mass, a negative mammogram must not discourage biopsy of a clinically suspicious lesion. Electronically Signed By: Ashlyn arriaga/triston:03/27/2022 16:41:54 letter sent: Normal Exam ACR BI-RADS Category 2: Benign Finding(s) [id number]
--- NOTE | 2022-03-27 | DI.MRI.S_ITS ---
PROCEDURE: MR HIP LT WO CON INDICATIONS: Pain in left hip TECHNIQUE: Noncontrast coronal T1 spin echo and STIR through the bony pelvis. Coronal and axial T2 fast spin echo with fat saturation, sagittal T1 spin echo, and oblique axial T2 fast spin echo with fat saturation through the hip. COMPARISON: None. FINDINGS: Image quality: Excellent. Bones and joints: Patient is status post right total hip arthroplasty with significant susceptibility artifacts. Moderate to severe left hip joint osteoarthritic changes are seen with superior joint space narrowing, extensive subchondral sclerosis and edema as well as marginal osteophyte formation. No fracture or dislocation. No suspicious intraosseous lesion. No avascular necrosis of the femoral heads. The visualized lower lumbar spine appears normally aligned. Small amount of hip joint effusion is seen, no gross loose bodies. Tendons and ligaments: The gluteus medius and minimus tendinosis at their insertions on greater trochanter is seen., without associated muscle atrophy. The nearby proximal iliotibial band also appears intact. The iliopsoas tendon appears intact, without adjacent bursal fluid collections or evidence for impingement syndrome. The origin of the hamstring tendon is intact at the ischial tuberosity, as well as the associated sacrotuberous ligament. The straight and reflected heads of the rectus femoris muscle origin appear intact, as well as the conjoint tendon. The ligamentum teres appears intact where visualized. Labrum and cartilage: Global signal abnormality throughout left hip labrum is noted suggestive of extensive left hip labral tear. Diffuse thinning of articulating cartilages of femoral head is also noted. Soft tissues: Visualized muscles demonstrate normal bulk and internal signal. Quadratus femoris muscle demonstrates no internal edema to suggest ischiofemoral impingement. The proximal sciatic neurovascular bundle appears normal adjacent to the hamstring tendons. No free pelvic fluid. Bladder wall thickness is normal. Genitourinary structures and bowel loops appear normal where visualized. IMPRESSION: 1. Severe left hip joint osteoarthritis. No fracture or dislocation. No evidence of avascular necrosis of femoral head. Prior right total hip arthroplasty. 2. Left distal gluteus medius and minimus tendinosis at their insertion on greater trochanter. No other muscle or tendon signal abnormality. 3. Suggestion of extensive left hip labral tear. Dictated by: Yefri Sigala M.D. on 03/27/2022 at 13:55 Approved by: Yefri Sigala M.D. on 03/27/2022 at 14:48
== END ==
PROVIDERS: PCP Family Medicine; Referring Provider Neurological Surgery; Visit Provider Family Medicine
DX: Z12.31 Encounter for screening mammogram for malignant neoplasm of breast (principal); M25.552 Pain in left hip; M16.12 Unilateral primary osteoarthritis, left hip; Z96.641 Presence of right artificial hip joint
CPT/HCPCS: 73721; 77063; 77067

== ENCOUNTER → 2022-05-21 10:54 | Outpatient (CLI) | payer MEDICARE, SELFPAY ==
[2022-05-09 13:01] VITALS: BMI 25.7
== END ==
PROVIDERS: PCP Family Medicine; Visit Provider Family Medicine
DX: N23 Unspecified renal colic (principal)
CPT/HCPCS: 87077; 87086; 87186

== ENCOUNTER → 2022-06-27 10:45 | Outpatient (CLI) | payer MEDICARE, SELFPAY ==
[2022-06-25 12:22] VITALS: BMI 25.7
[2022-06-27 20:22] LABS: Add Manual Diff / Slide Review NO; Basophils Absolute Auto 0 /uL (0-100); Basophils Percent Auto 0.7 % (0-2); Eosinophils Absolute Auto 200 /uL (0-450); Eosinophils Percent Auto 2.9 % (2-4); Hemoglobin 13.9 g/dL (12.0-16.0); Lymphocytes Absolute Auto 1300 /uL (1100-4500); Lymphocytes Percent Auto 19.8 % (25-40); Mean Corpuscular HGB Conc 33.9 % (30-36); Mean Corpuscular Hemoglobin 31.8 PG (26-34); Monocytes Absolute Auto 500 /uL (0-900); Monocytes Percent Auto 7.2 % (3-14); Neutrophils Absolute Auto 4600 /uL (1500-7000); Neutrophils Percent Auto 69.4 % (50-75); Platelet Count 84 X10^3/uL (150-400); Red Blood Cell Count 4.36 X10^6/uL (4.0-5.2); White Blood Cell Count 6.6 X10^3/uL (4.5-11.0)
[2022-06-27 20:32] LABS: Hemoglobin A1C% w Est Avg Glu 5.8 % (4.0-6.0)
[2022-06-27 20:39] LABS: Alanine Aminotransferase 15 IU/L (<35); Albumin 4.3 g/dL (3.5-5.0); Albumin Globulin Ratio 1.5 (1.0-2.8); Alkaline Phosphatase 66 U/L (38-126); Aspartate Aminotransferase 24 IU/L (14-36); BUN Creatinine Ratio 30.9 (6-22); Bilirubin Total 0.7 mg/dL (0.2-1.3); Blood Urea Nitrogen 25 mg/dL (7-17); Calcium 9.1 mg/dL (8.4-10.2); Carbon Dioxide 29 mmol/L (22-32); Chloride 101 mmol/L (98-107); Cholesterol 183 mg/dL (140-199); Estimated Glomerular Filt Rate > 60 mL/min (>60); Globulin 2.9 g/dL (1.7-4.1); Glucose 101 mg/dL (80-110); HDL Cholesterol 70 mg/dL (40-60); HEMOLYSIS 15 (0-50); LDL Cholesterol Calculated 89 mg/dL (<100); Potassium 3.7 mmol/L (3.4-5.1); Sodium 139 mmol/L (137-145); Total Protein 7.2 g/dL (6.3-8.2); Triglycerides 119 mg/dL (35-150)
[2022-06-27 21:03] LABS: TSH w/ Reflex to FT4 0.97 uIU/mL (0.47-4.68)
[2022-06-27 21:06] LABS: Bilirubin Urine UA NEGATIVE (NEGATIVE); Color Urine UA YELLOW; Glucose Urine UA NEGATIVE (Negative); Ketones Urine UA NEGATIVE (NEGATIVE); Leukocyte Esterase Urine UA 3+ (NEGATIVE); Nitrite Urine UA NEGATIVE (Negative); Occult Blood Urine UA 3+ (Negative); Protein Urine UA 1+ (Negative); Specific Gravity Urine UA 1.015 (1.000-1.035); Urobilinogen Urine UA 0.2 E.U./dL (0.2)
[2022-06-27 21:15] LABS: Appearance Urine UA CLOUDY
[2022-06-27 21:33] LABS: Bacteria Urine Many (>30); Culture Indicated Urine Cult Not Indicated; RBC Urine None Seen (0-5/HPF); Squamous Epithelial Cell Urine 5-10 /HPF (0-5/HPF); WBC Urine 5-10/HPF (0-5/HPF)
== END ==
PROVIDERS: PCP Family Medicine; Visit Provider Family Medicine
DX: I10 Essential (primary) hypertension (principal); Z86.39 Personal history of other endocrine, nutritional and metabolic disease; N39.0 Urinary tract infection, site not specified; D69.3 Immune thrombocytopenic purpura; Z01.818 Encounter for other preprocedural examination; Z86.73 Personal history of transient ischemic attack (TIA), and cerebral infarction without residual deficits; E03.9 Hypothyroidism, unspecified; E78.2 Mixed hyperlipidemia; Z01.812 Encounter for preprocedural laboratory examination
CPT/HCPCS: 80053; 80061; 81001; 83036; 84443; 85025; 87070; 87086; 87797

== ENCOUNTER → 2022-11-26 14:33 | Outpatient (CLI) | payer MEDICARE, SELFPAY ==
[2022-06-25 12:22] VITALS: BMI 25.7
[2022-11-26 21:17] LABS: BUN Creatinine Ratio 28.7 (6-22); Blood Urea Nitrogen 25 mg/dL (7-17); Calcium 8.6 mg/dL (8.4-10.2); Carbon Dioxide 27 mmol/L (22-32); Chloride 102 mmol/L (98-107); Estimated Glomerular Filt Rate > 60 mL/min (>60); Glucose 99 mg/dL (80-110); HEMOLYSIS < 15 (0-50); Potassium 3.8 mmol/L (3.4-5.1); Sodium 138 mmol/L (137-145)
[2022-11-26 21:22] LABS: Add Manual Diff / Slide Review NO; Basophils Absolute Auto 0 /uL (0-100); Basophils Percent Auto 0.5 % (0-2); Eosinophils Absolute Auto 200 /uL (0-450); Eosinophils Percent Auto 2.7 % (2-4); Hematocrit 37.9 % (36-46); Hemoglobin 12.5 g/dL (12.0-16.0); Lymphocytes Absolute Auto 1800 /uL (1100-4500); Lymphocytes Percent Auto 26.1 % (25-40); Mean Corpuscular Hemoglobin 28.4 PG (26-34); Mean Corpuscular Volume 86.1 fL (80-100); Monocytes Absolute Auto 500 /uL (0-900); Monocytes Percent Auto 7.6 % (3-14); Neutrophils Absolute Auto 4300 /uL (1500-7000); Neutrophils Percent Auto 63.1 % (50-75); Platelet Count 85 X10^3/uL (150-400); Red Cell Distribution Width 15.4 % (11.6-14.8); White Blood Cell Count 6.9 X10^3/uL (4.5-11.0)
== END ==
PROVIDERS: PCP Physician Assistant; Visit Provider Family Medicine
DX: I10 Essential (primary) hypertension (principal); D69.3 Immune thrombocytopenic purpura; E03.9 Hypothyroidism, unspecified; Z86.73 Personal history of transient ischemic attack (TIA), and cerebral infarction without residual deficits
CPT/HCPCS: 80048; 85025

== ENCOUNTER → 2023-01-15 09:34 | Outpatient (CLI) | payer MEDICARE, SELFPAY ==
[2022-06-25 12:22] VITALS: BMI 25.7
[2023-01-15 19:45] LABS: Cholesterol 168 mg/dL (140-199); HDL Cholesterol 81 mg/dL (40-60); LDL Cholesterol Calculated 68 mg/dL (<100); Triglycerides 93 mg/dL (35-150)
[2023-01-15 19:49] LABS: Add Manual Diff / Slide Review NO; Basophils Absolute Auto 0 /uL (0-100); Basophils Percent Auto 0.8 % (0-2); Eosinophils Absolute Auto 200 /uL (0-450); Hematocrit 39.2 % (36-46); Hemoglobin 13.2 g/dL (12.0-16.0); Lymphocytes Absolute Auto 1400 /uL (1100-4500); Lymphocytes Percent Auto 24.6 % (25-40); Mean Corpuscular HGB Conc 33.6 % (30-36); Mean Corpuscular Hemoglobin 29.6 PG (26-34); Mean Corpuscular Volume 88.1 fL (80-100); Monocytes Absolute Auto 400 /uL (0-900); Monocytes Percent Auto 7.8 % (3-14); Neutrophils Absolute Auto 3600 /uL (1500-7000); Neutrophils Percent Auto 63.8 % (50-75); Platelet Count 90 X10^3/uL (150-400); Red Blood Cell Count 4.45 X10^6/uL (4.0-5.2); Red Cell Distribution Width 17.6 % (11.6-14.8); White Blood Cell Count 5.7 X10^3/uL (4.5-11.0)
[2023-01-15 20:10] LABS: TSH w/ Reflex to FT4 0.94 uIU/mL (0.47-4.68)
== END ==
PROVIDERS: PCP Family Medicine; Visit Provider Family Medicine
DX: I10 Essential (primary) hypertension (principal); E78.2 Mixed hyperlipidemia; D69.3 Immune thrombocytopenic purpura; E03.9 Hypothyroidism, unspecified
CPT/HCPCS: 80061; 84443; 85025

== ENCOUNTER → 2023-04-24 12:56 | Outpatient (CLI) | payer MEDICARE, SELFPAY ==
[2022-06-25 12:22] VITALS: BMI 25.7
--- NOTE | 2023-04-24 12:57 | DI.MG.S_ITS ---
BILATERAL DIGITAL SCREENING MAMMOGRAM 3D/2D WITH CAD: 04/24/2023 CLINICAL: Routine screening. Comparison is made to exams dated: 03/27/2022 mammogram, 03/10/2021 mammogram, and 03/01/2020 mammogram - [facility]. There are scattered areas of fibroglandular density in both breasts (category b / 25%-50% glandular tissue). Current study was also evaluated with a Computer Aided Detection (CAD) system. There are benign calcifications in both breasts. There also is a biopsy clip in the left breast. No significant masses, calcifications, or other findings are seen in either breast. There has been no significant interval change. IMPRESSION: BENIGN There is no mammographic evidence of malignancy. A 1 year screening mammogram is recommended. Based on the Tyrer Cuzick model (a risk assessment model) the patient's lifetime risk is 2.1% and her 10 year risk is 0.0%. According to the ACR, ACS, and NCCN guidelines, an annual breast MRI exam along with mammogram is recommended if the patient's lifetime risk is 20% or greater. This exam was interpreted at Station ID: [id number]. NOTE: For mammograms, a report in lay terms will be sent to the patient. Approximately 15% of breast malignancies will not be visualized mammographically. In the management of a palpable breast mass, a negative mammogram must not discourage biopsy of a clinically suspicious lesion. Electronically Signed By: Ry ruff/triston:04/24/2023 16:13:26 letter sent: Normal Exam ACR BI-RADS Category 2: Benign Finding(s) [id number]
== END ==
PROVIDERS: PCP Family Medicine; Referring Provider Family Medicine; Visit Provider Family Medicine
DX: Z12.31 Encounter for screening mammogram for malignant neoplasm of breast (principal)
CPT/HCPCS: 77063; 77067

== ENCOUNTER → 2023-08-07 10:44 | Outpatient (CLI) | payer MEDICARE, SELFPAY ==
[2022-06-25 12:22] VITALS: BMI 25.7
[2023-08-07 11:48] LABS: Add Manual Diff / Slide Review NO; Basophils Absolute Auto 0 /uL (0-100); Basophils Percent Auto 0.7 % (0-2); Eosinophils Absolute Auto 0 /uL (0-450); Eosinophils Percent Auto 0.7 % (2-4); Hematocrit 40.2 % (36-46); Hemoglobin 13.4 g/dL (12.0-16.0); Lymphocytes Absolute Auto 1800 /uL (1100-4500); Lymphocytes Percent Auto 24.6 % (25-40); Mean Corpuscular HGB Conc 33.4 % (30-36); Mean Corpuscular Hemoglobin 31.2 PG (26-34); Mean Corpuscular Volume 93.6 fL (80-100); Monocytes Absolute Auto 500 /uL (0-900); Monocytes Percent Auto 6.6 % (3-14); Neutrophils Absolute Auto 4900 /uL (1500-7000); Neutrophils Percent Auto 67.4 % (50-75); Platelet Count 82 X10^3/uL (150-400); Red Blood Cell Count 4.29 X10^6/uL (4.0-5.2); Red Cell Distribution Width 15.3 % (11.6-14.8); White Blood Cell Count 7.3 X10^3/uL (4.5-11.0)
== END ==
PROVIDERS: PCP Family Medicine; Referring Provider Dermatology MOHS-Micrographic Surgery; Visit Provider Dermatology MOHS-Micrographic Surgery
DX: I10 Essential (primary) hypertension (principal); Z01.818 Encounter for other preprocedural examination; D69.3 Immune thrombocytopenic purpura
CPT/HCPCS: 36415; 85025

== ENCOUNTER → 2024-02-14 09:33 | Outpatient (CLI) | payer MEDICARE, SELFPAY ==
[2022-06-25 12:22] VITALS: BMI 25.7
[2024-02-14 19:17] LABS: Add Manual Diff / Slide Review NO; Basophils Absolute Auto 0 /uL (0-100); Basophils Percent Auto 0.3 % (0-2); Eosinophils Absolute Auto 100 /uL (0-450); Eosinophils Percent Auto 1.3 % (2-4); Hematocrit 42.7 % (36-46); Hemoglobin 14.2 g/dL (12.0-16.0); Lymphocytes Absolute Auto 2000 /uL (1100-4500); Mean Corpuscular HGB Conc 33.3 % (30-36); Mean Corpuscular Hemoglobin 31.9 PG (26-34); Mean Corpuscular Volume 95.9 fL (80-100); Monocytes Absolute Auto 700 /uL (0-900); Monocytes Percent Auto 6.4 % (3-14); Neutrophils Absolute Auto 7400 /uL (1500-7000); Platelet Count 68 X10^3/uL (150-400); Red Blood Cell Count 4.45 X10^6/uL (4.0-5.2); Red Cell Distribution Width 14.2 % (11.6-14.8); White Blood Cell Count 10.2 X10^3/uL (4.5-11.0)
[2024-02-14 19:19] LABS: Alanine Aminotransferase 17 IU/L (<35); Albumin 4.1 g/dL (3.5-5.0); Albumin Globulin Ratio 1.6 (1.0-2.8); Alkaline Phosphatase 75 U/L (38-126); Aspartate Aminotransferase 28 IU/L (14-36); BUN Creatinine Ratio 25.8 (6-22); Bilirubin Total 1.1 mg/dL (0.2-1.3); Blood Urea Nitrogen 24 mg/dL (7-17); Calcium 8.8 mg/dL (8.4-10.2); Carbon Dioxide 28 mmol/L (22-32); Chloride 106 mmol/L (98-107); Cholesterol 154 mg/dL (140-199); Estimated Glomerular Filt Rate > 60 mL/min (>60); Globulin 2.5 g/dL (1.7-4.1); Glucose 104 mg/dL (80-110); HDL Cholesterol 99 mg/dL (40-60); HEMOLYSIS 40 (0-50); LDL Cholesterol Calculated 36 mg/dL (<100); Potassium 3.8 mmol/L (3.4-5.1); Sodium 139 mmol/L (137-145); Total Protein 6.6 g/dL (6.3-8.2); Triglycerides 96 mg/dL (35-150)
[2024-02-14 19:51] LABS: TSH w/ Reflex to FT4 1.35 uIU/mL (0.47-4.68)
== END ==
PROVIDERS: PCP Family Medicine; Visit Provider Family Medicine
DX: E78.2 Mixed hyperlipidemia (principal); E03.9 Hypothyroidism, unspecified; R19.7 Diarrhea, unspecified; Z86.73 Personal history of transient ischemic attack (TIA), and cerebral infarction without residual deficits; I10 Essential (primary) hypertension; F32.4 Major depressive disorder, single episode, in partial remission; D69.3 Immune thrombocytopenic purpura; K52.831 Collagenous colitis
CPT/HCPCS: 80053; 80061; 84443; 85025

== ENCOUNTER → 2024-03-02 11:35 | Outpatient (CLI) | payer MEDICARE, SELFPAY ==
[2022-06-25 12:22] VITALS: BMI 25.7
[2024-03-02 20:22] LABS: Add Manual Diff / Slide Review NO; Basophils Absolute Auto 0 /uL (0-100); Basophils Percent Auto 0.4 % (0-2); Eosinophils Absolute Auto 0 /uL (0-450); Eosinophils Percent Auto 0.4 % (2-4); Hematocrit 39.2 % (36-46); Hemoglobin 13.1 g/dL (12.0-16.0); Lymphocytes Absolute Auto 2700 /uL (1100-4500); Lymphocytes Percent Auto 28.9 % (25-40); Mean Corpuscular HGB Conc 33.4 % (30-36); Mean Corpuscular Hemoglobin 32.1 PG (26-34); Mean Corpuscular Volume 96.2 fL (80-100); Monocytes Absolute Auto 700 /uL (0-900); Monocytes Percent Auto 7.5 % (3-14); Neutrophils Absolute Auto 5800 /uL (1500-7000); Neutrophils Percent Auto 62.8 % (50-75); Platelet Count 66 X10^3/uL (150-400); Red Blood Cell Count 4.07 X10^6/uL (4.0-5.2); Red Cell Distribution Width 14.3 % (11.6-14.8); White Blood Cell Count 9.3 X10^3/uL (4.5-11.0)
== END ==
PROVIDERS: PCP Family Medicine; Visit Provider Family Medicine
DX: D69.3 Immune thrombocytopenic purpura (principal)
CPT/HCPCS: 85025